=== PATIENT | male | born 1970 | race Caucasian/White ===

== ENCOUNTER 2022-01-25 14:10 | Observation (INO) ==
[2022-01-25 14:50] LABS: Hematocrit (blood only) 30.9 % (40.1-51.0); Hemoglobin 9.9 g/dl (14.0-18.0); Mean Corpuscular Hemoglobin 25.5 pg (25.0-34.0); Mean Corpuscular Volume 79.6 fL (80.0-100.0); Mean Platelet Volume 10.7 fL (9.4-12.4); Platelet Count 214 K/uL (130-400); RDW Coefficient of Variation 13.3 % (11.5-14.5); RDW Standard Deviation 38.7 fL (36.4-46.3); Red Blood Count 3.88 M/uL (4.63-6.08); White Blood Count 8.09 K/ul (4.8-10.8)
[2022-01-25 15:14] LABS: Albumin Globulin Ratio 1.6 (0.9-2); BUN Creatinine Ratio 23.3 (10-20); Bilirubin,Total 0.7 mg/dl (0.2-1.0); Calcium 8.9 mg/dl (8.5-10.1); Creatinine Clr Calc Pharmacy 114.8 ml/min; Est GFR (African American) 112.6 ml/min; Est GFR (Non-African American) 97.2 ml/min; Globulin 2.5 gm/dl (2.5-4.0); Potassium 3.1 mmol/L (3.5-5.1); Total Protein 6.5 gm/dl (6.0-8.3)
[2022-01-25] MEDS ORDERED: POTASSIUM CHLORIDE / WTR 10 MEQ/100 ML PLCT IV ONE (16:17)
[2022-01-25] MEDS ORDERED: SODIUM CHLORIDE 0.9% 1000ML 1,000 ML IV ONE (16:17)
[2022-01-25] MEDS ORDERED: PANTOprazole 40 MG in SYRINGE 0 ML IV ONE (16:17)
[2022-01-25] MEDS ORDERED: ONDANSETRON INJ 2 MG/ML 2 ML VIAL IV STA (16:17)
[2022-01-25] MEDS ORDERED: FAMOTIDINE 20MG IV PUSH 20 MG/5 ML SYR IV STA (16:17)
--- NOTE | 2022-01-25 16:40 | Emergency Department Note ---
Impression & Plan Esophageal mass, Hypokalemia, Vomiting, Acute upper gastrointestinal bleeding, Anemia ED Provider Note NAME: JESSICA NUNEZ AGE: 51 SEX: M : 1970 ARRIVES VIA: Walk-In INFORMANT: Patient, ED PROVIDER(S): Christopher Santacruz DO CHIEF COMPLAINT: Nausea and vomiting HPI: The patient is a 51-year-old male who was recently diagnosed with esophageal mass. He is still awaiting formal work-up and treatment of this mass. He is received no surgery chemotherapy or radiation. He does have a follow-up appointment scheduled with [facility] oncology. He states he has noticed decreased p.o. intake nausea as well as vomiting. He denies having any fever. He denies having any chest pain. He denies having any difficulty breathing. He does note generalized weakness especially with any ambulation. The patient was not seen by his primary care physician today. He came to the emergency department because of ongoing symptoms which have been worsening. The patient has noticed dark stool recently. ROS: See above HPI for pertinent positives & negatives. A total of 10 systems reviewed and were otherwise negative. PAST MEDICAL HISTORY: See Below PAST SURGICAL HISTORY: See Below FAMILY HISTORY: See Below SOCIAL HISTORY: See Below HOME MEDICATIONS: See Below ALLERGIES: See Below VITALS: See Below PHYSICAL EXAMINATION: GENERAL: Patient is awake alert in no acute distress patient is resting comfo rtably and showing no signs of anxiety EYES: The conjunctivae are clear. The pupils are round and reactive. EARS, NOSE, MOUTH AND THROAT: The nose is without any evidence of any deformity. Mucous membranes are dry. NECK: The neck is nontender and supple. RESPIRATORY: Normal respiratory effort is noted there is no evidence of wheezing rhonchi or rales CARDIOVASCULAR: Regular rate and rhythm noted there no murmurs rubs or gallops normal S1 normal S2. GASTROINTESTINAL: The abdomen is soft. Abdomen is nontender. Rectal exam revealed brown stool which was heme positive. PELVIS: The Pelvis is stable. No tenderness to palpation is noted. BACK: No midline tenderness or or step-off noted range of motion in flexion extension as well as rotation no signs of muscle spasm noted MUSCULOSKELETAL/EXTREMITIES: There is no evidence of gross deformity full range of motion is noted in the hips and shoulders. SKIN: There is no obvious evidence of any rash. There are no petechiae, pallor or cyanosis noted. NEUROLOGIC: Patient is awake alert and oriented x3 MEDICAL DECISION MAKING: The patient is a 51-year-old male who presented to the emergency department because of decreased p.o. intake. The patient's had nausea. He has a known esophageal mass. He is trying to finish his work-up as an outpatient for this esophageal mass but he presented to the emergency department tonight because of ongoing symptoms and has not been able to eat. The patient was treated with IV fluids in emergency department. He was reevaluated multiple times. I [facility] the [facility] have agreed to evaluate the patient in the emergency department for further management and disposition. Triage Nursing notes reviewed. Prior medical records reviewed Vital Signs: reviewed and remarkable for no significant abnormalities Differential diagnosis: Infection, dehydration, metabolic abnormality, hypo/hyperglycemia, electrolyte disturbance, anemia, hypoxia, cardiac sources, intracerebral event, toxicologic, neurologic, as well as other pathologies. ER treatment provided: See below Diagnostics interpreted by me: ECG: EKG was obtained in the emergency department. My interpretation is normal sinus rhythm at 72 bpm. There is no ectopy. Nonspecific ST segment depressions were noted throughout. This was compared to a tracing from July 13, 2015. No changes were noted. Cardiac Monitoring: An order was placed for continuous cardiac monitoring. The monitor shows a rate of 63 bpm with sinus rhythm. Laboratory studies: As stated above and show below. Imaging studies: See below Consultation(s): I discussed this case with Lissett who is [facility] They will evaluate the patient in the emergency department. Past Med/Surg History Medical History (Updated 01/25/22 @ 23:28 by Christopher Santacruz DO) Adenocarcinoma Esophageal neoplasm GIB (gastrointestinal bleeding) HTN (hypertension) Hypertension Hypokalemia Social History Smoking Status: Never smoker Second Hand Exposure: No; Do You Dip or Chew Tobacco: No; Hx Alcohol Use: No Hx Substance Use: No Preferred Language: Kinyarwanda Communication Ability: Effective Coding Compliance Auditor Required: No Current Living Situation: Parent Other Information That Helps Us Care for You: No Feels Safe at Home: Yes Safety Concerns: Feels Safe At This Time Assistive Devices: None Allergies Allergies Allergy/AdvReac Type Severity Reaction Status Date / Time No Known Allergies Allergy Unknown Verified 02/05/06 23:06 Results & Data (ED) Vital Signs Vital Signs - 24 hr 01/25/22 14:16 Temperature 36.8 C Temperature Source Temporal Artery Scan Pulse Rate 98 H Respiratory Rate 20 Respiratory Effort / Characteristics Non-Labored Respiratory Depth Normal Blood Pressure 107/71 Blood Pressure Mean 83 Pulse Oximetry 96 Oxygen Delivery Method Room Air Sepsis Recent Fever Within 48 Hours No Sepsis New/Unexplained Change in Mental Status N/A Sepsis Action Taken by Nursing No Action Required Home Medications Current Medication List: was personally reviewed by me Laboratory Data Attestation: I reviewed the patient's lab results. Result diagrams: 01/25/22 21:32 01/25/22 14:39 Lab Results 01/25/22 01/25/22 01/25/22 Range/Units 14:39 14:39 14:39 WBC 8.09 (4.8-10.8) K/ul RBC 3.88 L (4.63-6.08) M/uL Hgb 9.9 L (14.0-18.0) g/dl Hct 30.9 L (40.1-51.0) % MCV 79.6 L (80.0-100.0) fL MCH 25.5 (25.0-34.0) pg MCHC 32.0 (32.0-36.0) g/dL RDW Std Deviation 38.7 (36.4-46.3) fL RDW Coeff of Kong 13.3 (11.5-14.5) % Plt Count 214 (130-400) K/uL MPV 10.7 (9.4-12.4) fL Immature Gran % (Auto) 0.5 % Neut % (Auto) 65.5 % Lymph % (Auto) 23.6 % Liberty % (Auto) 10.1 % Eos % (Auto) 0.1 % Baso % (Auto) 0.2 % Neut # (Auto) 5.29 (1.4-6.5) K/uL Lymph # (Auto) 1.91 (1.2-3.4) K/uL Liberty # (Auto) 0.82 (0.24-0.82) K/uL Eos # (Auto) 0.01 (0-0.50) K/uL Baso # (Auto) 0.02 (0-0.2) K/uL Immature Gran # (Auto) 0.04 H (0.00-0.02) K/uL Sodium 138 (136-145) mmol/L Potassium 3.1 L (3.5-5.1) mmol/L Chloride 98 (98-107) mmol/L Carbon Dioxide 30 (21-32) mmol/L Anion Gap 10 (3-11) BUN 21 (6-23) mg/dl Creatinine 0.90 (0.6-1.4) mg/dl Est Cr Clr Drug Dosing 114.8 ml/min Est GFR ( Amer) 112.6 ml/min Est GFR (Non-Af Amer) 97.2 ml/min BUN/Creatinine Ratio 23.3 H (10-20) Glucose 116 H (70-99(Fasting)) mg/dl Calcium 8.9 (8.5-10.1) mg/dl Magnesium 1.9 (1.7-2.4) mg/dl Total Bilirubin 0.7 (0.2-1.0) mg/dl AST 26 (13-39) U/L ALT 38 (7-52) U/L Alkaline Phosphatase 59 (34-104) U/L Troponin I High Sens 7.6 (0-20) pg/ml Total Protein 6.5 (6.0-8.3) gm/dl Albumin 4.0 (3.4-5.0) gm/dl Globulin 2.5 (2.5-4.0) gm/dl Albumin/Globulin Ratio 1.6 (0.9-2) Lipase 36 (11-82) U/L Administered Medications Potassium Chloride (K [place] / Wtr) 10 meq in 100 mls @ 100 mls/hr IV Q1H LONG Stop: 01/26/22 01:18 Last Admin: 01/25/22 21:50 Dose: 100 mls/hr Documented By: RITA Sodium Chloride (Nss 1000ml) 1,000 mls @ 80 mls/hr IV .[id number] LONG Stop: 02/24/22 21:18 Last Admin: 01/25/22 21:38 Dose: 80 mls/hr Documented By: RITA Discontinued Medications Sodium Chloride (Nss 1000ml) 1,000 mls @ 999 mls/hr IV .[id number] ONE Stop: 01/25/22 17:17 Last Infusion: 01/25/22 17:49 Dose: 0 mls/hr Documented By: Admin: 01/25/22 16:42 Dose: 999 mls/hr Documented By: OL Potassium Chloride (K [place] / Wtr) 10 meq in 100 mls @ 100 mls/hr IV ONE ONE; Protocol Stop: 01/25/22 17:16 Last Infusion: 01/25/22 17:48 Dose: 0 mls/hr Documented By: Admin: 01/25/22 16:42 Dose: 100 mls/hr Documented By: OL Pantoprazole Sodium 40 mg/ (Syringe) 10 mls @ 5 mls/min IV NOW ONE Stop: 01/25/22 16:18 Last Admin: 01/25/22 18:05 Dose: 5 mls/min Documented By: TRH Famotidine (Pepcid 20mg Iv Push) 20 mg in 5 mls @ 2.5 mls/min IV NOW STA Stop: 01/25/22 16:18 Last Admin: 01/25/22 16:42 Dose: 2.5 mls/min Documented By: OL Sodium Chloride (Nss 1000ml) 1,000 mls @ 80 mls/hr IV .[id number] LONG Stop: 02/24/22 18:14 Last Infusion: 01/25/22 21:37 Dose: 80 mls/hr Documented By: Admin: 01/25/22 20:21 Dose: 80 mls/hr Documented By: SM Ondansetron HCl (Ondansetron Inj 2 Mg/Ml 2 Ml Vial) 4 mg IV NOW STA Stop: 01/25/22 16:18 Last Admin: 01/25/22 16:42 Dose: 4 mg Documented By: OL Imaging Data Radiologist's Impression: Chest X-Ray 01/25/22 16:20 XR chest 1V portable HISTORY: Vomiting. COMPARISON: Chest 07/13/2015. FINDINGS: The lungs are clear. Cardiac silhouette is normal in size. No pleural effusions. No pneumothorax. Mild elevation of the right hemidiaphragm, unchanged. IMPRESSION: No acute process. ACT 112: Negative or not required by law. Electronically signed by: Toney Rodney M.D. 01/25/2022 5:36 PM KUB X-Ray 01/25/22 16:20 KUB HISTORY: vomiting COMPARISON: KUB 05/29/2007. FINDINGS: There is a relative paucity of small bowel gas. There are no dilated loops of small bowel to suggest an obstruction. No renal calculi. No ureteral calculi. No pneumoperitoneum or pneumatosis. IMPRESSION: No evidence for bowel obstruction. ACT 112: Negative or not required by law. Electronically signed by: Toney Rodney M.D. 01/25/2022 5:37 PM Discharge Plan Visit Data Chief Complaint: Vomiting Stated Complaint: NAUSEA, VOMITTING ED Provider: Christopher Santacruz Discharge Problem: Esophageal mass, Hypokalemia, Vomiting, Acute upper gastrointestinal bleeding, Anemia Patient Disposition: Admitted As Inpatient Discharge Instructions Interventions: ED Discharge Assessment Last Done: 01/25/22 21:19
[2022-01-25 16:56] LABS: Basophils # (auto) 0.02 K/uL (0-0.2); Basophils % (auto) 0.2 %; Eosinophils # (auto) 0.01 K/uL (0-0.50); Eosinophils % (auto) 0.1 %; Immature Granulocytes # (auto) 0.04 K/uL (0.00-0.02); Immature Granulocytes % (auto) 0.5 %; Lymphocytes # (auto) 1.91 K/uL (1.2-3.4); Lymphocytes % (auto) 23.6 %; Monocytes # (auto) 0.82 K/uL (0.24-0.82); Monocytes % (auto) 10.1 %; Neutrophils # (auto) 5.29 K/uL (1.4-6.5); Neutrophils % (auto) 65.5 %
--- NOTE | 2022-01-25 16:57 | History & Physical Report ---
Date of Service January 25, 2022 Assessment & Plan (1) Esophageal mass: (2) Adenocarcinoma: (3) HTN (hypertension): (4) GIB (gastrointestinal bleeding): (5) Hypokalemia: Plan 51 y/o with recent new diagnosis of esophageal CA/poorly differentiated adenocarcinoma diagnosed 01/09/2022; PET scan to be done 02/11 and f/u with Dr. Centeno. Here with N/V and overall weakness/dehydration. Heme + stool. Hematemesis reported. PPI, antiemetics, GI Consult. Pt is T/C with 2 UPRBC on hold. 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 An EGD was performed on 01/09 with results revealing a hypoechoic mass at the GE junction. He continues to be in the process of obtaining additional testing, including a PET scan. He has not started any chemotherapy or radiation treatment. PET scan scheduled: 02/11; follow up thereafter with Dr. Centeno to discuss tx options. Persistent N/V with hematemesis following EGD. Zofran 4 mg IV Q6 PRN; consider scheduling if becomes intractable GIB: EGD was performed on 01/[address] Dobbs with results revealing a hypoechoic mass at the GE junction Hgb 9.9; On 01/22 Hgb 9.7 and on 01/16 10.3. Trend H/H Q6; reeval in AM. Heme + stool today Pt received IV Pepcid; ordered Protonix 40 mg IV BID GI consult placed and discussed over [place] Text with Dr. Ruiz who is covering this weekend. He will see on Sat 01/26 HTN: SBP 100-105 in ED. Continue Coreg and Lisinopril; hold if hypotensive or bleeding continues Hypokalemia: In the setting of dehydration from vomiting K+ 3.1; received one K+ rider in ED. Will order a total of 4 more K+ riders for a total of 50mEq. Will trend K+ level and replete as necessary. Goals of Care; conversation: Patient has stated that he has considered what he would like to do in the event that his treatment options are limited. He appears to have a reasonable approach to his diagnosis; despite it being so new. He stated that his father at the age of 55 with cancer, but was a smoker. Patient has stated that he would like to be a DNR/DNI in the event of cardiac or respiratory arrest. Would suggest palliative medicine formal consultation to follow along with this gentleman. Disposition: PCP: Dr. Abrams Code Status: DNR/DNI VTE Prophylaxis: Plan to [place]. History of Present Illness Chief Complaint: dehydration, nausea and vomiting Primary Care Provider: Brigid Joseph PA-C Mr. Torres is a 51 year old male who presented to the [facility] with symptoms of dehydration and nausea and vomiting that has been occurring over the past three weeks. He says he has not been able to keep any nourishment inside his body since his EGD. 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 An EGD was performed on 01/09 with results revealing a hypoechoic mass at the GE junction. He continues to be in the process of obtaining additional testing, including a PET scan. He has not started any chemotherapy or radiation treatment. Additional PMH includes: HTN. Patient stool is heme +. No u pper GI symptoms, aside from nausea. Pt was given Pepcid and Zofran in the ED. KUB is pending. GI consult placed and message sent to GI. PPi IV BID, antiemetics, and trending labs ordered. Patient denies VALENTINE, dizziness, SOB, CP, palpitations. Patient is lying in his hospital bed with massey appearance, but AAOx3 and was conversant without difficulty. He stated that he was set to have a PET scan on February 11 and then following would have an appointment with oncologist Dr. Peralta in order to discuss treatment options. Patient will be admitted for further evaluation and management. Please see A/P for further details. Allergies Allergy/AdvReac Type Severity Reaction Status Date / Time No Known Allergies Allergy Unknown Verified 02/05/06 23:06 Past Med/Surg History Medical History (Updated 01/25/22 @ 17:17 by GARRETT Garcia) Adenocarcinoma Esophageal neoplasm GIB (gastrointestinal bleeding) HTN (hypertension) Hypertension Hypokalemia Social History Smoking Status: Never smoker Feels Safe at Home: Yes Review of Systems Review of Systems: Neuro: (-) Falls, trauma, slurred speech HEENT: (-) VALENTINE, dizziness, dysphagia, visual or auditory changes CV: (-) CP, palpitations, swelling Resp: (-) SOB GI: (+) appetite changes, (+) N/V/D, bowel changes : (-) urinary changes Skin: (-) rashes Psych: (-) anxiety, depression Physical Exam Physical Exam: Neuro: AAOx4, PERRLA, no aphagia, memory changes, CNII-XII grossly intact HEENT: head normocephalic, moist mucus membranes CV: S1/S2, (-) M/G/R, (-) edema, cap refill < 3 seconds Resp: Lungs CTA in all weaver. On RA GI: Abdomen S/NT/ND, Ax4 bowel sounds, (-) CVA tenderness Musculoskeletal: 5/5 B/L UE strength, 5/5 B/L LE strength. No gait disturbance Skin: dusky massey appearance. (-) rashes , (-) erythema. Psych: flat mood Results & Data Results & Data ([facility]) Vital Signs (Past 12 Hours) Vital Signs Temp Pulse Resp BP Pulse Ox O2 Del Method 01/25/22 14:16 36.8 C 98 H 20 107/71 96 Room Air Laboratory Results Short CBC 01/25/22 Range/Units 14:39 WBC 8.09 (4.8-10.8) K/ul Hgb 9.9 L (14.0-18.0) g/dl Hct 30.9 L (40.1-51.0) % Plt Count 214 (130-400) K/uL BMP 01/25/22 14:39 Sodium 138 Potassium 3.1 L Chloride 98 Carbon Dioxide 30 BUN 21 Creatinine 0.90 Glucose 116 H Calcium 8.9 Liver Function 01/25/22 Range/Units 14:39 Total Bilirubin 0.7 (0.2-1.0) mg/dl AST 26 (13-39) U/L ALT 38 (7-52) U/L Alkaline Phosphatase 59 (34-104) U/L Albumin 4.0 (3.4-5.0) gm/dl Diagnostic Findings Chest X-Ray 01/25/22 16:20 XR chest 1V portable HISTORY: Vomiting. COMPARISON: Chest 07/13/2015. FINDINGS: The lungs are clear. Cardiac silhouette is normal in size. No pleural effusions. No pneumothorax. Mild elevation of the right hemidiaphragm, unchanged. IMPRESSION: No acute process. ACT 112: Negative or not required by law. Electronically signed by: Toney Rodney M.D. 01/25/2022 5:36 PM KUB X-Ray 01/25/22 16:20 KUB HISTORY: vomiting COMPARISON: KUB 05/29/2007. FINDINGS: There is a relative paucity of small bowel gas. There are no dilated loops of small bowel to suggest an obstruction. No renal calculi. No ureteral calculi. No pneumoperitoneum or pneumatosis. IMPRESSION: No evidence for bowel obstruction. ACT 112: Negative or not required by law. Electronically signed by: Toney Rodney M.D. 01/25/2022 5:37 PM Code Status & VTE Plan Code Status DNR/DNI in the event of cardiac and respiratory arrest VTE Prophylaxis Plan VTE Prophylaxis will be ordered: Yes Supervising Physician Co-Signing Physician Notes 51-year-old gentleman with recent new diagnosis of esophageal cancer [poorly differentiated adenocarcinoma diagnosed 01/09/2022] presented to our ED 01/25 with complaint of nausea/vomiting/weakness/dehydration/inability to put down any food since last few weeks. Patient was found to have Hemoccult positive stool at ED. Hemoglobin around 9.9 at presentation, outpatient hemoglobin around 10.3. Admitting imagings reviewed. Admitting labs reviewed, replete potassium. Renal function appears normal. Admitting troponin WNL, EKG with NSR. GI consult, n.p.o., PPI IV, Zofran, monitor and replete electrolytes. IV fluids. Upon examination: GENERAL: Alert and oriented x3. NAD, on RA. HEENT: No pallor, no icterus. Pupils equal, round and reactive to light. Oral mucosa dry. NECK: No JVD, no neck masses. HEART: S1 and S2 heard. Regular rate and rhythm. No murmur, no gallop. RESPIRATORY SYSTEM: Normal AP diameter. No accessory muscle use. No wheezing, no crackles. ABDOMEN: Soft, bowel sounds present, nontender, no distention. CENTRAL NERVOUS SYSTEM: No facial droop. Speech is clear. Obeys simple commands. Moves extremities. EXTREMITIES: No edema, no erythema seen. I have seen and examined the patient and have discussed the case with the provider above. I agree with the assessment and plan as stated. This is
[2022-01-25] MEDS ORDERED: SODIUM CHLORIDE 0.9% 250 ML IV PRN (17:09)
--- NOTE | 2022-01-25 17:37 | XRay Report ---
XR chest 1V portable HISTORY: Vomiting. COMPARISON: Chest 07/13/2015. FINDINGS: The lungs are clear. Cardiac silhouette is normal in size. No pleural effusions. No pneumot horax. Mild elevation of the right hemidiaphragm, unchanged. IMPRESSION: No acute process. ACT 112: Negative or not required by law. Electronically signed by: Toney Rodney M.D. 01/25/2022 5:36 PM
--- NOTE | 2022-01-25 17:39 | XRay Report ---
KUB HISTORY: vomiting COMPARISON: KUB 05/29/2007. FINDINGS: There is a relative paucity of small bowel gas. There are no dilated loops of small bowel t o suggest an obstruction. No renal calculi. No ureteral calculi. No pneumoperitoneum or pneumatosis. IMPRESSION: No evidence for bowel obstruction. ACT 112: Negative or not required by law. Electronically signed by: Toney Rodney M.D. 01/25/2022 5:37 PM
[2022-01-25 17:43] LABS: Magnesium 1.9 mg/dl (1.7-2.4)
[2022-01-25 17:45] LABS: Troponin I High Sensitivity 7.6 pg/ml (0-20)
[2022-01-25] MEDS ORDERED: SODIUM CHLORIDE 0.9% 1000ML 1,000 ML IV SCH (18:15)
[2022-01-25] MEDS ORDERED: ONDANSETRON INJ 2 MG/ML 2 ML VIAL IV PRN (21:19)
[2022-01-25] MEDS: SODIUM CHLORIDE 0.9% 1000ML 1,000 ML IV SCH (21:38)
[2022-01-25 21:42] LABS: Hematocrit (blood only) 28.3 % (40.1-51.0); Hemoglobin 8.8 g/dl (14.0-18.0)
[2022-01-25] MEDS: POTASSIUM CHLORIDE / WTR 10 MEQ/100 ML PLCT IV SCH (21:50)
[2022-01-26] MEDS: POTASSIUM CHLORIDE / WTR 10 MEQ/100 ML PLCT IV SCH ×5 (00:25→10:08)
[2022-01-26 03:39] LABS: Hematocrit (blood only) 27.6 % (40.1-51.0); Hemoglobin 8.6 g/dl (14.0-18.0); Mean Corpuscular Hgb Conc 31.2 g/dL (32.0-36.0); Mean Corpuscular Volume 80.2 fL (80.0-100.0); Mean Platelet Volume 10.5 fL (9.4-12.4); Platelet Count 194 K/uL (130-400); RDW Coefficient of Variation 13.2 % (11.5-14.5); RDW Standard Deviation 38.5 fL (36.4-46.3); Red Blood Count 3.44 M/uL (4.63-6.08); White Blood Count 7.33 K/ul (4.8-10.8)
[2022-01-26 03:57] LABS: BUN Creatinine Ratio 23.4 (10-20); Calcium 8.1 mg/dl (8.5-10.1); Creatinine Clr Calc Pharmacy 134.8 ml/min; Est GFR (African American) 120.1 ml/min; Est GFR (Non-African American) 103.6 ml/min; Potassium 3.4 mmol/L (3.5-5.1)
--- NOTE | 2022-01-26 07:20 | Electrocardiogram Report ---
Test Reason : Blood Pressure : / mmHG Vent. Rate : 072 BPM Atrial Rate : 072 BPM P-R Int : 146 ms QRS Dur : 100 ms QT Int : 416 ms P-R-T Axes : 055 -16 037 degrees QTc Int : 455 ms Normal sinus rhythm Incomplete right bundle branch block Abnormal ECG When compared with ECG of 13-JUL-2015 19:38, No significant change was found Confirmed by Enrico Deutsch ([id number]) on 01/26/2022 7:20:23 AM Referred By: REFERRED SELF Confirmed By:Armando Deutsch
--- NOTE | 2022-01-26 08:16 | XRay Report ---
XR chest 1V portable HISTORY: post-operative coughing and wheezing COMPARISON: Chest 01/25/2022. FINDINGS: The lungs are clear. Cardiac silhouette is normal in size. No pleural effusions. No pneumot horax. IMPRESSION: No acute process. ACT 112: Negative or not required by law. Electronically signed by: Toney Rodney M.D. 01/26/2022 8:14 AM
--- NOTE | 2022-01-26 08:24 | Hospitalist Progress Note ---
Date of Service January 26, 2022 Assessment & Plan (1) Esophageal mass: (2) Adenocarcinoma: (3) HTN (hypertension): (4) GIB (gastrointestinal bleeding): (5) Hypokalemia: Plan 51 y/o with recent new diagnosis of esophageal CA/poorly differentiated adenocarcinoma diagnosed 01/09/2022; PET scan to be done 02/11 and f/u with Dr. Centeno. Here with N/V and overall weakness/dehydration. Heme + stool. Hematemesis reported. PPI, antiemetics, GI Consult. Pt is T/C with 2 UPRBC on hold. 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 An EGD was performed on 01/09 with results revealing a hypoechoic mass at the GE junction. He continues to be in the process of obtaining additional testing, including a PET scan. He has not started any chemotherapy or radiation treatment. PET scan scheduled: 02/11; follow up thereafter with Dr. Centeno to discuss tx options. Persistent N/V with hematemesis following EGD. Zofran 4 mg IV Q6 PRN; consider scheduling if becomes intractable 01/26 -clinically much improved, no more nausea vomiting. No abdominal pain. GIB: EGD was performed on 01/[address] Dobbs with results revealing a hypoechoic m ass at the GE junction Hgb 9.9; On 01/22 Hgb 9.7 and on 01/16 10.3. Trend H/H Q6; reeval in AM. Heme + stool today Pt received IV Pepcid; ordered Protonix 40 mg IV BID GI consult placed and discussed w/Dr. Ruiz 01/26 -patient seen by GI, no need for EGD at this time. Hemoglobin stable. Patient did not require any blood transfusion. Per GI, okay to start liquid diet, and follow-up with oncology. HTN: SBP 100-105 in ED. Current BP 123/74 at home on? Coreg and Lisinopril- hold for low BP Hypokalemia: In the setting of dehydration from vomiting K+ 3.1 on admission, improved to 3.4 today cont. w/ IV supplement. Will start liquid diet Goals of Care; conversation: Patient has stated that he has considered what he would like to do in the event that his treatment options are limited. He appears to have a reasonable approach to his diagnosis; despite it being so new. He stated that his father at the age of 55 with cancer, but was a smoker. Patient has stated that he would like to be a DNR/DNI in the event of cardiac or respiratory arrest. Would suggest palliative medicine formal consultation to follow along with this gentleman. Disposition: PCP: Dr. Abrams Code Status: DNR/DNI VTE Prophylaxis: Plan to return home at [place]. Admission and Anticipated Discharge Date Admission Date: January 25, 2022 Subjective Pt seen in follow up n/v, new myraoph. ca GI consulted Currently patient lying in bed, in no acute distress No more nausea or vomiting, also denies any abdominal pain Hgb stable, pt did not require any blood transfusion Seen by GI, no EGD recommended at this time, will start liquid diet Will try to see if dietitian is available this weekend Patient otherwise denies any fevers, chills, chest pain, shortness of breath. He has follow-ups with oncology scheduled. Review of Systems Review of Systems: All systems reviewed & are unremarkable except as noted in Subjective Physical Exam Physical Exam: GENERAL: Alert and oriented x3. NAD, on RA. HEENT: NC/AT, No pallor, no icterus.EOMI. Pupils equal, round and reactive to light. Oral mucosa dry. NECK: No JVD, no neck masses. HEART: S1 and S2 heard. Regular rate and rhythm. No murmur, no gallop. RESPIRATORY: Normal AP diameter. No accessory muscle use. No wheezing, no crackles. ABDOMEN: Soft, bowel sounds present, nontender, no distention. NEURO: alert, oriented x3, no facial droop. Speech is clear. Obeys simple commands. Moves extremities. EXTREMITIES: No edema, no erythema seen. Results & Data Results & Data ([facility]) Vital Signs (Past 12 Hours) Vital Signs Temp Pulse Pulse Pulse Resp BP BP 01/26/22 08:14 37.4 C 76 18 123/74 01/26/22 07:18 65 01/26/22 03:38 37.0 C 71 18 122/72 01/26/22 00:08 68 01/26/22 00:06 37.0 C 64 12 129/75 01/25/22 23:30 66 17 136/84 01/25/22 23:08 67 20 146/84 H 01/25/22 23:00 68 17 120/80 01/25/22 21:40 63 18 123/75 01/25/22 21:39 69 18 123/75 Pulse Ox O2 Del Method 01/26/22 08:14 94 Room Air 01/26/22 07:18 01/26/22 03:38 94 Room Air 01/26/22 00:08 01/26/22 00:06 96 Room Air 01/25/22 23:30 96 Room Air 01/25/22 23:08 97 Room Air 01/25/22 23:00 97 Room Air 01/25/22 21:40 97 Room Air 01/25/22 21:39 97 Room Air Laboratory Results 01/26/22 01/26/22 01/25/22 Range/Units 03:28 03:28 21:32 WBC 7.33 (4.8-10.8) K/ul RBC 3.44 L (4.63-6.08) M/uL Hgb 8.6 L 8.8 L (14.0-18.0) g/dl Hct 27.6 L 28.3 L (40.1-51.0) % MCV 80.2 (80.0-100.0) fL MCH 25.0 (25.0-34.0) pg MCHC 31.2 L (32.0-36.0) g/dL RDW Std Deviation 38.5 (36.4-46.3) fL RDW Coeff of [place] 13.2 (11.5-14.5) % Plt Count 194 (130-400) K/uL MPV 10.5 (9.4-12.4) fL Immature Gran % (Auto) % Neut % (Auto) % Lymph % (Auto) % [place] % (Auto) % Eos % (Auto) % Baso % (Auto) % Neut # (Auto) (1.4-6.5) K/uL Lymph # (Auto) (1.2-3.4) K/uL [place] # (Auto) (0.24-0.82) K/uL Eos # (Auto) (0-0.50) K/uL Baso # (Auto) (0-0.2) K/uL Immature Gran # (Auto) (0.00-0.02) K/uL Sodium 137 (136-145) mmol/L Potassium 3.4 L (3.5-5.1) mmol/L Chloride 102 (98-107) mmol/L Carbon Dioxide 26 (21-32) mmol/L Anion Gap 9 (3-11) BUN 18 (6-23) mg/dl Creatinine 0.77 (0.6-1.4) mg/dl Est Cr Clr Drug Dosing 134.8 ml/min Est GFR ( Amer) 120.1 ml/min Est GFR (Non-Af Amer) 103.6 ml/min BUN/Creatinine Ratio 23.4 H (10-20) Glucose 84 (70-99(Fasting)) mg/dl Calcium 8.1 L (8.5-10.1) mg/dl Magnesium (1.7-2.4) mg/dl Total Bilirubin (0.2-1.0) mg/dl AST (13-39) U/L ALT (7-52) U/L Alkaline Phosphatase (34-104) U/L Troponin I High Sens (0-20) pg/ml Total Protein (6.0-8.3) gm/dl Albumin (3.4-5.0) gm/dl Globulin (2.5-4.0) gm/dl Albumin/Globulin Ratio (0.9-2) Lipase (11-82) U/L SARS-CoV-2, RNA, NAAT (NEGATIVE) Blood Type Blood Type Recheck Antibody Screen Crossmatch 01/25/22 01/25/22 01/25/22 Range/Units 18:08 17:50 17:21 WBC (4.8-10.8) K/ul RBC (4.63-6.08) M/uL Hgb (14.0-18.0) g/dl Hct (40.1-51.0) % MCV (80.0-100.0) fL MCH (25.0-34.0) pg MCHC (32.0-36.0) g/dL RDW Std Deviation (36.4-46.3) fL RDW Coeff of [place] (11.5-14.5) % Plt Count (130-400) K/uL MPV (9.4-12.4) fL Immature Gran % (Auto) % Neut % (Auto) % Lymph % (Auto) % [place] % (Auto) % Eos % (Auto) % Baso % (Auto) % Neut # (Auto) (1.4-6.5) K/uL Lymph # (Auto) (1.2-3.4) K/uL [place] # (Auto) (0.24-0.82) K/uL Eos # (Auto) (0-0.50) K/uL Baso # (Auto) (0-0.2) K/uL Immature Gran # (Auto) (0.00-0.02) K/uL Sodium (136-145) mmol/L Potassium (3.5-5.1) mmol/L Chloride (98-107) mmol/L Carbon Dioxide (21-32) mmol/L Anion Gap (3-11) BUN (6-23) mg/dl Creatinine (0.6-1.4) mg/dl Est Cr Clr Drug Dosing ml/min Est GFR ( Amer) ml/min Est GFR (Non-Af Amer) ml/min BUN/Creatinine Ratio (10-20) Glucose (70-99(Fasting)) mg/dl Calcium (8.5-10.1) mg/dl Magnesium (1.7-2.4) mg/dl Total Bilirubin (0.2-1.0) mg/dl AST (13-39) U/L ALT (7-52) U/L Alkaline Phosphatase (34-104) U/L Troponin I High Sens (0-20) pg/ml Total Protein (6.0-8.3) gm/dl Albumin (3.4-5.0) gm/dl Globulin (2.5-4.0) gm/dl Albumin/Globulin Ratio (0.9-2) Lipase (11-82) U/L SARS-CoV-2, RNA, NAAT NEGATIVE (NEGATIVE) Blood Type O Positive Blood Type Recheck O Positive Antibody Screen NEGATIVE Crossmatch See Detail 01/25/22 01/25/22 01/25/22 Range/Units 14:39 14:39 14:39 WBC 8.09 (4.8-10.8) K/ul RBC 3.88 L (4.63-6.08) M/uL Hgb 9.9 L (14.0-18.0) g/dl Hct 30.9 L (40.1-51.0) % MCV 79.6 L (80.0-100.0) fL MCH 25.5 (25.0-34.0) pg MCHC 32.0 (32.0-36.0) g/dL RDW Std Deviation 38.7 (36.4-46.3) fL RDW Coeff of [place] 13.3 (11.5-14.5) % Plt Count 214 (130-400) K/uL MPV 10.7 (9.4-12.4) fL Immature Gran % (Auto) 0.5 % Neut % (Auto) 65.5 % Lymph % (Auto) 23.6 % [place] % (Auto) 10.1 % Eos % (Auto) 0.1 % Baso % (Auto) 0.2 % Neut # (Auto) 5.29 (1.4-6.5) K/uL Lymph # (Auto) 1.91 (1.2-3.4) K/uL [place] # (Auto) 0.82 (0.24-0.82) K/uL Eos # (Auto) 0.01 (0-0.50) K/uL Baso # (Auto) 0.02 (0-0.2) K/uL Immature Gran # (Auto) 0.04 H (0.00-0.02) K/uL Sodium 138 (136-145) mmol/L Potassium 3.1 L (3.5-5.1) mmol/L Chloride 98 (98-107) mmol/L Carbon Dioxide 30 (21-32) mmol/L Anion Gap 10 (3-11) BUN 21 (6-23) mg/dl Creatinine 0.90 (0.6-1.4) mg/dl Est Cr Clr Drug Dosing 114.8 ml/min Est GFR ( Amer) 112.6 ml/min Est GFR (Non-Af Amer) 97.2 ml/min BUN/Creatinine Ratio 23.3 H (10-20) Glucose 116 H (70-99(Fasting)) mg/dl Calcium 8.9 (8.5-10.1) mg/dl Magnesium 1.9 (1.7-2.4) mg/dl Total Bilirubin 0.7 (0.2-1.0) mg/dl AST 26 (13-39) U/L ALT 38 (7-52) U/L Alkaline Phosphatase 59 (34-104) U/L Troponin I High Sens 7.6 (0-20) pg/ml Total Protein 6.5 (6.0-8.3) gm/dl Albumin 4.0 (3.4-5.0) gm/dl Globulin 2.5 (2.5-4.0) gm/dl Albumin/Globulin Ratio 1.6 (0.9-2) Lipase 36 (11-82) U/L SARS-CoV-2, RNA, NAAT (NEGATIVE) Blood Type Blood Type Recheck Antibody Screen Crossmatch Medications Administered Current Inpatient Medications Pantoprazole Sodium 40 mg/ (Syringe) 10 mls @ 5 mls/min IV BID LONG Stop: 02/25/22 08:59 Sodium Chloride (Nss 1000ml) 1,000 mls @ 80 mls/hr IV .[id number] LONG Stop: 02/24/22 21:18 Last Infusion: 01/26/22 01:29 Dose: 80 mls/hr Potassium Chloride (K [place] / Wtr) 10 meq in 100 mls @ 100 mls/hr IV Q1H LONG Stop: 01/26/22 10:29 Ondansetron HCl (Ondansetron Inj 2 Mg/Ml 2 Ml Vial) 4 mg IV Q6H PRN PRN Reason: Nausea And Vomiting Stop: 02/24/22 21:18
[2022-01-26] MEDS ORDERED: PANTOprazole 40 MG in SYRINGE 0 ML IV SCH (09:00)
[2022-01-26 09:35] LABS: Hematocrit (blood only) 27.6 % (40.1-51.0); Hemoglobin 8.7 g/dl (14.0-18.0)
[2022-01-26] MEDS: SODIUM CHLORIDE 0.9% 1000ML 1,000 ML IV SCH (10:09)
--- NOTE | 2022-01-26 10:18 | Gastrointestinal Consultation ---
Date of Consultation January 26, 2022 Assessment & Plan (1) GIB (gastrointestinal bleeding): Pleasant man unfortunately recently diagnosed with esophageal cancer. While he is bringing up blood this is most likely due to the friable nature of his malignancy and there isn't much that we can or need to do for this. His symptoms that he is having are the same symptoms he had prior to diagnosis. The only viable treatment is to start undergoing treatment directed at his malignancy. Endoscopically the only thing that can be done for him is esophageal stent which would only be a last resort. He can actually go home when he feels up to it. He will need to subsist on thin liquids with supplements until tr eatment underway Present on Admission?: Yes (2) Esophageal mass: As above. The only thing to offer him is treatment directed at his malignancy Present on Admission?: Yes History of Present Illness Reason for Consultation: hematemesis Requesting Physician: Carina Reid MD Attending Physician: Shaquille Quesada MD History of Present Illness 51 year old man diagnosed with esophageal cancer on EGD earlier in December. He went to the doctor because he couldn't keep anything down. He was told he had a cancer with possibly a few lymph nodes. He has met with an oncologist and treatment will be decided on meeting after PET scan is done on 02/11. Since the EGD he has continued with his same symptoms. He says that stuff just comes back up on him. On occasion there can be some blood with it. He has trouble with water as well although some stuff stays down. He has no pain and he says he isn't really vomiting. He wasn't battling much with heartburn but did have an EGD 15 years ago that "showed inflammation Allergies Allergy/AdvReac Type Severity Reaction Status Date / Time No Known Allergies Allergy Unknown Verified 02/05/06 23:06 Patient History Medical History (Updated 01/26/22 @ 10:14 by Thomas Ruiz Jr, MD) Adenocarcinoma Esophageal mass Esophageal neoplasm GIB (gastrointestinal bleeding) HTN (hypertension) Hypertension Hypokalemia Social History Smoking Status: Never smoker Second Hand Exposure: No; Do You Dip or Chew Tobacco: No; Hx Alcohol Use: No Hx Substance Use: No Preferred Language: Kuwaiti Communication Ability: Effective Cat Scan Tech Required: No Current Living Situation: Parent Other Information That Helps Us Care for You: No Feels Safe at Home: Yes Safety Concerns: Feels Safe At This Time Assistive Devices: None Review of Systems Review of Systems: All systems reviewed & are unremarkable except as noted in HPI & below Physical Exam Constitutional: WD/WN, vitals as above Eyes: PERRL, conjunctivae normal, anicteric sclerae ENMT: external ear and nose normal, oropharynx normal Neck: trachea midline, no thyromegaly Respiratory: normal respiratory effort, lungs clear to auscultation Cardiovascular: RRR, no murmur, no edema Gastrointestinal (Abdomen): normal bowel sounds, soft, nontender, no hepatosplenomegaly Musculoskeletal: no cyanosis or clubbing, extremities motor strength 5/5 Skin: no rashes, warm and dry Psychiatric: Orientation: alert and oriented x 3 Results & Data ([facility]) Vital Signs (Past 12 Hours) Vital Signs Temp Pulse Pulse Resp BP BP Pulse Ox 01/26/22 09:00 01/26/22 08:14 37.4 C 76 18 123/74 94 01/26/22 07:18 65 01/26/22 03:38 37.0 C 71 18 122/72 94 01/26/22 00:08 68 01/26/22 00:06 37.0 C 64 12 129/75 96 01/25/22 23:30 66 17 136/84 96 01/25/22 23:08 67 20 146/84 H 97 01/25/22 23:00 68 17 120/80 97 O2 Del Method 01/26/22 09:00 Room Air 01/26/22 08:14 Room Air 01/26/22 07:18 01/26/22 03:38 Room Air 01/26/22 00:08 01/26/22 00:06 Room Air 01/25/22 23:30 Room Air 01/25/22 23:08 Room Air 01/25/22 23:00 Room Air Laboratory Results 01/26/22 01/26/22 01/26/22 Range/Units 09:15 03:28 03:28 WBC 7.33 (4.8-10.8) K/ul RBC 3.44 L (4.63-6.08) M/uL Hgb 8.7 L 8.6 L (14.0-18.0) g/dl Hct 27.6 L 27.6 L (40.1-51.0) % MCV 80.2 (80.0-100.0) fL MCH 25.0 (25.0-34.0) pg MCHC 31.2 L (32.0-36.0) g/dL RDW Std Deviation 38.5 (36.4-46.3) fL RDW Coeff of [place] 13.2 (11.5-14.5) % Plt Count 194 (130-400) K/uL MPV 10.5 (9.4-12.4) fL Immature Gran % (Auto) % Neut % (Auto) % Lymph % (Auto) % [place] % (Auto) % Eos % (Auto) % Baso % (Auto) % Neut # (Auto) (1.4-6.5) K/uL Lymph # (Auto) (1.2-3.4) K/uL [place] # (Auto) (0.24-0.82) K/uL Eos # (Auto) (0-0.50) K/uL Baso # (Auto) (0-0.2) K/uL Immature Gran # (Auto) (0.00-0.02) K/uL Sodium 137 (136-145) mmol/L Potassium 3.4 L (3.5-5.1) mmol/L Chloride 102 (98-107) mmol/L Carbon Dioxide 26 (21-32) mmol/L Anion Gap 9 (3-11) BUN 18 (6-23) mg/dl Creatinine 0.77 (0.6-1.4) mg/dl Est Cr Clr Drug Dosing 134.8 ml/min Est GFR ( Amer) 120.1 ml/min Est GFR (Non-Af Amer) 103.6 ml/min BUN/Creatinine Ratio 23.4 H (10-20) Glucose 84 (70-99(Fasting)) mg/dl Calcium 8.1 L (8.5-10.1) mg/dl Magnesium (1.7-2.4) mg/dl Total Bilirubin (0.2-1.0) mg/dl AST (13-39) U/L ALT (7-52) U/L Alkaline Phosphatase (34-104) U/L Troponin I High Sens (0-20) pg/ml Total Protein (6.0-8.3) gm/dl Albumin (3.4-5.0) gm/dl Globulin (2.5-4.0) gm/dl Albumin/Globulin Ratio (0.9-2) Lipase (11-82) U/L SARS-CoV-2, RNA, NAAT (NEGATIVE) Blood Type Blood Type Recheck Antibody Screen Crossmatch 01/25/22 01/25/22 01/25/22 Range/Units 21:32 18:08 17:50 WBC (4.8-10.8) K/ul RBC (4.63-6.08) M/uL Hgb 8.8 L (14.0-18.0) g/dl Hct 28.3 L (40.1-51.0) % MCV (80.0-100.0) fL MCH (25.0-34.0) pg MCHC (32.0-36.0) g/dL RDW Std Deviation (36.4-46.3) fL RDW Coeff of [place] (11.5-14.5) % Plt Count (130-400) K/uL MPV (9.4-12.4) fL Immature Gran % (Auto) % Neut % (Auto) % Lymph % (Auto) % [place] % (Auto) % Eos % (Auto) % Baso % (Auto) % Neut # (Auto) (1.4-6.5) K/uL Lymph # (Auto) (1.2-3.4) K/uL [place] # (Auto) (0.24-0.82) K/uL Eos # (Auto) (0-0.50) K/uL Baso # (Auto) (0-0.2) K/uL Immature Gran # (Auto) (0.00-0.02) K/uL Sodium (136-145) mmol/L Potassium (3.5-5.1) mmol/L Chloride (98-107) mmol/L Carbon Dioxide (21-32) mmol/L Anion Gap (3-11) BUN (6-23) mg/dl Creatinine (0.6-1.4) mg/dl Est Cr Clr Drug Dosing ml/min Est GFR ( Amer) ml/min Est GFR (Non-Af Amer) ml/min BUN/Creatinine Ratio (10-20) Glucose (70-99(Fasting)) mg/dl Calcium (8.5-10.1) mg/dl Magnesium (1.7-2.4) mg/dl Total Bilirubin (0.2-1.0) mg/dl AST (13-39) U/L ALT (7-52) U/L Alkaline Phosphatase (34-104) U/L Troponin I High Sens (0-20) pg/ml Total Protein (6.0-8.3) gm/dl Albumin (3.4-5.0) gm/dl Globulin (2.5-4.0) gm/dl Albumin/Globulin Ratio (0.9-2) Lipase (11-82) U/L SARS-CoV-2, RNA, NAAT NEGATIVE (NEGATIVE) Blood Type Blood Type Recheck O Positive Antibody Screen Crossmatch 01/25/22 01/25/22 01/25/22 Range/Units 17:21 14:39 14:39 WBC (4.8-10.8) K/ul RBC (4.63-6.08) M/uL Hgb (14.0-18.0) g/dl Hct (40.1-51.0) % MCV (80.0-100.0) fL MCH (25.0-34.0) pg MCHC (32.0-36.0) g/dL RDW Std Deviation (36.4-46.3) fL RDW Coeff of [place] (11.5-14.5) % Plt Count (130-400) K/uL MPV (9.4-12.4) fL Immature Gran % (Auto) % Neut % (Auto) % Lymph % (Auto) % [place] % (Auto) % Eos % (Auto) % Baso % (Auto) % Neut # (Auto) (1.4-6.5) K/uL Lymph # (Auto) (1.2-3.4) K/uL [place] # (Auto) (0.24-0.82) K/uL Eos # (Auto) (0-0.50) K/uL Baso # (Auto) (0-0.2) K/uL Immature Gran # (Auto) (0.00-0.02) K/uL Sodium 138 (136-145) mmol/L Potassium 3.1 L (3.5-5.1) mmol/L Chloride 98 (98-107) mmol/L Carbon Dioxide 30 (21-32) mmol/L Anion Gap 10 (3-11) BUN 21 (6-23) mg/dl Creatinine 0.90 (0.6-1.4) mg/dl Est Cr Clr Drug Dosing 114.8 ml/min Est GFR ( Amer) 112.6 ml/min Est GFR (Non-Af Amer) 97.2 ml/min BUN/Creatinine Ratio 23.3 H (10-20) Glucose 116 H (70-99(Fasting)) mg/dl Calcium 8.9 (8.5-10.1) mg/dl Magnesium 1.9 (1.7-2.4) mg/dl Total Bilirubin 0.7 (0.2-1.0) mg/dl AST 26 (13-39) U/L ALT 38 (7-52) U/L Alkaline Phosphatase 59 (34-104) U/L Troponin I High Sens 7.6 (0-20) pg/ml Total Protein 6.5 (6.0-8.3) gm/dl Albumin 4.0 (3.4-5.0) gm/dl Globulin 2.5 (2.5-4.0) gm/dl Albumin/Globulin Ratio 1.6 (0.9-2) Lipase 36 (11-82) U/L SARS-CoV-2, RNA, NAAT (NEGATIVE) Blood Type O Positive Blood Type Recheck Antibody Screen NEGATIVE Crossmatch See Detail 01/25/22 Range/Units 14:39 WBC 8.09 (4.8-10.8) K/ul RBC 3.88 L (4.63-6.08) M/uL Hgb 9.9 L (14.0-18.0) g/dl Hct 30.9 L (40.1-51.0) % MCV 79.6 L (80.0-100.0) fL MCH 25.5 (25.0-34.0) pg MCHC 32.0 (32.0-36.0) g/dL RDW Std Deviation 38.7 (36.4-46.3) fL RDW Coeff of [place] 13.3 (11.5-14.5) % Plt Count 214 (130-400) K/uL MPV 10.7 (9.4-12.4) fL Immature Gran % (Auto) 0.5 % Neut % (Auto) 65.5 % Lymph % (Auto) 23.6 % [place] % (Auto) 10.1 % Eos % (Auto) 0.1 % Baso % (Auto) 0.2 % Neut # (Auto) 5.29 (1.4-6.5) K/uL Lymph # (Auto) 1.91 (1.2-3.4) K/uL [place] # (Auto) 0.82 (0.24-0.82) K/uL Eos # (Auto) 0.01 (0-0.50) K/uL Baso # (Auto) 0.02 (0-0.2) K/uL Immature Gran # (Auto) 0.04 H (0.00-0.02) K/uL Sodium (136-145) mmol/L Potassium (3.5-5.1) mmol/L Chloride (98-107) mmol/L Carbon Dioxide (21-32) mmol/L Anion Gap (3-11) BUN (6-23) mg/dl Creatinine (0.6-1.4) mg/dl Est Cr Clr Drug Dosing ml/min Est GFR ( Amer) ml/min Est GFR (Non-Af Amer) ml/min BUN/Creatinine Ratio (10-20) Glucose (70-99(Fasting)) mg/dl Calcium (8.5-10.1) mg/dl Magnesium (1.7-2.4) mg/dl Total Bilirubin (0.2-1.0) mg/dl AST (13-39) U/L ALT (7-52) U/L Alkaline Phosphatase (34-104) U/L Troponin I High Sens (0-20) pg/ml Total Protein (6.0-8.3) gm/dl Albumin (3.4-5.0) gm/dl Globulin (2.5-4.0) gm/dl Albumin/Globulin Ratio (0.9-2) Lipase (11-82) U/L SARS-CoV-2, RNA, NAAT (NEGATIVE) Blood Type Blood Type Recheck Antibody Screen Crossmatch
--- NOTE | 2022-01-26 14:45 | Discharge Summary ---
Date of Service January 26, 2022 Admission HPI Per Admitting Provider Mr. Torres is a 51 year old male who presented to the [facility] with symptoms of dehydration and nausea and vomiting that has been occurring over the past three weeks. He says he has not been able to keep any nourishment inside his body since his EGD. 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 An EGD was performed on 01/09 with results revealing a hypoechoic mass at the GE junction. He continues to be in the process of obtaining additional testing, including a PET scan. He has not started any chemotherapy or radiation treatment. Additional PMH includes: HTN. Patient stool is heme +. No upper GI symptoms, aside from nausea. Pt was given Pepcid and Zofran in the ED. KUB is pending. GI consult placed and message sent to GI. PPi IV BID, antiemetics, and trending labs ordered. Patient denies VALENTINE, dizziness, SOB, CP, palpitations. Patient is lying in his hospital bed with massey appearance, but AAOx3 and was conversant without difficulty. He stated that he was set to have a PET scan on February 11 and then following would have an appointment with oncologist Dr. Peralta in order to discuss treatment options. Patient will be admitted for further evaluation and management. Please see A/P for further details. Admission Exam Per Admitting Provider GENERAL: Alert and oriented x3. NAD, on RA. HEENT: No pallor, no icterus. Pupils equal, round and reactive to light. Oral mucosa dry. NECK: No JVD, no neck masses. HEART: S1 and S2 heard. Regular rate and rhythm. No murmur, no gallop. RESPIRATORY SYSTEM: Normal AP diameter. No accessory muscle use. No wheezing, no crackles. ABDOMEN: Soft, bowel sounds present, nontender, no distention. CENTRAL NERVOUS SYSTEM: No facial droop. Speech is clear. Obeys simple commands. Moves extremities. EXTREMITIES: No edema, no erythema seen. Principal Diagnosis Nausea vomiting, hypokalemia, anemia, known esophageal cancer Discharge Exam GENERAL: Alert and oriented x3. NAD, on RA. HEENT: NC/AT, No pallor, no icterus.EOMI. Pupils equal, round and reactive to light. Oral mucosa dry. NECK: No JVD, no neck masses. HEART: S1 and S2 heard. Regular rate and rhythm. No murmur, no gallop. RESPIRATORY: Normal AP diameter. No accessory muscle use. No wheezing, no crackles. ABDOMEN: Soft, bowel sounds present, nontender, no distention. NEURO: alert, oriented x3, no facial droop. Speech is clear. Obeys simple commands. Moves extremities. EXTREMITIES: No edema, no erythema seen. Discharge Data Allergies Allergy/AdvReac Type Severity Reaction Status Date / Time No Known Allergies Allergy Unknown Verified 02/05/06 23:06 Consultations 01/25/22 17:01 ED Decision to Admit Stat 01/25/22 17:53 Consult Gastroenterology Routine Hospital Course (1) Esophageal mass: (2) Adenocarcinoma: (3) HTN (hypertension): (4) GIB (gastrointestinal bleeding): (5) Hypokalemia: Plan 51 y/o with recent new diagnosis of esophageal CA/poorly differentiated adenocarcinoma diagnosed 01/09/2022; PET scan to be done 02/11 and f/u with Dr. Centeno. Here with N/V and overall weakness/dehydration. Heme + stool. Hematemesis reported. PPI, antiemetics, GI Consult. Pt is T/C with 2 UPRBC on hold. 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 An EGD was performed on 01/09 with results revealing a hypoechoic mass at the GE junction. He continues to be in the process of obtaining additional testing, including a PET scan. He has not started any chemotherapy or radiation treatment. PET scan scheduled: 02/11; follow up thereafter with Dr. Centeno to discuss tx options. Persistent N/V with hematemesis following EGD. Zofran 4 mg IV Q6 PRN; consider scheduling if becomes intractable 01/26 -clinically much improved, no more nausea vomiting. No abdominal pain. GIB: EGD was performed on 01/[address] Dobbs with results revealing a hypoechoic mass at the GE junction Hgb 9.9; On 01/22 Hgb 9.7 and on 01/16 10.3. Trend H/H Q6; reeval in AM. Heme + stool today Pt received IV Pepcid; ordered Protonix 40 mg IV BID GI consult placed and discussed w/Dr. Ruiz 9/3 -patient seen by GI, no need for EGD at this time. Hemoglobin stable. Patient did not require any blood transfusion. Per GI, okay to start liquid diet, and follow-up with oncology. Financial Counselor was consulted, and provided information for the patient, how to sustain caloric intake with liquid diet. HTN: SBP 100-105 in ED. Current BP 123/74 at home on? Coreg and Lisinopril- hold for low BP Hypokalemia: In the setting of dehydration from vomiting K+ 3.1 on admission, improved to 3.4 today cont. w/ IV supplement. Started liquid diet, tolerating so far. No n/v Goals of Care; conversation: Patient has stated that he has considered what he would like to do in the event that his treatment options are limited. He appears to have a reasonable approach to his diagnosis; despite it being so new. He stated that his father at the age of 55 with cancer, but was a smoker. Patient has stated that he would like to be a DNR/DNI in the event of cardiac or respiratory arrest. Would suggest palliative medicine formal consultation to follow along with this gentleman. Total Time Total Time Spent Total Time Spent (In Minutes): 40 Discharge Plan Discharge Items Patient Disposition: Home - Self-Care Reason For Visit: NAUSEA, VOMITTING Discharge Diagnosis: Nausea vomiting, hypokalemia, anemia, known esophageal cancer Activity: Per Instructions section Non-emergency contact: Primary Care Provider and Oncologist Call non-emergency contact if: you have any medication questions and your symptoms worsen Follow-up/Referrals: Brigid Joseph PA-C [Primary Care Provider] - Diet: Other - See Diet Comment Diet Comment: Liquid diet, per thermostat mechanic recommendations Addtl Attending Provider Instructions: Follow-up with your primary care physician within 1 week. Follow-up with your oncologist and route sales associate, as previously scheduled. Follow recommendations from the thermostat mechanic to ensure enough caloric intake with liquid diet. Pending Studies at Discharge: No Stand-Alone Forms: My [facility] [employer], Smoking Cessation Medications and DC Order Discharge Orders: Discharge Order (Routine); Ordered 01/26/22 Ordered By: Shaquille Green/Other Patient Handouts: Cancer Tx Control Nausea Vomiting, Vomiting Diarrhea Diet Adult Admission Data Admit Date/Time: 01/25/22 17:12 Attending Provider: Shaquille Quesada Admit Provider: Brittny Sadler Primary Care Provider: Brigid Joseph Other Providers: Thomas Ruiz Jr ; Brittny Sadler Other Interventions: Discharge Summary Assessment (RN) Last Done: 01/26/22 13:47
== END 2022-01-26 16:35 | disposition home or self-care (01) | DRG 375 ==
LOC: ED 14:10 → SUATTDRO 17:12 → INTOOBSV 17:12 → EDINP 17:12 → 2W 21:19

== ENCOUNTER 2022-02-07 14:30 | Inpatient (IN) ==
[2022-02-07] MEDS ORDERED: ONDANSETRON INJ 2 MG/ML 2 ML VIAL IV STA ×2 (14:44→15:18)
[2022-02-07] MEDS ORDERED: SODIUM CHLORIDE 0.9% 1000ML 1,000 ML IV ONE (14:44)
--- NOTE | 2022-02-07 14:47 | ED Triage Note ---
Date of Service February 07, 2022 History of Present Illness This patient was briefly evaluated while in triage. An abbreviated physical exam was performed. This patient is a 51-year-old Male with past medical history of esophageal cancer who presents to the ED for evaluation of vomiting and inability to keep anything down. Patient has not yet started chemotherapy. He had an esophageal stent placed yesterday and has been unable to keep anything down since. Physical Exam VITALS: Vitals are noted on the nurse's note and reviewed by myself. Vital signs stable. GENERAL: This is a 51-year-old male, chronically ill-appearing. EYES: Pupils equal round and reactive to light and accommodation. HEART: Regular rate and rhythm without murmurs gallops or rubs. LUNGS: Clear to auscultation bilaterally without wheezes, rales or rhonchi. NEURO: Patient was alert and oriented to person place and time. Initial orders for labs and / or imaging were placed and patient was placed in the waiting area until a bed is available. Please see further documentation for the full ED course.
[2022-02-07 15:03] LABS: Basophils # (auto) 0.03 K/uL (0-0.2); Basophils % (auto) 0.2 %; Hematocrit (blood only) 30.7 % (40.1-51.0); Hemoglobin 9.7 g/dl (14.0-18.0); Immature Granulocytes # (auto) 0.19 K/uL (0.00-0.02); Immature Granulocytes % (auto) 1.1 %; Lymphocytes # (auto) 4.07 K/uL (1.2-3.4); Lymphocytes % (auto) 23.4 %; Mean Corpuscular Hemoglobin 24.3 pg (25.0-34.0); Mean Corpuscular Hgb Conc 31.6 g/dL (32.0-36.0); Mean Corpuscular Volume 76.8 fL (80.0-100.0); Mean Platelet Volume 10.4 fL (9.4-12.4); Monocytes # (auto) 0.83 K/uL (0.24-0.82); Monocytes % (auto) 4.8 %; Neutrophils % (auto) 70.5 %; Nucleated RBC # (auto) 0.02 K/uL (0-0); Nucleated RBC % (auto) 0.1 %; Platelet Count 341 K/uL (130-400); RDW Coefficient of Variation 14.7 % (11.5-14.5); RDW Standard Deviation 39.7 fL (36.4-46.3); White Blood Count 17.42 K/ul (4.8-10.8)
[2022-02-07] MEDS ORDERED: LACTATED RINGER'S 1,000 ML IV STA (15:14)
[2022-02-07] MEDS ORDERED: PROMETHAZINE 6.25 MG/50.25 ML BAG IV STA (15:14)
--- NOTE | 2022-02-07 15:18 | Emergency Department Note ---
Impression & Plan Vomiting, Anemia, Esophageal cancer, Leukocytosis, Elevated liver enzymes ED Provider Note NAME: JESSICA NUNEZ AGE: 51 SEX: M : 1970 ARRIVES VIA: Walk-In INFORMANT: [Patient] ED PROVIDER(S): [Elmer Castaneda MD] CHIEF COMPLAINT: Vomiting HISTORY OF PRESENT ILLNESS: The patient is a 51-year-old male with a recently diagnosed esophageal cancer. He had a procedure yesterday in [place] where an esophageal stent was placed. He states that last night and today, he has been vomiting. He cannot keep anything down. There has been some brown discoloration at times to the vomit. No diarrhea. He is not short of breath, there is no chest pain. He has not had fever. He states he does not really have any pain. He has sublingual Zofran to use at home for nausea but it is not helping. REVIEW OF SYSTEMS: See HPI for pertinent positives and negatives. A total of ten systems were reviewed and were otherwise negative. PMHx/PSHx: See Below SOCIAL HISTORY: See Below. PHYSICAL EXAM: GENERAL: Patient is in no acute distress. HEENT: No acute trauma, normocephalic atraumatic, mucous membranes moist, no nasal congestion, no scleral icterus. NECK: No stridor, no adenopathy, no meningismus, trachea is midline. LUNGS: Clear to auscultation bilaterally, no wheeze, no rhonchi, breath sounds equal. HEART: Without murmurs gallops or rubs, regular rate and rhythm. ABDOMEN: Soft, nontender, bowel sounds positive, no peritonitis. EXTREMITIES: No cyanosis or edema, full range of motion of all the joints without pain or difficulty, no signs for acute trauma. NEUROLOGIC: Oriented x 3, no acute motor or sensory deficits, no focal weakness. SKIN: No rash, no jaundice, no diaphoresis. Pale. DIFFERENTIAL DIAGNOSIS: Infection, dehydration, metabolic abnormality, hypo/hyperglycemia, electrolyte disturbance, anemia, hypoxia, cardiac sources, intracerebral event, bowel obstruction, esophageal obstruction, stent collapse, as well as other pathologies. EMERGENCY DEPARTMENT COURSE/PROCEDURES: ECG: Indication was vomiting. The ECG shows a normal sinus rhythm with a rate of 82. There is no ST elevation, no PVCs. There is some diffuse nonspecific ST change. The QTc is 472. Continuous Cardiac Monitoring: An order was placed for continuous cardiac monitoring. The monitor shows a rate of 102 with sinus tachycardia. MEDICAL DECISION MAKING: There is a moderate leukocytosis, this is consistent with infection. The patient is anemic but this appears to be baseline as of late. There is a normal platelet count. Potassium and sodium are both slightly low. No renal failure. Lactic acid level was not elevated making sepsis less likely. There was diffuse liver enzyme elevation, this was new. ECG showed a normal sinus rhythm, no is chemia. Cardiac enzyme testing x1 is not consistent with acute cardiac injury. Lipase was normal. COVID test was negative. Chest film did not show pneumonia or CHF. No concerning mediastinal widening. Chest CT showed his esophageal stent to be open. Abdominal and pelvis CT suggested a potential acute cholecystitis. Gallbladder ultrasound showed liver lesions consistent with metastasis, the gallbladder appeared unremarkable. On exam, the patient appeared pale, he did not have significant abdominal discomfort. He was not febrile. Patient received IV saline, 1 L. He received 1 L of lactated Ringer's. He received IV Zofran for nausea, a second dose of IV Zofran was given. He receiv ed IV potassium and IV Phenergan. He received IV Zosyn as antibiotic coverage. I did speak with GI, no emergent GI intervention required this evening. Hospitalization was suggested. Patient is aware of his findings, understands the reason for admission. At this point, the cause for the liver enzyme elevation is not completely clear. Acute cholecystitis was a concern and suggested by CT imaging however, the gallbladder was unremarkable by ultrasound. Liver lesions, likely metastatic lesions were noted on the US. The liver enzyme elevations certainly could be from the metastatic lesions themselves. Patient presents with vomiting, he will require a hospital stay, hydration, symptom control and further work-up. I did speak with case management, I spoke briefly with the on-call surgeon, the on-call hospitalist was consulted. 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 Beliefs That Will Affect Care: None marital status: Single Current Living Situation: Parent current occupational status: unemployed 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 Feels Safe at Home: Yes Diet Comment: Liquid diet during the past year weight has: decreased > 10 lbs Dental Care, Regularly: Yes Assistive Devices: Contacts and Glasses Allergies Allergies Allergy/AdvReac Type Severity Reaction Status Date / Time No Known Allergies Allergy Unknown Verified 02/07/22 17:42 Home Meds Home Medications Medication Instructions Recorded Confirmed carvedilol 12.5 mg tablet 12.5 mg PO QAM 02/01/22 02/07/22 ondansetron HCl 4 mg tablet 4 mg PO Q8H PRN Nausea 02/07/22 02/07/22 Results & Data (ED) Vital Signs Vital Signs - 24 hr 02/07/22 14:30 02/07/22 16:00 Temperature 36.1 C L Temperature Source Temporal Artery Scan Pulse Rate 102 H Pulse Rate [Left] 78 Respiratory Rate 20 20 Respiratory Effort / Characteristics Spontaneous Respiratory Depth Normal Blood Pressure 94/64 L Blood Pressure [Left Arm] 138/88 Blood Pressure Mean 74 Blood Pressure Mean [Left Arm] 104 Blood Pressure Position Sitting Blood Pressure Position [Left Arm] Lying Pulse Oximetry 96 97 Oxygen Delivery Method Room Air Room Air Sepsis Recent Fever Within 48 Hours No Sepsis New/Unexplained Change in Mental Status No Sepsis Action Taken by Nursing Physician Notified Home Medications Current Medication List: was personally reviewed by me Laboratory Data Attestation: I reviewed the patient's lab results. Result diagrams: 02/07/22 14:52 02/07/22 14:52 Lab Results 02/07/22 02/07/22 02/07/22 Range/Units 14:52 14:52 14:52 WBC 17.42 H (4.8-10.8) K/ul RBC 4.00 L (4.63-6.08) M/uL Hgb 9.7 L (14.0-18.0) g/dl Hct 30.7 L (40.1-51.0) % MCV 76.8 L (80.0-100.0) fL MCH 24.3 L (25.0-34.0) pg MCHC 31.6 L (32.0-36.0) g/dL RDW Std Deviation 39.7 (36.4-46.3) fL RDW Coeff of Kong 14.7 H (11.5-14.5) % Plt Count 341 (130-400) K/uL MPV 10.4 (9.4-12.4) fL Immature Gran % (Auto) 1.1 % Neut % (Auto) 70.5 % Lymph % (Auto) 23.4 % [place] % (Auto) 4.8 % Eos % (Auto) 0.0 % Baso % (Auto) 0.2 % Neut # (Auto) 12.30 H (1.4-6.5) K/uL Lymph # (Auto) 4.07 H (1.2-3.4) K/uL [place] # (Auto) 0.83 H (0.24-0.82) K/uL Eos # (Auto) 0.00 (0-0.50) K/uL Baso # (Auto) 0.03 (0-0.2) K/uL Immature Gran # (Auto) 0.19 H (0.00-0.02) K/uL Absolute Nucleated RBC 0.02 H (0-0) K/uL Nucleated RBC % (auto) 0.1 % Sodium 134 L (136-145) mmol/L Potassium 3.1 L (3.5-5.1) mmol/L Chloride 90 L (98-107) mmol/L Carbon Dioxide 32 (21-32) mmol/L Anion Gap 12 H (3-11) BUN 16 (6-23) mg/dl Creatinine 0.63 (0.6-1.4) mg/dl Est Cr Clr Drug Dosing 148.8 ml/min Est GFR ( Amer) 130.4 ml/min Est GFR (Non-Af Amer) 112.5 ml/min BUN/Creatinine Ratio 25.4 H (10-20) Glucose 152 H (70-99(Fasting)) mg/dl Calcium 8.9 (8.5-10.1) mg/dl Magnesium 1.8 (1.7-2.4) mg/dl Total Bilirubin 4.3 H (0.2-1.0) mg/dl AST 322 H (13-39) U/L ALT 755 H (7-52) U/L Alkaline Phosphatase 324 H (34-104) U/L Troponin I High Sens 10.3 (0-20) pg/ml Total Protein 6.0 (6.0-8.3) gm/dl Albumin 3.6 (3.4-5.0) gm/dl Globulin 2.4 L (2.5-4.0) gm/dl Albumin/Globulin Ratio 1.5 (0.9-2) Lipase 44 (11-82) U/L SARS-CoV-2, RNA, NAAT (NEGATIVE) 02/07/22 Range/Units 15:30 WBC (4.8-10.8) K/ul RBC (4.63-6.08) M/uL Hgb (14.0-18.0) g/dl Hct (40.1-51.0) % MCV (80.0-100.0) fL MCH (25.0-34.0) pg MCHC (32.0-36.0) g/dL RDW Std Deviation (36.4-46.3) fL RDW Coeff of Kong (11.5-14.5) % Plt Count (130-400) K/uL MPV (9.4-12.4) fL Immature Gran % (Auto) % Neut % (Auto) % Lymph % (Auto) % [place] % (Auto) % Eos % (Auto) % Baso % (Auto) % Neut # (Auto) (1.4-6.5) K/uL Lymph # (Auto) (1.2-3.4) K/uL [place] # (Auto) (0.24-0.82) K/uL Eos # (Auto) (0-0.50) K/uL Baso # (Auto) (0-0.2) K/uL Immature Gran # (Auto) (0.00-0.02) K/uL Absolute Nucleated RBC (0-0) K/uL Nucleated RBC % (auto) % Sodium (136-145) mmol/L Potassium (3.5-5.1) mmol/L Chloride (98-107) mmol/L Carbon Dioxide (21-32) mmol/L Anion Gap (3-11) BUN (6-23) mg/dl Creatinine (0.6-1.4) mg/dl Est Cr Clr Drug Dosing ml/min Est GFR ( Amer) ml/min Est GFR (Non-Af Amer) ml/min BUN/Creatinine Ratio (10-20) Glucose (70-99(Fasting)) mg/dl Calcium (8.5-10.1) mg/dl Magnesium (1.7-2.4) mg/dl Total Bilirubin (0.2-1.0) mg/dl AST (13-39) U/L ALT (7-52) U/L Alkaline Phosphatase (34-104) U/L Troponin I High Sens (0-20) pg/ml Total Protein (6.0-8.3) gm/dl Albumin (3.4-5.0) gm/dl Globulin (2.5-4.0) gm/dl Albumin/Globulin Ratio (0.9-2) Lipase (11-82) U/L SARS-CoV-2, RNA, NAAT NEGATIVE (NEGATIVE) Administered Medications Potassium Chloride/Sodium Chloride (Normal Saline W/20 Meq Kcl) 20 meq in 1,000 mls @ 80 mls/hr IV .[id number] [facility]; Protocol Stop: 02/08/22 08:44 Last Admin: 02/07/22 21:35 Dose: 80 mls/hr Documented By: BENTON Discontinued Medications Heparin Sodium (Porcine) (Heparin Sod 5,000 Unit/0.5 Ml Vial) 5,000 units SQ ONE ONE Stop: 02/07/22 22:01 Last Admin: 02/07/22 21:36 Dose: 5,000 units Documented By: BENTON Sodium Chloride (Nss 1000ml) 1,000 mls @ 999 mls/hr IV .Q1H1M ONE Stop: 02/07/22 15:44 Last Infusion: 02/07/22 16:26 Dose: 0 mls/hr Documented By: Admin: 02/07/22 15:08 Dose: 999 mls/hr Documented By: RACHEL Promethazine HCl (Phenergan) 6.25 mg in 50.25 mls @ 201 mls/hr IV NOW STA Stop: 02/07/22 15:28 Last Infusion: 02/07/22 16:48 Dose: 0 mls/hr Documented By: Admin: 02/07/22 16:25 Dose: 201 mls/hr Documented By: RACHEL Lactated Ringer's (Lr) 1,000 mls @ 999 mls/hr IV .Q1H1M STA Stop: 02/07/22 16:14 Last Infusion: 02/07/22 17:28 Dose: 0 mls/hr Documented By: Admin: 02/07/22 16:25 Dose: 999 mls/hr Documented By: RACHEL Potassium Chloride (K [place] / Wtr) 10 meq in 100 mls @ 100 mls/hr IV ONE ONE; Protocol Stop: 02/07/22 16:37 Last Infusion: 02/07/22 17:28 Dose: 0 mls/hr Documented By: Admin: 02/07/22 16:26 Dose: 100 mls/hr Documented By: RACHEL Piperacillin Sod/Tazobactam Sod (Zosyn) 4.5 gm in 120 mls @ 240 mls/hr IV NOW ONE Stop: 02/07/22 17:14 Last Infusion: 02/07/22 19:04 Dose: 0 mls/hr Documented By: Admin: 02/07/22 17:53 Dose: 240 mls/hr Documented By: RACHEL Potassium Chloride (K [place] / Wtr) 10 meq in 100 mls @ 100 mls/hr IV Q1H LONG; Protocol Stop: 02/07/22 21:29 Last Admin: 02/07/22 22:43 Dose: 100 mls/hr Documented By: Infusion: 02/07/22 22:35 Dose: 100 mls/hr Documented By: Admin: 02/07/22 21:35 Dose: 100 mls/hr Documented By: BENTON Ondansetron HCl (Ondansetron Inj 2 Mg/Ml 2 Ml Vial) 4 mg IV NOW STA Stop: 02/07/22 14:45 Last Admin: 02/07/22 15:08 Dose: 4 mg Documented By: RACHEL Ondansetron HCl (Ondansetron Inj 2 Mg/Ml 2 Ml Vial) 4 mg IV NOW STA Stop: 02/07/22 15:19 Last Admin: 02/07/22 15:36 Dose: Not Given Documented By: RD Imaging Data Radiologist's Impression: Chest X-Ray 02/07/22 14:43 XR chest 1V portable CLINICAL HISTORY: Vomiting, weakness TECHNIQUE: Single frontal radiograph of the chest was obtained. Comparison: Comparison is made to chest radiograph 01/26/2022 FINDINGS: No lines and tubes are seen. The cardiomediastinal silhouette is normal. Linear densities seen in the right lower lung. No evidence of pleural effusion or pneumothorax. No pneumoperitoneum is seen. IMPRESSION: No acute chest disease. ACT 112: Negative or not required by law. Electronically signed by: Ernesto Smith M.D. 02/07/2022 3:[address] 02/07/22 15:18 CT chest diagnostic wo con CLINICAL HISTORY: esoph stent placed TECHNIQUE: Multidetector row helical CT of the chest was performed. Coronal and sagittal reformations were obtained. Automated dose lowering techniques and/or adjustment according to patient size were utilized for this exam. Comparison: Comparison is made to chest radiograph 02/07/2022 FINDINGS: Lungs and pleura: Atelectasis versus scarring is seen in the dependent portions of the lungs. Heart and pericardium: Heart size is normal. No pericardial effusion. Vessels: Unremarkable. Mediastinum and chi: The esophagus is distended with enteric contrast. An esophageal stent is seen with passage of oral contrast into the stomach. Chest wall and lower neck: Unremarkable. Abdomen: For findings below the diaphragm, please refer to CT of the abdomen dated the same. Contrast is seen to pass normally into the stomach. Thickening of the distal esophagus and gastric wall is again seen. Bones: Unremarkable. IMPRESSION: No evidence of metastatic disease above the thorax. There is satisfactory passage of contrast through a esophageal stent. ACT 112: Negative or not required by law. Electronically signed by: Ernesto Smith M.D. 02/07/2022 4:48 PM Abdomen/Pelvis CT 02/07/22 15:37 CT abd pelvis wo con CLINICAL HISTORY: poss obstruction TECHNIQUE: Helical axial images of the abdomen and pelvis were obtained. Automated dose lowering techniques and/or adjustment according to patient size were utilized for this exam. This exam was performed without intravenous contrast. CT DOSE: 1041.88 mGy.cm COMPARISON: Comparison is made to CT abdomen pelvis 01/02/2022 FINDINGS: Lower chest: No acute abnormality Liver: Unremarkable. No focal lesions are seen. Gallbladder and biliary tree: The gallbladder contents are hyperdense which may represent vicarious excretion of contrast. There is prominence of the gallbladder wall measuring approximately 3.5 mm. No intra- or extrahepatic biliary ductal dilation. Pancreas: Unremarkable, no focal lesions. Spleen: Unremarkable. Adrenals: Unremarkable. Kidneys and ureters: Perinephric stranding is noted bilaterally. Bladder: Unremarkable. Reproductive organs: Prostatic calcifications are seen which may represent prior hemorrhage or granulomatous disease. Bowel: Diverticulosis is seen without evidence of diverticulitis. The appendix is normal. Contrast material is noted to pass freely through an esophageal stent. The gastric wall is thickened. Lymph nodes Retroperitoneal: Numerous enlarged lymph nodes are seen measuring up to 17 mm in short axis. Jolene hepatis nodes are also seen measuring up to 11 mm. There is a retroperitoneal node measuring 31 x 37 mm, stable to minimally enlarged from prior exam, which may also represent an enlarged retroperitoneal node. Pelvic: Unremarkable. Mesenteric: Subcentimeter lymph nodes are noted. Peritoneum: Fat stranding is seen in the upper abdomen particularly around the stomach. Vessels: Unremarkable. Abdominal wall: Unremarkable. Bones: Unremarkable. IMPRESSION: 1. Prominence of the gallbladder wall which is partially visualized with intraluminal vicarious contrast. Clinical correlation for acute cholecystitis is recommended. 2. Interval placement of esophageal stent with satisfactory passage of contrast into the stomach. Thickening of the wall of the esophagus and proximal stomach is again seen. Numerous retroperitoneal lymph nodes are seen, enlarged from prior exam, concerning for metastatic disease. Subcentimeter mesenteric nodes are also seen. ACT 112: Negative or not required by law. Electronically signed by: Ernesto Smith M.D. 02/07/2022 4:41 PM Gallbladder Ultrasound 02/07/22 16:46 ABDOMINAL ULTRASOUND, RIGHT UPPER QUADRANT HISTORY: Elevated LFTs.. COMPARISON: Abdomen and pelvis CT 02/07/2022. FINDINGS: Pancreas: The pancreatic head and tail are obscured by overlying bowel gas. The remaining portions of the pancreas are within normal limits. Liver: There are scattered hypoechoic lesions seen within the liver with the 2 largest within the right hepatic lobe measuring 4.5 and 2.7 cm. The main portal vein is patent and demonstrate normal direction of flow. There is mild periportal edema again noted. There is mild intrahepatic bile duct dilatation. Gallbladder: No gallbladder wall thickening. No gallstones. CBD: 5 mm. Right kidney: No hydronephrosis. IMPRESSION: 1. Multiple scattered hypoechoic lesions within the liver consistent with metastatic disease. Dominant lesion measures 4.5 cm. 2. Normal gallbladder. No gallstones. ACT 112: Negative or not required by law. Electronically signed by: Toney Rodney M.D. 02/07/2022 7:12 PM Discharge Plan Visit Data Chief Complaint: Vomiting Stated Complaint: VOMITING,DEHYDRATION ED Provider: Elmer Castaneda Discharge Problem: Vomiting, Anemia, Esophageal cancer, Leukocytosis, Elevated liver enzymes Patient Disposition: Admitted As Inpatient Condition: Fair Discharge Instructions Interventions: ED Discharge Assessment Last Done: 02/07/22 19:28
--- NOTE | 2022-02-07 15:32 | XRay Report ---
XR chest 1V portable CLINICAL HISTORY: Vomiting, weakness TECHNIQUE: Single frontal radiograph of the chest was obtained. Comparison: Comparison is made to chest radiograph 01/26/2022 FINDINGS: No lines and tubes are seen. The cardiomediastinal silhouette is normal. Linear densities seen in the right lower lung. No evidence of pleural effusion or pneumothorax. No pneumoperitoneum is seen. IMPRESSION: No acute chest disease. ACT 112: Negative or not required by law. Electronically signed by: Ernesto Smith M.D. 02/07/2022 3:31 PM
[2022-02-07 15:34] LABS: BUN Creatinine Ratio 25.4 (10-20); Calcium 8.9 mg/dl (8.5-10.1); Creatinine Clr Calc Pharmacy 148.8 ml/min; Est GFR (African American) 130.4 ml/min; Est GFR (Non-African American) 112.5 ml/min; Potassium 3.1 mmol/L (3.5-5.1)
[2022-02-07 15:36] LABS: Albumin Level 3.6 gm/dl (3.4-5.0); Bilirubin,Total 4.3 mg/dl (0.2-1.0); Magnesium 1.8 mg/dl (1.7-2.4)
[2022-02-07] MEDS ORDERED: POTASSIUM CHLORIDE / WTR 10 MEQ/100 ML PLCT IV ONE (15:38)
[2022-02-07 15:49] LABS: Albumin Globulin Ratio 1.5 (0.9-2); Globulin 2.4 gm/dl (2.5-4.0)
--- NOTE | 2022-02-07 16:43 | CT Scan Report ---
CT abd pelvis wo con CLINICAL HISTORY: poss obstruction TECHNIQUE: Helical axial images of the abdomen and pelvis were obtained. Automated dose lowering tech niques and/or adjustment according to patient size were utilized for this exam. This exam was perfor med without intravenous contrast. CT DOSE: 1041.88 mGy.cm COMPARISON: Comparison is made to CT abdomen pelvis 01/02/2022 FINDINGS: Lower chest: No acute abnormality Liver: Unremarkable. No focal lesions are seen. Gallbladder and biliary tree: The gallbladder contents are hyperdense which may represent vicarious e xcretion of contrast. There is prominence of the gallbladder wall measuring approximately 3.5 mm. No intra- or extrahepatic biliary ductal dilation. Pancreas: Unremarkable, no focal lesions. Spleen: Unremarkable. Adrenals: Unremarkable. Kidneys and ureters: Perinephric stranding is noted bilaterally. Bladder: Unremarkable. Reproductive organs: Prostatic calcifications are seen which may represent prior hemorrhage or granul omatous disease. Bowel: Diverticulosis is seen without evidence of diverticulitis. The appendix is normal. Contrast ma terial is noted to pass freely through an esophageal stent. The gastric wall is thickened. Lymph nodes Retroperitoneal: Numerous enlarged lymph nodes are seen measuring up to 17 mm in short axis. Jolene he patis nodes are also seen measuring up to 11 mm. There is a retroperitoneal node measuring 31 x 37 mm , stable to minimally enlarged from prior exam, which may also represent an enlarged retroperitoneal node. Pelvic: Unremarkable. Mesenteric: Subcentimeter lymph nodes are noted. Peritoneum: Fat stranding is seen in the upper abdomen particularly around the stomach. Vessels: Unremarkable. Abdominal wall: Unremarkable. Bones: Unremarkable. IMPRESSION: 1. Prominence of the gallbladder wall which is partially visualized with intraluminal vicarious cont rast. Clinical correlation for acute cholecystitis is recommended. 2. Interval placement of esophageal stent with satisfactory passage of contrast into the stomach. Th ickening of the wall of the esophagus and proximal stomach is again seen. Numerous retroperitoneal ly mph nodes are seen, enlarged from prior exam, concerning for metastatic disease. Subcentimeter mesent la nodes are also seen. ACT 112: Negative or not required by law. Electronically signed by: Ernesto Smith M.D. 02/07/2022 4:41 PM
[2022-02-07] MEDS ORDERED: PIPERACILLIN/TAZOBACTAM 4.5 GM/120 ML BAG IV ONE (16:45)
--- NOTE | 2022-02-07 16:50 | CT Scan Report ---
CT chest diagnostic wo con CLINICAL HISTORY: esoph stent placed TECHNIQUE: Multidetector row helical CT of the chest was performed. Coronal and sagittal reformations were obtained. Automated dose lowering techniques and/or adjustment according to patient size were u tilized for this exam. Comparison: Comparison is made to chest radiograph 02/07/2022 FINDINGS: Lungs and pleura: Atelectasis versus scarring is seen in the dependent portions of the lungs. Heart and pericardium: Heart size is normal. No pericardial effusion. Vessels: Unremarkable. Mediastinum and chi: The esophagus is distended with enteric contrast. An esophageal stent is seen w ith passage of oral contrast into the stomach. Chest wall and lower neck: Unremarkable. Abdomen: For findings below the diaphragm, please refer to CT of the abdomen dated the same. Contrast is seen to pass normally into the stomach. Thickening of the distal esophagus and gastric wall is ag ain seen. Bones: Unremarkable. IMPRESSION: No evidence of metastatic disease above the thorax. There is satisfactory passage of contrast through a esophageal stent. ACT 112: Negative or not required by law. Electronically signed by: Ernesto Smith M.D. 02/07/2022 4:48 PM
--- NOTE | 2022-02-07 17:55 | History & Physical Report ---
Date of Service February 07, 2022 Assessment & Plan (1) Nausea & vomiting: (2) Esophageal cancer: (3) Hypokalemia: (4) Transaminitis: (5) Leukocytosis: (6) HTN (hypertension): (7) T2DM (type 2 diabetes mellitus): Plan This is a 51-year-old male who has significant past medical history of HTN, T2DM, incomplete right bundle branch block, GERD, history of postop streptococcal glomerulonephritis, newly diagnosed esophageal adenocarcinoma who presents to ED after undergoing EGD and stent placement of stenotic esophagus secondary to mass on 02/06/2022 due to persistent nausea and vomiting. Nausea and vomiting Esophageal adenocarcinoma status post stent placement via EGD on 02/06/2022, currently undergoing staging with METS to lymph nodes and now liver Transaminitis Leukocytosis Patient underwent EGD with stent placement yesterday. Since procedure has been unable to tolerate anything orally. Has new onset transaminitis with hyperbilirubinemia of 4.3, AST 322, ALT 75 and alk phos 324 Also has elevated WBC at 17.42k CT abdomen pelvis concerning for possible acute cholecystitis GB US: Multiple scattered hypoechoic lesions within the liver consistent with metastatic disease. Dominant lesion measures 4.5 cm. Consult general surgery and gastroenterology Patient with minimal abdominal tenderness, +jaundice Continue IV Zosyn empirically Follow LFTs Will Obtain MRCP NPO after midnight gentle IVF with KCL pt to be on omeprazole 40 QD, but didn't start yet Hypokalemia Due to vomiting, poor intake Replace Microcytic anemia Likely in setting of cancer, hemoglobin 9.7 and 30.7 Obtain anemia panel in a.m. EKG change lateral depressions, trop negative, denies chest pain will repeat ekg in a.m. obtain echo repeat trop x1 HTN bp stable continue coreg T2DM A1c 7.1 on 09/2021 Monitor blood sugars, given poor intake will not place on coverage A1c in a.m. DVT ppx: SCDS/TEDS, will give heparin SQ x 1 dose tonight, re eval in a.m. to determine if procedure needed, if not re start chemical prophylaxis DNR/DNI Dispo: med/surg PCP: Brigid Hu Pt was seen and examined in collaboration with Dr. Solares, please see addendum History of Present Illness Chief Complaint: N/V s/p EGD with stent placement on 02/06. Primary Care Provider: Brigid Joseph PA-C This is a 51-year-old male who has significant past medical history of HTN, T2DM, incomplete right bundle branch block, GERD, history of postop streptococcal glomerulonephritis, newly diagnosed esophageal adenocarcinoma who presents to ED after undergoing EGD and stent placement of stenotic esophagus secondary to mass on 02/06/2022 due to persistent nausea and vomiting. Of significance patient was recently hospitalized on 01/25-01/26 due to inability to tolerate oral intake as well as heme positive stool.He was seen and evaluated by GI and felt that EGD not warranted at the time. Hemoglobin remained stable and he was treated with IV PPI and Pepcid. He was discharged home with gastroenterology follow-up as well as a PET scan scheduled for 02/11 for further staging of cancer. Yesterday he underwent EGD by Dr. Dobbs and found a malignant appearing esophageal stenosis with stent placed. He was discharged to home with a liquid diet for 2 days and omeprazole 40 mg once daily. WHen he went home he continued to have nausea and vomiting; Therefore, he presented to ED. HE generally feels weak. HE is not sure if he had any blood in vomit. HE denies any f/c/s, dizziness, lightheaded, chest pain, sob, cough, uri sx, abd pain, diarrhea, increased urg/freq with urination, melena, hematochezia. In ED patient remained hemodynamically stable. He was found to have elevated bili 4.3, ast 322, alt 755 and alp phose 324. He also was found to have Hypokalemia 3.1, sodium 134, glucose 152, WC 17.42k, H&H 9.7 and 30.7, platelet 341. CT abdomen pelvis revealed prominence of gallbladder wall which was partially visualized. Clinical correlation for acute cholecystitis is recommended. Interval placement of esophageal stent with satisfactory passage of contrast in the stomach. Thickening of the wall the esophagus and proximal stomach is again seen with numerous retroperitoneal lymph nodes enlarged from prior exam concerning for metastatic disease. In ED he received IV antiemetics, IV fluid, IV Zosyn and IV potassium. He denies any smoking, tobacco use, APAP use. +FH of Ca, great grandfather stomach ca, great grandmother had breast cancer. Allergies Allergy/AdvReac Type Severity Reaction Status Date / Time No Known Allergies Allergy Unknown Verified 02/07/22 17:42 Home Medications Medication Instructions Recorded Confirmed Type carvedilol 12.5 mg tablet 12.5 mg PO QAM 02/01/22 02/07/22 History ondansetron HCl 4 mg tablet 4 mg PO Q8H PRN Nausea 02/07/22 02/07/22 History Past Med/Surg History Medical History (Updated 02/07/22 @ 18:00 by Berkley Lopez PA-C) Adenocarcinoma Esophageal mass Esophageal neoplasm GIB (gastrointestinal bleeding) HTN (hypertension) Hypertension Hypokalemia T2DM (type 2 diabetes mellitus) Surgical History Hx of esophagogastroduodenoscopy Family History Father Cancer Lung Grandmother (Paternal) Cancer Breast Grandfather (Paternal) Cancer Stomach Social History Smoking Status: Never smoker Second Hand Exposure: No; Hx Alcohol Use: No Hx Substance Use: No Preferred Language: Irish Communication Ability: Effective Director Of Collections And Archives Required: No Beliefs That Will Affect Care: None marital status: Single Current Living Situation: Parent current occupational status: unemployed 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 Solares addendum for physical exam findings. Results & Data Results & Data ([facility]) Vital Signs (Past 12 Hours) Vital Signs Temp Pulse Pulse Resp BP BP Pulse Ox 02/07/22 16:00 78 20 138/88 97 02/07/22 14:30 36.1 C L 102 H 20 94/64 L 96 O2 Del Method 02/07/22 16:00 Room Air 02/07/22 14:30 Room Air Diagnostic Findings Chest X-Ray 02/07/22 14:43 XR chest 1V portable CLINICAL HISTORY: Vomiting, weakness TECHNIQUE: Single frontal radiograph of the chest was obtained. Comparison: Comparison is made to chest radiograph 01/26/2022 FINDINGS: No lines and tubes are seen. The cardiomediastinal silhouette is normal. Linear densities seen in the right lower lung. No evidence of pleural effusion or pneumothorax. No pneumoperitoneum is seen. IMPRESSION: No acute chest disease. ACT 112: Negative or not required by law. Electronically signed by: Ernesto Smith M.D. 02/07/2022 3:[address] 02/07/22 15:18 CT chest diagnostic wo con CLINICAL HISTORY: esoph stent placed TECHNIQUE: Multidetector row helical CT of the chest was performed. Coronal and sagittal reformations were obtained. Automated dose lowering techniques and/or adjustment according to patient size were utilized for this exam. Comparison: Comparison is made to chest radiograph 02/07/2022 FINDINGS: Lungs and pleura: Atelectasis versus scarring is seen in the dependent portions of the lungs. Heart and pericardium: Heart size is normal. No pericardial effusion. Vessels: Unremarkable. Mediastinum and chi: The esophagus is distended with enteric contrast. An esophageal stent is seen with passage of oral contrast into the stomach. Chest wall and lower neck: Unremarkable. Abdomen: For findings below the diaphragm, please refer to CT of the abdomen dated the same. Contrast is seen to pass normally into the stomach. Thickening of the distal esophagus and gastric wall is again seen. Bones: Unremarkable. IMPRESSION: No evidence of metastatic disease above the thorax. There is satisfactory passage of contrast through a esophageal stent. ACT 112: Negative or not required by law. Electronically signed by: Ernesto Smith M.D. 02/07/2022 4:48 PM Abdomen/Pelvis CT 02/07/22 15:37 CT abd pelvis wo con CLINICAL HISTORY: poss obstruction TECHNIQUE: Helical axial images of the abdomen and pelvis were obtained. Automated dose lowering techniques and/or adjustment according to patient size were utilized for this exam. This exam was performed without intravenous contrast. CT DOSE: 1041.88 mGy.cm COMPARISON: Comparison is made to CT abdomen pelvis 01/02/2022 FINDINGS: Lower chest: No acute abnormality Liver: Unremarkable. No focal lesions are seen. Gallbladder and biliary tree: The gallbladder contents are hyperdense which may represent vicarious excretion of contrast. There is prominence of the gallbladder wall measuring approximately 3.5 mm. No intra- or extrahepatic biliary ductal dilation. Pancreas: Unremarkable, no focal lesions. Spleen: Unremarkable. Adrenals: Unremarkable. Kidneys and ureters: Perinephric stranding is noted bilaterally. Bladder: Unremarkable. Reproductive organs: Prostatic calcifications are seen which may represent prior hemorrhage or granulomatous disease. Bowel: Diverticulosis is seen without evidence of diverticulitis. The appendix is normal. Contrast material is noted to pass freely through an esophageal stent. The gastric wall is thickened. Lymph nodes Retroperitoneal: Numerous enlarged lymph nodes are seen measuring up to 17 mm in short axis. Jolene hepatis nodes are also seen measuring up to 11 mm. There is a retroperitoneal node measuring 31 x 37 mm, stable to minimally enlarged from prior exam, which may also represent an enlarged retroperitoneal node. Pelvic: Unremarkable. Mesenteric: Subcentimeter lymph nodes are noted. Peritoneum: Fat stranding is seen in the upper abdomen particularly around the stomach. Vessels: Unremarkable. Abdominal wall: Unremarkable. Bones: Unremarkable. IMPRESSION: 1. Prominence of the gallbladder wall which is partially visualized with intraluminal vicarious contrast. Clinical correlation for acute cholecystitis is recommended. 2. Interval placement of esophageal stent with satisfactory passage of contrast into the stomach. Thickening of the wall of the esophagus and proximal stomach is again seen. Numerous retroperitoneal lymph nodes are seen, enlarged from prior exam, concerning for metastatic disease. Subcentimeter mesenteric nodes are also seen. ACT 112: Negative or not required by law. Electronically signed by: Ernesto Smiht M.D. 02/07/2022 4:41 PM Medications Administered Medication List Discontinued Medications Sodium Chloride (Nss 1000ml) 1,000 mls @ 999 mls/hr IV .Q1H1M ONE Stop: 02/07/22 15:44 Last Infusion: 02/07/22 16:26 Dose: 0 mls/hr Documented By: Admin: 02/07/22 15:08 Dose: 999 mls/hr Documented By: RACHEL Promethazine HCl (Phenergan) 6.25 mg in 50.25 mls @ 201 mls/hr IV NOW STA Stop: 02/07/22 15:28 Last Infusion: 02/07/22 16:48 Dose: 0 mls/hr Documented By: Admin: 02/07/22 16:25 Dose: 201 mls/hr Documented By: RACHEL Lactated Ringer's (Lr) 1,000 mls @ 999 mls/hr IV .Q1H1M STA Stop: 02/07/22 16:14 Last Infusion: 02/07/22 17:28 Dose: 0 mls/hr Documented By: Admin: 02/07/22 16:25 Dose: 999 mls/hr Documented By: RACHEL Potassium Chloride (K [place] / Wtr) 10 meq in 100 mls @ 100 mls/hr IV ONE ONE; Protocol Stop: 02/07/22 16:37 Last Infusion: 02/07/22 17:28 Dose: 0 mls/hr Documented By: Admin: 02/07/22 16:26 Dose: 100 mls/hr Documented By: RACHEL Ondansetron HCl (Ondansetron Inj 2 Mg/Ml 2 Ml Vial) 4 mg IV NOW STA Stop: 02/07/22 14:45 Last Admin: 02/07/22 15:08 Dose: 4 mg Documented By: RACHEL Ondansetron HCl (Ondansetron Inj 2 Mg/Ml 2 Ml Vial) 4 mg IV NOW STA Stop: 02/07/22 15:19 Last Admin: 02/07/22 15:36 Dose: Not Given Documented By: RACHEL ECG Rate (beats per minute): 82 Rhythm: normal sinus Additional Comments: ST segment depressed laterally qtc 472ms COVID-19 Results Results COVID-19 Adm Lab Results: RBC 4.00 M/uL (4.63-6.08) L 02/07/22 WBC 17.42 K/ul (4.8-10.8) H 02/07/22 Hgb 9.7 g/dl (14.0-18.0) L 02/07/22 Hct 30.7 % (40.1-51.0) L 02/07/22 Plt Count 341 K/uL (130-400) 02/07/22 Neutrophils (%) (Auto) 70.5 % 02/07/22 Lymphocytes (%) (Auto) 23.4 % 02/07/22 Monocytes # (Auto) 0.83 K/uL (0.24-0.82) H 02/07/22 Eosinophils # (Auto) 0.00 K/uL (0-0.50) 02/07/22 Immature Granulocyte % (Auto) 1.1 % 02/07/22 Neutrophils # (Auto) 12.30 K/uL (1.4-6.5) H 02/07/22 Lymphocytes # (Auto) 4.07 K/uL (1.2-3.4) H 02/07/22 Monocytes # (Auto) 0.83 K/uL (0.24-0.82) H 02/07/22 Eosinophils # (Auto) 0.00 K/uL (0-0.50) 02/07/22 Basophils # (Auto) 0.03 K/uL (0-0.2) 02/07/22 Immature Granulocyte # (Auto) 0.19 K/uL (0.00-0.02) H 02/07 Na 134 mmol/L (136-145) L 02/07/22 K 3.1 mmol/L (3.5-5.1) L 02/07/22 Cl 90 mmol/L (98-107) L 02/07/22 CO2 32 mmol/L (21-32) 02/07/22 Anion Gap 12 (3-11) H 02/07/22 BUN 16 mg/dl (6-23) 02/07/22 Creatinine 0.63 mg/dl (0.6-1.4) 02/07/22 BUN/Creatinine Ratio 25.4 (10-20) H 02/07/22 Glucose Level 152 mg/dl (70-99(Fasting)) H 02/07/22 Ca 8.9 mg/dl (8.5-10.1) 02/07/22 Total Bilirubin 4.3 mg/dl (0.2-1.0) H 02/07/22 AST/SGOT 322 U/L (13-39) H 02/07/22 ALT/SGPT 755 U/L (7-52) H 02/07/22 Alkaline Phosphatase 324 U/L (34-104) H 02/07/22 Total Protein 6.0 gm/dl (6.0-8.3) 02/07/22 Albumin 3.6 gm/dl (3.4-5.0) 02/07/22 Globulin 2.4 gm/dl (2.5-4.0) L 02/07/22 Albumin/Globulin Ratio 1.5 (0.9-2) 02/07/22 SARS-CoV-2, RNA, NAAT NEGATIVE (NEGATIVE) 02/07/[address] 02/07/22 Chest X-Ray 02/07/22 Code Status & VTE Plan Code Status DNR/DNI VTE Prophylaxis Plan VTE Prophylaxis will be ordered: Yes Supervising Physician Co-Signing Physician Notes Patient is a 51-year-old male with history of hypertension, diabetes mellitus, recently diagnosed metastatic esophageal adenocarcinoma and other medical problems who recently underwent EGD and stent placement for stenotic esophagus due to mass presents with history of persistent nausea, vomiting and inability to tolerate oral fluid intake. He was scheduled to have a PET scan and follow- up with oncology for further management. Patient denies any chest pain, shortness of breath, fever, chills, abdominal pain, odynophagia. Please review HPI for complete details of presentation. Blood work showed WBC 17.4, hemoglobin 9.7, hematocrit 30.7, platelet count 341, sodium 134, potassium 3.1, chloride 90, bicarbonate 32, BUN 16, creatinine 0.63, glucose 152, lactate 1.4, total bilirubin 4.3, AST 322, ALT 755, alk phos 324. CT abdomen showed gallbladder wall prominence, cannot rule out acute cholecystitis. Esophageal stent with satisfactory passage of contrast into the stomach. Thickening of the wall of the esophagus and proximal stomach noted. Numerous retroperitoneal lymph nodes were seen and enlarged from prior imaging concerning for metastatic disease. Gallbladder ultrasound showed multiple scattered hypoechoic lesions within the liver consistent with metastatic disease. Normal gallbladder with no gallstones noted. Blood cultures pending. EKG showed normal sinus rhythm, nonspecific ST changes, QTC 472. Physical Exam: Vitals signs as noted above General Appearance:Moderately built and nourished, no apparent distress Head: normocephalic, Atraumatic Eyes: normal inspection, EOMI, +Icteric Neck: supple, Trachea midline Respiratory/Chest: Normal breath sounds, CTA, No accessory muscle use Cardiovascular: S1, S2, No murmur Abdomen/GI:Soft, Non tender, Bowel sounds present, no guarding or rigidity Extremities/Musculoskeletal:normal inspection, no edema Neurologic/Psych:AAOX3, grossly no focal neurological deficits Skin: normal color, warm,+ jaundice Intractable nausea, vomiting Metastatic esophageal adenocarcinoma Transaminitis Hypokalemia Abnormal EKG Will empirically start on IV antibiotics Obtain MRCP Antiemetics Monitor LFTs Avoid hepatotoxic agents GI, surgery consulted Replace electrolytes as needed Work-up to rule out ACS, although less andrea I personally reviewed the record. Patient is interviewed and examined at bedside. Patient's care is coordinated with Berkley Lopez PA-C. Please refer to the documentation above for details of patient's presentation and for discussion of other issues.
--- NOTE | 2022-02-07 19:14 | Ultrasound Report ---
ABDOMINAL ULTRASOUND, RIGHT UPPER QUADRANT HISTORY: Elevated LFTs.. COMPARISON: Abdomen and pelvis CT 02/07/2022. FINDINGS: Pancreas: The pancreatic head and tail are obscured by overlying bowel gas. The remaining portions of the pancreas are within normal limits. Liver: There are scattered hypoechoic lesions seen within the liver with the 2 largest within the rig ht hepatic lobe measuring 4.5 and 2.7 cm. The main portal vein is patent and demonstrate normal direc tion of flow. There is mild periportal edema again noted. There is mild intrahepatic bile duct dilata tion. Gallbladder: No gallbladder wall thickening. No gallstones. CBD: 5 mm. Right kidney: No hydronephrosis. IMPRESSION: 1. Multiple scattered hypoechoic lesions within the liver consistent with metastatic disease. Dominan t lesion measures 4.5 cm. 2. Normal gallbladder. No gallstones. ACT 112: Negative or not required by law. Electronically signed by: Toney Rodney M.D. 02/07/2022 7:12 PM
[2022-02-07] MEDS ORDERED: ALUMINUM/MAGNESIUM SUSP 30 ML UDC PO PRN (20:04)
[2022-02-07] MEDS ORDERED: CARBOHYDRATES FOR HYPOGLYCEMIA PO PRN (20:04)
[2022-02-07] MEDS ORDERED: PROMETHAZINE HCL 12.5 MG in SODIUM CHLORIDE 0.9% 50 ML IV PRN (20:04)
[2022-02-07] MEDS ORDERED: ACETAMINOPHEN 325 MG TAB PO PRN (20:04)
[2022-02-07] MEDS ORDERED: GLUCAGON FOR INJ 1 MG VIAL SQ PRN (20:04)
[2022-02-07] MEDS ORDERED: DEXTROSE 50% 50 ML SYRINGE IV PRN (20:04)
[2022-02-07] MEDS ORDERED: POLYETHYLENE (MIRALAX) 17 GM PACK PO PRN (20:04)
[2022-02-07] MEDS ORDERED: GLUCOSE 40% GEL 15 GM TUBE PO PRN (20:04)
[2022-02-07] MEDS ORDERED: GLUCOSE 10 TAB/TUBE PO PRN (20:04)
[2022-02-07] MEDS ORDERED: NSS + 20MEQ KCL 20 MEQ/1,000 ML BAG IV SCH (20:15)
[2022-02-07] MEDS: POTASSIUM CHLORIDE / WTR 10 MEQ/100 ML PLCT IV SCH ×2 (21:35→22:43)
--- NOTE | 2022-02-07 21:40 | Surgery Consultation ---
Date of Consultation February 07, 2022 Assessment & Plan (1) Nausea & vomiting: pt is a 51 year-old male who was admitted to hospital for nausea and vomiting after esophageal stent placed for esophageal cancer with metastatic disease. IMP: nausea and vomiting, Plan, base on U/s study- no gallstone, no gallbladder wall thickening, no abdominal pain, no surgery indication for cholecystectomy, consult GI and oncologist for further treatment, pt agrees with the plan, I answered all questions, sign off today, please call with questions, thanks, Supervising Physician Co-Signing Physician Notes Patient is a 51-year-old male with history of hypertension, diabetes mellitus, recently diagnosed metastatic esophageal adenocarcinoma and other medical problems who recently underwent EGD and stent placement for stenotic esophagus due to mass presents with history of persistent nausea, vomiting and inability to tolerate oral fluid intake. He was scheduled to have a PET scan and follow- up with oncology for further management. Patient denies any chest pain, shortness of breath, fever, chills, abdominal pain, odynophagia. Please review HPI for complete details of presentation. Blood work showed WBC 17.4, hemoglobin 9.7, hematocrit 30.7, platelet count 341, sodium 134, potassium 3.1, chloride 90, bicarbonate 32, BUN 16, creatinine 0.63, glucose 152, lactate 1.4, total bilirubin 4.3, AST 322, ALT 755, alk phos 324. CT abdomen showed gallbladder wall prominence, cannot rule out acute cholecystitis. Esophageal stent with satisfactory passage of contrast into the stomach. Thickening of the wall of the esophagus and proximal stomach noted. Numerous retroperitoneal lymph nodes were seen and enlarged from prior imaging concerning for metastatic disease. Gallbladder ultrasound showed multiple scattered hypoechoic lesions within the liver consistent with metastatic disease. Normal gallbladder with no gallstones noted. Blood cultures pending. EKG showed normal sinus rhythm, nonspecific ST changes, QTC 472. Physical Exam: Vitals signs as noted above General Appearance:Moderately built and nourished, no apparent distress Head: normocephalic, Atraumatic Eyes: normal inspection, EOMI, +Icteric Neck: supple, Trachea midline Respiratory/Chest: Normal breath sounds, CTA, No accessory muscle use Cardiovascular: S1, S2, No murmur Abdomen/GI:Soft, Non tender, Bowel sounds present, no guarding or rigidity Extremities/Musculoskeletal:normal inspection, no edema Neurologic/Psych:AAOX3, grossly no focal neurological deficits Skin: normal color, warm,+ jaundice Intractable nausea, vomiting Metastatic esophageal adenocarcinoma Transaminitis Hypokalemia Abnormal EKG Will empirically start on IV antibiotics Obtain MRCP Antiemetics Monitor LFTs Avoid hepatotoxic agents GI, surgery consulted Replace electrolytes as needed Work-up to rule out ACS, although less andrea Garcia personally reviewed the record. Patient is interviewed and examined at bedside. Patient's care is coordinated with Berkley Lopez PA-C. Please refer to the documentation above for details of patient's presentation and for discussion of other issues. History of Present Illness Reason for Consultation: acute cholecystitis Requesting Physician: Alonzo Solares MD Attending Physician: Alonzo Solares MD History of Present Illness History of Present Illness Chief Complaint: N/V s/p EGD with stent placement on 02/06. Primary Care Provider: Brigid Joseph PA-C This is a 51-year-old male who has significant past medical history of HTN, T2DM, incomplete right bundle branch block, GERD, history of postop streptococcal glomerulonephritis, newly diagnosed esophageal adenocarcinoma who presents to ED after undergoing EGD and stent placement of stenotic esophagus secondary to mass on 02/06/2022 due to persistent nausea and vomiting. Of significance patient was recently hospitalized on 01/25-01/26 due to inability to tolerate oral intake as well as heme positive stool.He was seen and evaluated by GI and felt that EGD not warranted at the time. Hemoglobin remained stable and he was treated with IV PPI and Pepcid. He was discharged home with gastroenterology follow-up as well as a PET scan scheduled for 02/11 for further staging of cancer. Yesterday he underwent EGD by Dr. Dobbs and found a malignant appearing esophageal stenosis with stent placed. He was discharged to home with a liquid diet for 2 days and omeprazole 40 mg once daily. WHen he went home he continued to have nausea and vomiting; Therefore, he presented to ED. HE generally feels weak. HE is not sure if he had any blood in vomit. HE denies any f/c/s, dizziness, lightheaded, chest pain, sob, cough, uri sx, abd pain, diarrhea, increased urg/freq with urination, melena, hematochezia. In ED patient remained hemodynamically stable. He was found to have elevated bili 4.3, ast 322, alt 755 and alp phose 324. He also was found to have Hypokalemia 3.1, sodium 134, glucose 152, WC 17.42k, H&H 9.7 and 30.7, platelet 341. CT abdomen pelvis revealed prominence of gallbladder wall which was partially visualized. Clinical correlation for acute cholecystitis is recommended. Interval placement of esophageal stent with satisfactory passage of contrast in the stomach. Thickening of the wall the esophagus and proximal stomach is again seen with numerous retroperitoneal lymph nodes enlarged from prior exam concerning for metastatic disease. In ED he received IV antiemetics, IV fluid, IV Zosyn and IV potassium. He denies any smoking, tobacco use, APAP use. +FH of Ca, great grandfather stomach ca, great grandmother had breast cancer. I ( Sandy Ward MD ) got a call for consult acute cholecystitis, I reviewed pt's H/P, labs, CT scan and U/S study with pt, pt denies abdominal pain now, with nausea, no vomiting, Allergies Allergy/AdvReac Type Severity Reaction Status Date / Time No Known Allergies Allergy Unknown Verified 02/07/22 17:42 Home Medications Medication Instructions Recorded Confirmed Type carvedilol 12.5 mg tablet 12.5 mg PO QAM 02/01/22 02/07/22 Histo ry ondansetron HCl 4 mg tablet 4 mg PO Q8H PRN Nausea 02/07/22 02/07/22 History Past Med/Surg History Medical History(Updated 02/07/22 @ 18:00 by Berkley Lopez PA-C) Adenocarcinoma Esophageal mass Esophageal neoplasm GIB (gastrointestinal bleeding) HTN (hypertension) Hypertension Hypokalemia T2DM (type 2 diabetes mellitus) Surgical History Hx of esophagogastroduodenoscopy Family History Father Cancer LungGrandmother (Paternal) Cancer BreastGrandfather (Paternal) Cancer Stomach Social History Smoking Status: Never smoker Second Hand Exposure: No; Hx Alcohol Use: No Hx Substance Use: No Preferred Language: Mongolian Communication Ability: Effective Eating Disorder Specialist Required: No Beliefs That Will Affect Care: None marital status: Single Current Living Situation: Parent current occupational status: unemployed 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 Feels Safe at Home: Yes Diet Comment: Liquid diet during the past year weight has: decreased > 10 lbs Dental Care, Regularly: Yes Assistive Devices: Contacts and Glasses Review of Systems Review of Systems: All systems reviewed & are unremarkable except as noted in HPI & below Allergies Allergy/AdvReac Type Severity Reaction Status Date / Time No Known Allergies Allergy Unknown Verified 02/07/22 17:42 Home Medications Medication Instructions Recorded Confirmed Type carvedilol 12.5 mg tablet 12.5 mg PO QAM 02/01/22 02/07/22 History ondansetron HCl 4 mg tablet 4 mg PO Q8H PRN Nausea 02/07/22 02/07/22 History Patient History Medical History (Updated 02/07/22 @ 18:00 by Berkley Lopez PA-C) Adenocarcinoma Esophageal mass Esophageal neoplasm GIB (gastrointestinal bleeding) HTN (hypertension) Hypertension Hypokalemia T2DM (type 2 diabetes mellitus) Surgical History Hx of esophagogastroduodenoscopy Family History Father Cancer Lung Grandmother (Paternal) Cancer Breast Grandfather (Paternal) Cancer Stomach Social History Smoking Status: Never smoker Second Hand Exposure: No; Hx Alcohol Use: No Hx Substance Use: No Preferred Language: Mongolian Communication Ability: Effective Eating Disorder Specialist Required: No Beliefs That Will Affect Care: None marital status: Single Current Living Situation: Parent current occupational status: unemployed 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 Feels Safe at Home: Yes Diet Comment: Liquid diet during the past year weight has: decreased > 10 lbs Dental Care, Regularly: Yes Assistive Devices: Contacts and Glasses Physical Exam Constitutional: WD/WN, vitals as above no distress Eyes: Jaundice Neck: trachea midline, no thyromegaly Respiratory: normal respiratory effort, lungs clear to auscultation Cardiovascular: RRR, no murmur, no edema Gastrointestinal (Abdomen): soft, NT, Nd BS + Musculoskeletal: no cyanosis or clubbing, extremities motor strength 5/5 Neurologic: patellar DTR's 2+ bilat, sensation intact Psychiatric: A+Ox3, euthymic affect Results & Data ([facility]) Vital Signs (Past 12 Hours) Vital Signs Temp Pulse Pulse Resp BP BP Pulse Ox 02/07/22 19:28 63 14 134/85 97 02/07/22 18:00 63 20 133/88 95 02/07/22 16:00 78 20 138/88 97 02/07/22 14:30 36.1 C L 102 H 20 94/64 L 96 O2 Del Method 02/07/22 19:28 Room Air 02/07/22 18:00 Room Air 02/07/22 16:00 Room Air 02/07/22 14:30 Room Air Laboratory Results Abnormal lab results 02/07/22 02/07/22 Range/Units 14:52 14:52 WBC 17.42 H (4.8-10.8) K/ul RBC 4.00 L (4.63-6.08) M/uL Hgb 9.7 L (14.0-18.0) g/dl Hct 30.7 L (40.1-51.0) % MCV 76.8 L (80.0-100.0) fL MCH 24.3 L (25.0-34.0) pg MCHC 31.6 L (32.0-36.0) g/dL RDW Coeff of [place] 14.7 H (11.5-14.5) % Neut # (Auto) 12.30 H (1.4-6.5) K/uL Lymph # (Auto) 4.07 H (1.2-3.4) K/uL [place] # (Auto) 0.83 H (0.24-0.82) K/uL Immature Gran # (Auto) 0.19 H (0.00-0.02) K/uL Absolute Nucleated RBC 0.02 H (0-0) K/uL Sodium 134 L (136-145) mmol/L Potassium 3.1 L (3.5-5.1) mmol/L Chloride 90 L (98-107) mmol/L Anion Gap 12 H (3-11) BUN/Creatinine Ratio 25.4 H (10-20) Glucose 152 H (70-99(Fasting)) mg/dl Total Bilirubin 4.3 H (0.2-1.0) mg/dl AST 322 H (13-39) U/L ALT 755 H (7-52) U/L Alkaline Phosphatase 324 H (34-104) U/L Globulin 2.4 L (2.5-4.0) gm/dl Diagnostic Findings ABDOMINAL ULTRASOUND, RIGHT UPPER QUADRANT HISTORY: Elevated LFTs.. COMPARISON: Abdomen and pelvis CT 02/07/2022. FINDINGS: Pancreas: The pancreatic head and tail are obscured by overlying bowel gas. The remaining portions of the pancreas are within normal limits. Liver: There are scattered hypoechoic lesions seen within the liver with the 2 largest within the right hepatic lobe measuring 4.5 and 2.7 cm. The main portal vein is patent and demonstrate normal direction of flow. There is mild periport al edema again noted. There is mild intrahepatic bile duct dilatation. Gallbladder: No gallbladder wall thickening. No gallstones. CBD: 5 mm. Right kidney: No hydronephrosis. IMPRESSION: 1. Multiple scattered hypoechoic lesions within the liver consistent with metastatic disease. Dominant lesion measures 4.5 cm. 2. Normal gallbladder. No gallstones. ACT 112: Negative or not required by law. CT abd pelvis wo con CLINICAL HISTORY: poss obstruction TECHNIQUE: Helical axial images of the abdomen and pelvis were obtained. Automated dose lowering techniques and/or adjustment according to patient size were utilized for this exam. This exam was performed without intravenous contrast. CT DOSE: 1041.88 mGy.cm COMPARISON: Comparison is made to CT abdomen pelvis 01/02/2022 FINDINGS: Lower chest: No acute abnormality Liver: Unremarkable. No focal lesions are seen. Gallbladder and biliary tree: The gallbladder contents are hyperdense which may represent vicarious excretion of contrast. There is prominence of the gallbladder wall measuring approximately 3.5 mm. No intra- or extrahepatic biliary ductal dilation. Pancreas: Unremarkable, no focal lesions. Spleen: Unremarkable. Adrenals: Unremarkable. Kidneys and ureters: Perinephric stranding is noted bilaterally. Bladder: Unremarkable. Reproductive organs: Prostatic calcifications are seen which may represent prior hemorrhage or granulomatous disease. Bowel: Diverticulosis is seen without evidence of diverticulitis. The appendix is normal. Contrast material is noted to pass freely through an esophageal stent. The gastric wall is thickened. Lymph nodes Retroperitoneal: Numerous enlarged lymph nodes are seen measuring up to 17 mm in short axis. Jolene hepatis nodes are also seen measuring up to 11 mm. There is a retroperitoneal node measuring 31 x 37 mm, stable to minimally enlarged from prior exam, which may also represent an enlarged retroperitoneal node. Pelvic: Unremarkable. Mesenteric: Subcentimeter lymph nodes are noted. Peritoneum: Fat stranding is seen in the upper abdomen particularly around the stomach. Vessels: Unremarkable. Abdominal wall: Unremarkable. Bones: Unremarkable. IMPRESSION: 1. Prominence of the gallbladder wall which is partially visualized with intraluminal vicarious contrast. Clinical correlation for acute cholecystitis is recommended. 2. Interval placement of esophageal stent with satisfactory passage of contrast into the stomach. Thickening of the wall of the esophagus and proximal stomach is again seen. Numerous retroperitoneal lymph nodes are seen, enlarged from prior exam, concerning for metastatic disease. Subcentimeter mesenteric nodes are also seen. ACT 112: Negative or not required by law.
[2022-02-07] MEDS ORDERED: HEPARIN SOD 5,000 UNIT/0.5 ML VIAL SQ ONE (22:00)
[2022-02-08] MEDS: PIPERACILLIN/TAZOBACTAM 3.375 GM in DEXTROSE 5% 100 ML IV SCH ×4 (00:03→23:37)
--- NOTE | 2022-02-08 06:07 | Electrocardiogram Report ---
Test Reason : Blood Pressure : / mmHG Vent. Rate : 082 BPM Atrial Rate : 082 BPM P-R Int : 132 ms QRS Dur : 092 ms QT Int : 404 ms P-R-T Axes : 046 -07 091 degrees QTc Int : 472 ms Normal sinus rhythm Nonspecific ST abnormality Abnormal ECG When compared with ECG of 01-FEB-2022 17:49, ST now depressed in Inferior leads Non-specific change in ST segment in Lateral leads Confirmed by Yonny Castle ([id number]) on 02/08/2022 6:07:40 AM Referred By: REFERRED SELF Confirmed By:Yonny Castle
[2022-02-08 06:23] LABS: Appearance Urine Clear (Clear); Bacteria Urine Automated Negative (Negative); Blood Urine Negative (Negative); Color Urine Dark Yellow; Epithelial Cell Urine Auto 0-5 /lpf (0-5); Glucose Urine UA Negative (Negative); Ketones Urine 3+ (Negative); Leukocyte Esterase Urine Negative (Negative); Nitrite Urine Negative (Negative); Protein Urine Trace (Negative); RBC Urine Automated 0-4 /hpf (0-4); Specific Gravity Urine 1.018 (1.000-1.030); Urobilinogen Urine Negative (Negative)
[2022-02-08 06:52] LABS: Bilirubin Urine 1+ (Negative)
--- NOTE | 2022-02-08 07:32 | Hospitalist Progress Note ---
Date of Service February 08, 2022 Assessment & Plan (1) Nausea & vomiting: (2) Esophageal cancer: (3) Hypokalemia: (4) Transaminitis: (5) Leukocytosis: (6) HTN (hypertension): (7) T2DM (type 2 diabetes mellitus): Plan This is a 51-year-old male who has significant past medical history of HTN, T2DM, incomplete right bundle branch block, GERD, history of postop streptococcal glomerulonephritis, newly diagnosed esophageal adenocarcinoma who presents to ED after undergoing EGD and stent placement of stenotic esophagus secondary to mass on 02/06/2022 due to persistent nausea and vomiting. Nausea and vomiting Esophageal adenocarcinoma status post stent placement via EGD on 02/06/2022, currently undergoing staging with METS to lymph nodes and now liver Transaminitis Leukocytosis Patient underwent EGD with stent placement yesterday. Since procedure has been unable to tolerate anything orally. Has new onset transaminitis with hyperbilirubinemia of 4.3, AST 322, ALT 75 and alk phos 324 Also has elevated WBC at 17.42k CT abdomen pelvis concerning for possible acute cholecystitis GB US: Multiple scattered hypoechoic lesions within the liver consistent with metastatic disease. Dominant lesion measures 4.5 cm. Consult general surgery and gastroenterology Patient with minimal abdominal tenderness, +jaundice Continue IV Zosyn empirically Follow LFTs Will Obtain MRCP NPO after midnight gentle IVF with KCL pt to be on omeprazole 40 QD, but didn't start yet Hypokalemia Due to vomiting, poor intake Replace Microcytic anemia Likely in setting of cancer, hemoglobin 9.7 and 30.7 Obtain anemia panel in a.m. EKG change lateral depressions, trop negative, denies chest pain will repeat ekg in a.m. obtain echo repeat trop x1 HTN bp stable continue coreg T2DM A1c 7.1 on 09/2021 Monitor blood sugars, given poor intake will not place on coverage A1c in a.m. DVT ppx: SCDS/TEDS, will give heparin SQ x 1 dose tonight, re eval in a.m. to determine if procedure needed, if not re start chemical prophylaxis DNR/DNI Dispo: med/surg PCP: Brigid Hu Admission and Anticipated Discharge Date Admission Date: February 07, 2022 Subjective Pt seen in follow up Nausea and vomiting, Esophageal adenocarcinoma s/p stent placement via EGD on 02/06/2022 Results & Data Results & Data ([facility] [place]) Vital Signs (Past 12 Hours) Vital Signs Temp Pulse Resp BP BP Pulse Ox O2 Del Method 02/08/22 07:10 36.8 C 71 18 119/73 93 Room Air 02/08/22 02:16 36.9 C 99 H 18 128/79 95 Room Air 02/07/22 23:55 36.9 C 77 18 132/79 95 Room Air Laboratory Results 02/08/22 02/08/22 02/07/22 Range/Units Unknown 00:25 22:40 WBC (4.8-10.8) K/ul RBC (4.63-6.08) M/uL Hgb (14.0-18.0) g/dl Hct (40.1-51.0) % MCV (80.0-100.0) fL MCH (25.0-34.0) pg MCHC (32.0-36.0) g/dL RDW Std Deviation (36.4-46.3) fL RDW Coeff of [place] (11.5-14.5) % Plt Count (130-400) K/uL MPV (9.4-12.4) fL Immature Gran % (Auto) % Neut % (Auto) % Lymph % (Auto) % [place] % (Auto) % Eos % (Auto) % Baso % (Auto) % Neut # (Auto) (1.4-6.5) K/uL Lymph # (Auto) (1.2-3.4) K/uL [place] # (Auto) (0.24-0.82) K/uL Eos # (Auto) (0-0.50) K/uL Baso # (Auto) (0-0.2) K/uL Immature Gran # (Auto) (0.00-0.02) K/uL Absolute Nucleated RBC (0-0) K/uL Nucleated RBC % (auto) % Sodium (136-145) mmol/L Potassium (3.5-5.1) mmol/L Chloride (98-107) mmol/L Carbon Dioxide (21-32) mmol/L Anion Gap (3-11) BUN (6-23) mg/dl Creatinine (0.6-1.4) mg/dl Est Cr Clr Drug Dosing ml/min Est GFR ( Amer) ml/min Est GFR (Non-Af Amer) ml/min BUN/Creatinine Ratio (10-20) Glucose (70-99(Fasting)) mg/dl POC Glucose 136 H (70-99) mg/dl Lactate (0.4-2.0) mmol/L Calcium (8.5-10.1) mg/dl Magnesium (1.7-2.4) mg/dl Total Bilirubin (0.2-1.0) mg/dl AST (13-39) U/L ALT (7-52) U/L Alkaline Phosphatase (34-104) U/L Troponin I High Sens 13.3 (0-20) pg/ml Total Protein (6.0-8.3) gm/dl Albumin (3.4-5.0) gm/dl Globulin (2.5-4.0) gm/dl Albumin/Globulin Ratio (0.9-2) Lipase (11-82) U/L Urine Color Dark Yellow Urine Appearance Clear (Clear) Urine pH 7.0 (4.5-7.5) Ur Specific [place] 1.018 (1.000-1.030) Urine Protein Trace H (Negative) Urine Glucose (UA) Negative (Negative) Urine Ketones 3+ H (Negative) Urine Blood Negative (Negative) Urine Nitrite Negative (Negative) Urine Bilirubin 1+ H (Negative) Urine Urobilinogen Negative (Negative) Ur Leukocyte Esterase Negative (Negative) Urine WBC (Auto) 1-5 (0-5) /hpf Urine RBC (Auto) 0-4 (0-4) /hpf U Hyaline Cast (Auto) 1-5 (0-5) /lpf U Epithel Cells (Auto) 0-5 (0-5) /lpf Urine Bacteria (Auto) Negative (Negative) SARS-CoV-2, RNA, NAAT (NEGATIVE) 02/07/22 02/07/22 02/07/22 Range/Units 17:48 15:30 14:52 WBC (4.8-10.8) K/ul RBC (4.63-6.08) M/uL Hgb (14.0-18.0) g/dl Hct (40.1-51.0) % MCV (80.0-100.0) fL MCH (25.0-34.0) pg MCHC (32.0-36.0) g/dL RDW Std Deviation (36.4-46.3) fL RDW Coeff of [place] (11.5-14.5) % Plt Count (130-400) K/uL MPV (9.4-12.4) fL Immature Gran % (Auto) % Neut % (Auto) % Lymph % (Auto) % [place] % (Auto) % Eos % (Auto) % Baso % (Auto) % Neut # (Auto) (1.4-6.5) K/uL Lymph # (Auto) (1.2-3.4) K/uL [place] # (Auto) (0.24-0.82) K/uL Eos # (Auto) (0-0.50) K/uL Baso # (Auto) (0-0.2) K/uL Immature Gran # (Auto) (0.00-0.02) K/uL Absolute Nucleated RBC (0-0) K/uL Nucleated RBC % (auto) % Sodium (136-145) mmol/L Potassium (3.5-5.1) mmol/L Chloride (98-107) mmol/L Carbon Dioxide (21-32) mmol/L Anion Gap (3-11) BUN (6-23) mg/dl Creatinine (0.6-1.4) mg/dl Est Cr Clr Drug Dosing ml/min Est GFR ( Amer) ml/min Est GFR (Non-Af Amer) ml/min BUN/Creatinine Ratio (10-20) Glucose (70-99(Fasting)) mg/dl POC Glucose (70-99) mg/dl Lactate 1.4 (0.4-2.0) mmol/L Calcium (8.5-10.1) mg/dl Magnesium (1.7-2.4) mg/dl Total Bilirubin (0.2-1.0) mg/dl AST (13-39) U/L ALT (7-52) U/L Alkaline Phosphatase (34-104) U/L Troponin I High Sens 10.3 (0-20) pg/ml Total Protein (6.0-8.3) gm/dl Albumin (3.4-5.0) gm/dl Globulin (2.5-4.0) gm/dl Albumin/Globulin Ratio (0.9-2) Lipase (11-82) U/L Urine Color Urine Appearance (Clear) Urine pH (4.5-7.5) Ur Specific [place] (1.000-1.030) Urine Protein (Negative) Urine Glucose (UA) (Negative) Urine Ketones (Negative) Urine Blood (Negative) Urine Nitrite (Negative) Urine Bilirubin (Negative) Urine Urobilinogen (Negative) Ur Leukocyte Esterase (Negative) Urine WBC (Auto) (0-5) /hpf Urine RBC (Auto) (0-4) /hpf U Hyaline Cast (Auto) (0-5) /lpf U Epithel Cells (Auto) (0-5) /lpf Urine Bacteria (Auto) (Negative) SARS-CoV-2, RNA, NAAT NEGATIVE (NEGATIVE) 02/07/22 02/07/22 Range/Units 14:52 14:52 WBC 17.42 H (4.8-10.8) K/ul RBC 4.00 L (4.63-6.08) M/uL Hgb 9.7 L (14.0-18.0) g/dl Hct 30.7 L (40.1-51.0) % MCV 76.8 L (80.0-100.0) fL MCH 24.3 L (25.0-34.0) pg MCHC 31.6 L (32.0-36.0) g/dL RDW Std Deviation 39.7 (36.4-46.3) fL RDW Coeff of [place] 14.7 H (11.5-14.5) % Plt Count 341 (130-400) K/uL MPV 10.4 (9.4-12.4) fL Immature Gran % (Auto) 1.1 % Neut % (Auto) 70.5 % Lymph % (Auto) 23.4 % [place] % (Auto) 4.8 % Eos % (Auto) 0.0 % Baso % (Auto) 0.2 % Neut # (Auto) 12.30 H (1.4-6.5) K/uL Lymph # (Auto) 4.07 H (1.2-3.4) K/uL [place] # (Auto) 0.83 H (0.24-0.82) K/uL Eos # (Auto) 0.00 (0-0.50) K/uL Baso # (Auto) 0.03 (0-0.2) K/uL Immature Gran # (Auto) 0.19 H (0.00-0.02) K/uL Absolute Nucleated RBC 0.02 H (0-0) K/uL Nucleated RBC % (auto) 0.1 % Sodium 134 L (136-145) mmol/L Potassium 3.1 L (3.5-5.1) mmol/L Chloride 90 L (98-107) mmol/L Carbon Dioxide 32 (21-32) mmol/L Anion Gap 12 H (3-11) BUN 16 (6-23) mg/dl Creatinine 0.63 (0.6-1.4) mg/dl Est Cr Clr Drug Dosing 148.8 ml/min Est GFR ( Amer) 130.4 ml/min Est GFR (Non-Af Amer) 112.5 ml/min BUN/Creatinine Ratio 25.4 H (10-20) Glucose 152 H (70-99(Fasting)) mg/dl POC Glucose (70-99) mg/dl Lactate (0.4-2.0) mmol/L Calcium 8.9 (8.5-10.1) mg/dl Magnesium 1.8 (1.7-2.4) mg/dl Total Bilirubin 4.3 H (0.2-1.0) mg/dl AST 322 H (13-39) U/L ALT 755 H (7-52) U/L Alkaline Phosphatase 324 H (34-104) U/L Troponin I High Sens (0-20) pg/ml Total Protein 6.0 (6.0-8.3) gm/dl Albumin 3.6 (3.4-5.0) gm/dl Globulin 2.4 L (2.5-4.0) gm/dl Albumin/Globulin Ratio 1.5 (0.9-2) Lipase 44 (11-82) U/L Urine Color Urine Appearance (Clear) Urine pH (4.5-7.5) Ur Specific [place] (1.000-1.030) Urine Protein (Negative) Urine Glucose (UA) (Negative) Urine Ketones (Negative) Urine Blood (Negative) Urine Nitrite (Negative) Urine Bilirubin (Negative) Urine Urobilinogen (Negative) Ur Leukocyte Esterase (Negative) Urine WBC (Auto) (0-5) /hpf Urine RBC (Auto) (0-4) /hpf U Hyaline Cast (Auto) (0-5) /lpf U Epithel Cells (Auto) (0-5) /lpf Urine Bacteria (Auto) (Negative) SARS-CoV-2, RNA, NAAT (NEGATIVE) Medications Administered Current Inpatient Medications Acetaminophen (Acetaminophen 325 Mg Tab) 650 mg PO Q4H PRN PRN Reason: pain/fever Stop: 03/09/22 20:03 Al Hydrox/Mg Hydrox/Simethicone (Aluminum/Magnesium Susp 30 Ml Udc) 30 ml PO Q6H PRN PRN Reason: Dyspepsia Stop: 03/09/22 20:03 Carvedilol (Carvedilol 12.5 Mg Tab) 12.5 mg PO QAM LONG Stop: 03/10/22 08:59 Dextrose (Dextrose 50% 50 Ml Syringe) 25 - 50 ml IV UD PRN; Protocol PRN Reason: Hypoglycemia Protocol Stop: 03/09/22 20:03 Glucagon (Glucagon For Inj 1 Mg Vial) 1 mg SQ UD PRN; Protocol PRN Reason: Hypoglycemia Protocol Stop: 03/09/22 20:03 Glucose (Glucose 40% Gel 15 Gm Tube) 15 - 30 gm PO UD PRN; Protocol PRN Reason: Hypoglycemia Protocol Stop: 03/09/22 20:03 Glucose (Glucose 10 Tab/Tube) 4 - 8 tab PO UD PRN; Protocol PRN Reason: Hypoglycemia Treatment Stop: 03/09/22 20:03 Piperacillin Sod/Tazobactam (Sod 3.375 gm/ Dextrose) 115 mls @ 28.75 mls/hr IV Q8H LONG; Protocol Stop: 02/18/22 00:00 Last Infusion: 02/08/22 04:14 Dose: Infused Promethazine HCl 12.5 mg/ (Sodium Chloride) 50.5 mls @ 202 mls/hr IV Q6H PRN PRN Reason: Nausea And Vomiting Stop: 03/09/22 20:03 Potassium Chloride/Sodium Chloride (Normal Saline W/20 Meq Kcl) 20 meq in 1,000 mls @ 80 mls/hr IV .[id number] LONG; Protocol Stop: 02/08/22 08:44 Last Admin: 02/07/22 21:35 Dose: 80 mls/hr Miscellaneous (Carbohydrates For Hypoglycemia ) 15 - 30 gm PO UD PRN PRN Reason: Hypoglycemia Protocol Stop: 03/09/22 20:03 Pantoprazole Sodium (Pantoprazole 40 Mg Tab) 40 mg PO DAILY LONG Stop: 03/10/22 08:59 Polyethylene Glycol (Polyethylene (Miralax) 17 Gm Pack) 17 gm PO DAILY PRN PRN Reason: Constipation Stop: 03/09/22 20:03
[2022-02-08 07:43] LABS: Basophils # (auto) 0.01 K/uL (0-0.2); Basophils % (auto) 0.1 %; Hematocrit (blood only) 23.6 % (40.1-51.0); Hemoglobin 7.6 g/dl (14.0-18.0); Immature Granulocytes # (auto) 0.14 K/uL (0.00-0.02); Immature Granulocytes % (auto) 1.2 %; Lymphocytes # (auto) 2.55 K/uL (1.2-3.4); Lymphocytes % (auto) 21.6 %; Mean Corpuscular Hemoglobin 24.7 pg (25.0-34.0); Mean Corpuscular Hgb Conc 32.2 g/dL (32.0-36.0); Mean Corpuscular Volume 76.6 fL (80.0-100.0); Mean Platelet Volume 10.7 fL (9.4-12.4); Monocytes % (auto) 5.9 %; Neutrophils # (auto) 8.43 K/uL (1.4-6.5); Neutrophils % (auto) 71.2 %; Platelet Count 228 K/uL (130-400); RDW Standard Deviation 40.8 fL (36.4-46.3); Red Blood Count 3.08 M/uL (4.63-6.08); White Blood Count 11.83 K/ul (4.8-10.8)
[2022-02-08 08:00] LABS: Estimated Average Glucose 131 mg/dl; Hemoglobin A1C 6.2 % (4.5-5.6)
[2022-02-08 08:10] LABS: Polychromasia 1+
[2022-02-08 08:12] LABS: Thyroid Stimulating Hormone 0.209 uIu/ml (0.300-4.500)
[2022-02-08 08:26] LABS: Albumin Globulin Ratio 1.6 (0.9-2); Albumin Level 2.9 gm/dl (3.4-5.0); BUN Creatinine Ratio 22.2 (10-20); Bilirubin,Total 4.6 mg/dl (0.2-1.0); Calcium 7.9 mg/dl (8.5-10.1); Creatinine Clr Calc Pharmacy 187.9 ml/min; Est GFR (African American) 138.9 ml/min; Est GFR (Non-African American) 119.9 ml/min; Ferritin 33.1 ng/ml (8-388); Globulin 1.8 gm/dl (2.5-4.0); Magnesium 1.6 mg/dl (1.7-2.4); Potassium 2.9 mmol/L (3.5-5.1); Total Protein 4.7 gm/dl (6.0-8.3)
[2022-02-08 08:43] LABS: Folate (Folic Acid) 6.11 ng/ml (>5.38)
[2022-02-08 08:44] LABS: T4 Free Thyroxine 1.21 ng/dl (0.61-1.60)
--- NOTE | 2022-02-08 08:51 | Magnetic Resonance Report ---
MRCP CLINICAL HISTORY: Elevated bilirubin, metastatic disease. Evaluate for obstruction. TECHNIQUE: Utilizing a 1.5 Yojana magnet and dedicated coil, multiplanar, multiecho imaging of the [facility] er abdomen was performed utilizing heavily T2 weighted pulsing sequences without IV contrast. COMPARISON STUDY: CT of the abdomen and pelvis January 02, 2022 and February 07, 2022 at 4:09 PM. [facility] upper quadrant ultrasound February 07, 2022. FINDINGS: Exam is mildly compromised by motion artifact. Liver morphology is normal. There are innume rable T2 hyperintense hepatic lesions which measure up to approximately 2 cm. There is no significant intra or extrahepatic biliary ductal dilatation. No common bile duct calculi are identified. Note is made of apparent extrinsic compression upon the main portal vein shown on axial image 13 of 30. Ther e may be associated extrinsic compression upon the common hepatic duct. This could be due to lymphade nopathy. In addition, there is possible extrinsic compression upon the mid and distal common bile maritza t. There is no pancreatic ductal dilatation. Susceptibility artifact from the esophageal stent is not ed. This appears well-positioned. Distal esophageal and proximal gastric wall thickening represents t he known malignancy. There is extensive abdominal lymphadenopathy. A periceliac node measures 2.4 x 2 .8 cm. There is no hydronephrosis. IMPRESSION: 1. No significant biliary ductal dilatation. However, apparent extrinsic compression upon the common hepatic and common bile ducts, as described above. This could be due to adjacent lymphadenopathy. ERC P might be considered. 2. Innumerable hepatic lesions measuring up to 2 cm. These are consistent with metastases. 3. Distal esophageal and proximal gastric mass consistent with known primary with pathologic lymphade nopathy. Distal esophageal stent in place. ACT 112: Negative or not required by law. Electronically signed by: Benjamin Blancas M.D. 02/08/2022 8:49 AM
[2022-02-08] MEDS: PANTOprazole 40 MG TAB PO SCH (09:15)
[2022-02-08] MEDS: carvediloL 12.5 MG TAB PO SCH (09:15)
--- NOTE | 2022-02-08 09:23 | Gastrointestinal Consultation ---
Date of Consultation February 08, 2022 Assessment & Plan (1) Vomitin51 year old male with esophageal CA s/p esophageal stenting yesterday presenting with abd pain, nausea, vomiting (now resolved) who was noted to have elevated LFTs, imaging w/ extrinsic compression upon the common hepatic and common bile ducts possible secondary to lymphadenopathy vs hepatic lesion It was recommend he remain NPO for ERCP today. He is hesitant to undergo this procedure, but was agreeable to remaining NPO until he decided. After discussing with the primary service advanced providers, pt is considering going home with comfort measures only. Thank you for allowing us to participate in the care of this patient. Please call with any acute changes, questions or concerns. Please see addendum below with additional recommendation from my supervising physician. Supervising Physician Co-Signing Physician Notes I performed a history and physical examination of the patient today, including specifically on physical exam - soft abdomen. I have discussed the patient's management with the advanced practitioner. Please refer to the nurse practitioner's note for the documented findings and plan of care. ERCP for hilar stricture Patient was explained in detail regarding risks, benefits, limitations and alternatives of the above endoscopic procedure. Risks of intravenous sedation used for procedure were also explained. Risks include, but not limited to perforation, bleeding, infection, respiratory distress, cardiac arrest and . Patient is also aware about the possibility of missed lesion. Patient's questions were answered. The patient verbalized understanding the information and agreed to undergo the procedure. History of Present Illness Reason for Consultation: nausea, vomiting, elevated LFTs Requesting Physician: Dipak Attending Physician: Shaquille Quesada MD History of Present Illness 51 year old male w/ history of HTN, T2DM, incomplete right bundle branch block, GERD, history of postop streptococcal glomerulonephritis, newly diagnosed esophageal adenocarcinoma admitted w/ persistent nausea and vomiting s/p EGD w/ esophageal stent. GI asked to evaluate for nausea, vomiting, elevated LFTs. Pt notes that he is starting to feel better. Less pain. No vomiting this AM but still some nausea. Has had GERD, burping since the procedure yesterday. Denies black or bloody emesis. No black or bloody stools. MRCP 2021: No significant biliary ductal dilatation. However, apparent extrinsic compression upon the common hepatic and common bile ducts, as described above. This could be due to adjacent lymphadenopathy. ERCP might be considered. innumerable hepatic lesions measuring up to 2 cm. These are consistent with metastases. Distal esophageal and proximal gastric mass consistent with known primary with pathologic lymphadenopathy. Distal esophageal stent in place. ABD US 2021: Multiple scattered hypoechoic lesions within the liver consistent with metastatic disease. Dominant lesion measures 4.5 cm. Normal gallbladder. No gallstones. CTAP 2021: Prominence of the gallbladder wall which is partially visualized with intraluminal vicarious contrast. Clinical correlation for acute cholecystitis is recommended. Interval placement of esophageal stent with satisfactory passage of contrast into the stomach. Thickening of the wall of the esophagus and proximal stomach is again seen. Numerous retroperitoneal lymph nodes are seen, enlarged from prior exam, concerning for metastatic disease. Subcentimeter mesenteric nodes are also seen. Allergies Allergy/AdvReac Type Severity Reaction Status Date / Time No Known Allergies Allergy Unknown Verified 02/07/22 17:42 Home Medications Medication Instructions Recorded Confirmed Type carvedilol 12.5 mg tablet 12.5 mg PO QAM 02/01/22 02/07/22 History ondansetron HCl 4 mg tablet 4 mg PO Q8H PRN Nausea 02/07/22 02/07/22 History Patient History Medical History Adenocarcinoma Esophageal mass Esophageal neoplasm GIB (gastrointestinal bleeding) HTN (hypertension) Hypertension Hypokalemia T2DM (type 2 diabetes mellitus) Surgical History Hx of esophagogastroduodenoscopy Family History Father Cancer Lung Grandmother (Paternal) Cancer Breast Grandfather (Paternal) Cancer Stomach Social History Smoking Status: Never smoker Second Hand Exposure: No; Hx Alcohol Use: No Hx Substance Use: No Preferred Language: Guyanese Communication Ability: Effective Edge Stainer Machine Required: No Beliefs That Will Affect Care: None marital status: Single Current Living Situation: Parent Current Living Situation Comment: 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 current occupational status: unemployed 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 Other Information That Helps Us Care for You: No Feels Safe at Home: Yes Safety Concerns: Feels Safe At This Time Diet Comment: Liquid diet during the past year weight has: decreased > 10 lbs Dental Care, Regularly: Yes Assistive Devices: None Review of Systems Review of Systems: All systems reviewed & are unremarkable except as noted in HPI & below Physical Exam Constitutional: WD/WN, vitals as above Respiratory: normal respiratory effort, lungs clear to auscultation Cardiovascular: Rate/Rhythm: regular rate and regular rhythm Gastrointestinal (Abdomen): normal bowel sounds, soft, nontender, no hepatosplenomegaly Skin: no rashes, warm and dry Results & Data ([facility]) Vital Signs (Past 12 Hours) Vital Signs Temp Pulse Resp BP BP Pulse Ox O2 Del Method 02/08/22 07:10 36.8 C 71 18 119/73 93 Room Air 02/08/22 02:16 36.9 C 99 H 18 128/79 95 Room Air 02/07/22 23:55 36.9 C 77 18 132/79 95 Room Air Laboratory Results 02/08/22 02/08/22 02/08/22 Range/Units Unknown 08:04 07:10 WBC (4.8-10.8) K/ul RBC (4.63-6.08) M/uL Hgb (14.0-18.0) g/dl Hct (40.1-51.0) % MCV (80.0-100.0) fL MCH (25.0-34.0) pg MCHC (32.0-36.0) g/dL RDW Std Deviation (36.4-46.3) fL RDW Coeff of Kong (11.5-14.5) % Plt Count (130-400) K/uL MPV (9.4-12.4) fL Immature Gran % (Auto) % Neut % (Auto) % Lymph % (Auto) % [place] % (Auto) % Eos % (Auto) % Baso % (Auto) % Neut # (Auto) (1.4-6.5) K/uL Lymph # (Auto) (1.2-3.4) K/uL S[place]ent # (Auto) (0.24-0.82) K/uL Eos # (Auto) (0-0.50) K/uL Baso # (Auto) (0-0.2) K/uL Immature Gran # (Auto) (0.00-0.02) K/uL Absolute Nucleated RBC (0-0) K/uL Nucleated RBC % (auto) % Polychromasia Sodium (136-145) mmol/L Potassium (3.5-5.1) mmol/L Chloride (98-107) mmol/L Carbon Dioxide (21-32) mmol/L Anion Gap (3-11) BUN (6-23) mg/dl Creatinine (0.6-1.4) mg/dl Est Cr Clr Drug Dosing ml/min Est GFR ( Amer) ml/min Est GFR (Non-Af Amer) ml/min BUN/Creatinine Ratio (10-20) Glucose (70-99(Fasting)) mg/dl POC Glucose 131 H (70-99) mg/dl Estimat Average Glucose mg/dl Hemoglobin A1c (4.5-5.6) % Lactate (0.4-2.0) mmol/L Calcium (8.5-10.1) mg/dl Magnesium (1.7-2.4) mg/dl Iron (35-175) mcg/dl Transferrin (200-360) mg/dl Ferritin (8-388) ng/ml Total Bilirubin (0.2-1.0) mg/dl AST (13-39) U/L ALT (7-52) U/L Alkaline Phosphatase (34-104) U/L Troponin I High Sens (0-20) pg/ml Total Protein (6.0-8.3) gm/dl Albumin (3.4-5.0) gm/dl Globulin (2.5-4.0) gm/dl Albumin/Globulin Ratio (0.9-2) Lipase (11-82) U/L Vitamin B12 (180-914) pg/ml Folate (>5.38) ng/ml TSH 0.209 L (0.300-4.500) uIu/ml Free T4 1.21 (0.61-1.60) ng/dl Urine Color Dark Yellow Urine Appearance Clear (Clear) Urine pH 7.0 (4.5-7.5) Ur Specific [place] 1.018 (1.000-1.030) Urine Protein Trace H (Negative) Urine Glucose (UA) Negative (Negative) Urine Ketones 3+ H (Negative) Urine Blood Negative (Negative) Urine Nitrite Negative (Negative) Urine Bilirubin 1+ H (Negative) Urine Urobilinogen Negative (Negative) Ur Leukocyte Esterase Negative (Negative) Urine WBC (Auto) 1-5 (0-5) /hpf Urine RBC (Auto) 0-4 (0-4) /hpf U Hyaline Cast (Auto) 1-5 (0-5) /lpf U Epithel Cells (Auto) 0-5 (0-5) /lpf Urine Bacteria (Auto) Negative (Negative) SARS-CoV-2, RNA, NAAT (NEGATIVE) 02/08/22 02/08/22 02/08/22 Range/Units 07:10 07:10 07:10 WBC (4.8-10.8) K/ul RBC (4.63-6.08) M/uL Hgb (14.0-18.0) g/dl Hct (40.1-51.0) % MCV (80.0-100.0) fL MCH (25.0-34.0) pg MCHC (32.0-36.0) g/dL RDW Std Deviation (36.4-46.3) fL RDW Coeff of Kong (11.5-14.5) % Plt Count (130-400) K/uL MPV (9.4-12.4) fL Immature Gran % (Auto) % Neut % (Auto) % Lymph % (Auto) % Sargent % (Auto) % Eos % (Auto) % Baso % (Auto) % Neut # (Auto) (1.4-6.5) K/uL Lymph # (Auto) (1.2-3.4) K/uL [place] # (Auto) (0.24-0.82) K/uL Eos # (Auto) (0-0.50) K/uL Baso # (Auto) (0-0.2) K/uL Immature Gran # (Auto) (0.00-0.02) K/uL Absolute Nucleated RBC (0-0) K/uL Nucleated RBC % (auto) % Polychromasia Sodium 134 L (136-145) mmol/L Potassium 2.9 L (3.5-5.1) mmol/L Chloride 96 L (98-107) mmol/L Carbon Dioxide 32 (21-32) mmol/L Anion Gap 6 (3-11) BUN 12 (6-23) mg/dl Creatinine 0.54 L (0.6-1.4) mg/dl Est Cr Clr Drug Dosing 187.9 ml/min Est GFR ( Amer) 138.9 ml/min Est GFR (Non-Af Amer) 119.9 ml/min BUN/Creatinine Ratio 22.2 H (10-20) Glucose 120 H (70-99(Fasting)) mg/dl POC Glucose (70-99) mg/dl Estimat Average Glucose 131 mg/dl Hemoglobin A1c 6.2 H (4.5-5.6) % Lactate (0.4-2.0) mmol/L Calcium 7.9 L (8.5-10.1) mg/dl Magnesium 1.6 L (1.7-2.4) mg/dl Iron 16 L (35-175) mcg/dl Transferrin 195 L (200-360) mg/dl Ferritin 33.1 (8-388) ng/ml Total Bilirubin 4.6 H (0.2-1.0) mg/dl AST 309 H (13-39) U/L ALT 610 H (7-52) U/L Alkaline Phosphatase 316 H (34-104) U/L Troponin I High Sens (0-20) pg/ml Total Protein 4.7 L D (6.0-8.3) gm/dl Albumin 2.9 L (3.4-5.0) gm/dl Globulin 1.8 L (2.5-4.0) gm/dl Albumin/Globulin Ratio 1.6 (0.9-2) Lipase (11-82) U/L Vitamin B12 837 (180-914) pg/ml Folate 6.11 (>5.38) ng/ml TSH (0.300-4.500) uIu/ml Free T4 (0.61-1.60) ng/dl Urine Color Urine Appearance (Clear) Urine pH (4.5-7.5) Ur Specific [place] (1.000-1.030) Urine Protein (Negative) Urine Glucose (UA) (Negative) Urine Ketones (Negative) Urine Blood (Negative) Urine Nitrite (Negative) Urine Bilirubin (Negative) Urine Urobilinogen (Negative) Ur Leukocyte Esterase (Negative) Urine WBC (Auto) (0-5) /hpf Urine RBC (Auto) (0-4) /hpf U Hyaline Cast (Auto) (0-5) /lpf U Epithel Cells (Auto) (0-5) /lpf Urine Bacteria (Auto) (Negative) SARS-CoV-2, RNA, NAAT (NEGATIVE) 02/08/22 02/08/22 02/07/22 Range/Units 07:10 00:25 22:40 WBC 11.83 H (4.8-10.8) K/ul RBC 3.08 L (4.63-6.08) M/uL Hgb 7.6 L (14.0-18.0) g/dl Hct 23.6 L (40.1-51.0) % MCV 76.6 L (80.0-100.0) fL MCH 24.7 L (25.0-34.0) pg MCHC 32.2 (32.0-36.0) g/dL RDW Std Deviation 40.8 (36.4-46.3) fL RDW Coeff of Kong 15.0 H (11.5-14.5) % Plt Count 228 (130-400) K/uL MPV 10.7 (9.4-12.4) fL Immature Gran % (Auto) 1.2 % Neut % (Auto) 71.2 % Lymph % (Auto) 21.6 % [place] % (Auto) 5.9 % Eos % (Auto) 0.0 % Baso % (Auto) 0.1 % Neut # (Auto) 8.43 H (1.4-6.5) K/uL Lymph # (Auto) 2.55 (1.2-3.4) K/uL [place]ent # (Auto) 0.70 (0.24-0.82) K/uL Eos # (Auto) 0.00 (0-0.50) K/uL Baso # (Auto) 0.01 (0-0.2) K/uL Immature Gran # (Auto) 0.14 H (0.00-0.02) K/uL Absolute Nucleated RBC (0-0) K/uL Nucleated RBC % (auto) % Polychromasia 1+ Sodium (136-145) mmol/L Potassium (3.5-5.1) mmol/L Chloride (98-107) mmol/L Carbon Dioxide (21-32) mmol/L Anion Gap (3-11) BUN (6-23) mg/dl Creatinine (0.6-1.4) mg/dl Est Cr Clr Drug Dosing ml/min Est GFR ( Amer) ml/min Est GFR (Non-Af Amer) ml/min BUN/Creatinine Ratio (10-20) Glucose (70-99(Fasting)) mg/dl POC Glucose 136 H (70-99) mg/dl Estimat Average Glucose mg/dl Hemoglobin A1c (4.5-5.6) % Lactate (0.4-2.0) mmol/L Calcium (8.5-10.1) mg/dl Magnesium (1.7-2.4) mg/dl Iron (35-175) mcg/dl Transferrin (200-360) mg/dl Ferritin (8-388) ng/ml Total Bilirubin (0.2-1.0) mg/dl AST (13-39) U/L ALT (7-52) U/L Alkaline Phosphatase (34-104) U/L Troponin I High Sens 13.3 (0-20) pg/ml Total Protein (6.0-8.3) gm/dl Albumin (3.4-5.0) gm/dl Globulin (2.5-4.0) gm/dl Albumin/Globulin Ratio (0.9-2) Lipase (11-82) U/L Vitamin B12 (180-914) pg/ml Folate (>5.38) ng/ml TSH (0.300-4.500) uIu/ml Free T4 (0.61-1.60) ng/dl Urine Color Urine Appearance (Clear) Urine pH (4.5-7.5) Ur Specific [place] (1.000-1.030) Urine Protein (Negative) Urine Glucose (UA) (Negative) Urine Ketones (Negative) Urine Blood (Negative) Urine Nitrite (Negative) Urine Bilirubin (Negative) Urine Urobilinogen (Negative) Ur Leukocyte Esterase (Negative) Urine WBC (Auto) (0-5) /hpf Urine RBC (Auto) (0-4) /hpf U Hyaline Cast (Auto) (0-5) /lpf U Epithel Cells (Auto) (0-5) /lpf Urine Bacteria (Auto) (Negative) SARS-CoV-2, RNA, NAAT (NEGATIVE) 02/07/22 02/07/22 02/07/22 Range/Units 17:48 15:30 14:52 WBC (4.8-10.8) K/ul RBC (4.63-6.08) M/uL Hgb (14.0-18.0) g/dl Hct (40.1-51.0) % MCV (80.0-100.0) fL MCH (25.0-34.0) pg MCHC (32.0-36.0) g/dL RDW Std Deviation (36.4-46.3) fL RDW Coeff of Kong (11.5-14.5) % Plt Count (130-400) K/uL MPV (9.4-12.4) fL Immature Gran % (Auto) % Neut % (Auto) % Lymph % (Auto) % [place] % (Auto) % Eos % (Auto) % Baso % (Auto) % Neut # (Auto) (1.4-6.5) K/uL Lymph # (Auto) (1.2-3.4) K/uL [place]ent # (Auto) (0.24-0.82) K/uL Eos # (Auto) (0-0.50) K/uL Baso # (Auto) (0-0.2) K/uL Immature Gran # (Auto) (0.00-0.02) K/uL Absolute Nucleated RBC (0-0) K/uL Nucleated RBC % (auto) % Polychromasia Sodium (136-145) mmol/L Potassium (3.5-5.1) mmol/L Chloride (98-107) mmol/L Carbon Dioxide (21-32) mmol/L Anion Gap (3-11) BUN (6-23) mg/dl Creatinine (0.6-1.4) mg/dl Est Cr Clr Drug Dosing ml/min Est GFR ( Amer) ml/min Est GFR (Non-Af Amer) ml/min BUN/Creatinine Ratio (10-20) Glucose (70-99(Fasting)) mg/dl POC Glucose (70-99) mg/dl Estimat Average Glucose mg/dl Hemoglobin A1c (4.5-5.6) % Lactate 1.4 (0.4-2.0) mmol/L Calcium (8.5-10.1) mg/dl Magnesium (1.7-2.4) mg/dl Iron (35-175) mcg/dl Transferrin (200-360) mg/dl Ferritin (8-388) ng/ml Total Bilirubin (0.2-1.0) mg/dl AST (13-39) U/L ALT (7-52) U/L Alkaline Phosphatase (34-104) U/L Troponin I High Sens 10.3 (0-20) pg/ml Total Protein (6.0-8.3) gm/dl Albumin (3.4-5.0) gm/dl Globulin (2.5-4.0) gm/dl Albumin/Globulin Ratio (0.9-2) Lipase (11-82) U/L Vitamin B12 (180-914) pg/ml Folate (>5.38) ng/ml TSH (0.300-4.500) uIu/ml Free T4 (0.61-1.60) ng/dl Urine Color Urine Appearance (Clear) Urine pH (4.5-7.5) Ur Specific [place] (1.000-1.030) Urine Protein (Negative) Urine Glucose (UA) (Negative) Urine Ketones (Negative) Urine Blood (Negative) Urine Nitrite (Negative) Urine Bilirubin (Negative) Urine Urobilinogen (Negative) Ur Leukocyte Esterase (Negative) Urine WBC (Auto) (0-5) /hpf Urine RBC (Auto) (0-4) /hpf U Hyaline Cast (Auto) (0-5) /lpf U Epithel Cells (Auto) (0-5) /lpf Urine Bacteria (Auto) (Negative) SARS-CoV-2, RNA, NAAT NEGATIVE (NEGATIVE) 02/07/22 02/07/22 Range/Units 14:52 14:52 WBC 17.42 H (4.8-10.8) K/ul RBC 4.00 L (4.63-6.08) M/uL Hgb 9.7 L (14.0-18.0) g/dl Hct 30.7 L (40.1-51.0) % MCV 76.8 L (80.0-100.0) fL MCH 24.3 L (25.0-34.0) pg MCHC 31.6 L (32.0-36.0) g/dL RDW Std Deviation 39.7 (36.4-46.3) fL RDW Coeff of Kong 14.7 H (11.5-14.5) % Plt Count 341 (130-400) K/uL MPV 10.4 (9.4-12.4) fL Immature Gran % (Auto) 1.1 % Neut % (Auto) 70.5 % Lymph % (Auto) 23.4 % S[place]ent % (Auto) 4.8 % Eos % (Auto) 0.0 % Baso % (Auto) 0.2 % Neut # (Auto) 12.30 H (1.4-6.5) K/uL Lymph # (Auto) 4.07 H (1.2-3.4) K/uL [place]ent # (Auto) 0.83 H (0.24-0.82) K/uL Eos # (Auto) 0.00 (0-0.50) K/uL Baso # (Auto) 0.03 (0-0.2) K/uL Immature Gran # (Auto) 0.19 H (0.00-0.02) K/uL Absolute Nucleated RBC 0.02 H (0-0) K/uL Nucleated RBC % (auto) 0.1 % Polychromasia Sodium 134 L (136-145) mmol/L Potassium 3.1 L (3.5-5.1) mmol/L Chloride 90 L (98-107) mmol/L Carbon Dioxide 32 (21-32) mmol/L Anion Gap 12 H (3-11) BUN 16 (6-23) mg/dl Creatinine 0.63 (0.6-1.4) mg/dl Est Cr Clr Drug Dosing 148.8 ml/min Est GFR ( Amer) 130.4 ml/min Est GFR (Non-Af Amer) 112.5 ml/min BUN/Creatinine Ratio 25.4 H (10-20) Glucose 152 H (70-99(Fasting)) mg/dl POC Glucose (70-99) mg/dl Estimat Average Glucose mg/dl Hemoglobin A1c (4.5-5.6) % Lactate (0.4-2.0) mmol/L Calcium 8.9 (8.5-10.1) mg/dl Magnesium 1.8 (1.7-2.4) mg/dl Iron (35-175) mcg/dl Transferrin (200-360) mg/dl Ferritin (8-388) ng/ml Total Bilirubin 4.3 H (0.2-1.0) mg/dl AST 322 H (13-39) U/L ALT 755 H (7-52) U/L Alkaline Phosphatase 324 H (34-104) U/L Troponin I High Sens (0-20) pg/ml Total Protein 6.0 (6.0-8.3) gm/dl Albumin 3.6 (3.4-5.0) gm/dl Globulin 2.4 L (2.5-4.0) gm/dl Albumin/Globulin Ratio 1.5 (0.9-2) Lipase 44 (11-82) U/L Vitamin B12 (180-914) pg/ml Folate (>5.38) ng/ml TSH (0.300-4.500) uIu/ml Free T4 (0.61-1.60) ng/dl Urine Color Urine Appearance (Clear) Urine pH (4.5-7.5) Ur Specific [place] (1.000-1.030) Urine Protein (Negative) Urine Glucose (UA) (Negative) Urine Ketones (Negative) Urine Blood (Negative) Urine Nitrite (Negative) Urine Bilirubin (Negative) Urine Urobilinogen (Negative) Ur Leukocyte Esterase (Negative) Urine WBC (Auto) (0-5) /hpf Urine RBC (Auto) (0-4) /hpf U Hyaline Cast (Auto) (0-5) /lpf U Epithel Cells (Auto) (0-5) /lpf Urine Bacteria (Auto) (Negative) SARS-CoV-2, RNA, NAAT (NEGATIVE) (1) Vomiting Nausea presence: with nausea Vomiting type: unspecified Qualified Code(s): R11.2 - Nausea with vomiting, unspecified
--- NOTE | 2022-02-08 11:49 | Anesthesiology Consultation ---
Date of Service February 08, 2022 Assessment & Plan (1) Encounter for pre-operative examination: Chart Review Chart Review: entry specialist initiated History Surgery Operation Date: 02/08/22 08:25 Proposed Procedures p Endoscopic Retrograde Cholangiopancreatogram - Ken Ruiz MD Height/Weight Height: 6 ft Weight: 93.5 kg Allergies Allergy/AdvReac Type Severity Reaction Status Date / Time No Known Allergies Allergy Unknown Verified 02/07/22 17:42 Medications Home Medications Medication Instructions Recorded Confirmed Last Taken carvedilol 12.5 mg tablet 12.5 mg PO QAM 02/01/22 02/07/22 02/01/22 ondansetron HCl 4 mg tablet 4 mg PO Q8H PRN Nausea 02/07/22 02/07/22 Unknown Active Medications Generic Name Dose Route Start Last Admin Trade Name Freq PRN Reason Stop Dose Admin Carvedilol 12.5 mg 02/08/22 09:00 02/08/22 09:15 Carvedilol 12.5 Mg Tab PO 03/10/22 08:59 12.5 mg QAM LONG Administration Piperacillin Sod/Tazobactam 115 mls @ 28.75 mls/hr 02/08/22 00:00 02/08/22 09:14 Sod 3.375 gm/ Dextrose IV 02/18/22 00:00 28.8 mls/hr Q8H LONG Administration Protocol Pantoprazole Sodium 40 mg 02/08/22 09:00 02/08/22 09:15 Pantoprazole 40 Mg Tab PO 03/10/22 08:59 40 mg DAILY LONG Administration Past Medical History Medical History Adenocarcinoma Esophageal mass Esophageal neoplasm GIB (gastrointestinal bleeding) HTN (hypertension) Hypertension Hypokalemia T2DM (type 2 diabetes mellitus) Past Family History Family History Father Cancer Lung Grandmother (Paternal) Cancer Breast Grandfather (Paternal) Cancer Stomach Past Surgical History Surgical History Hx of esophagogastroduodenoscopy Social History Smoking Status: Never smoker Hx Alcohol Use: No Hx Substance Use: No Physical Exam Vital Signs Last Vital Signs Temp 98.2 F 02/08/22 07:10 Pulse 71 02/08/22 07:10 Resp 18 02/08/22 07:10 BP 119/73 02/08/22 07:10 Pulse Ox 93 02/08/22 07:10 O2 Del Method 02/08/22 07:10 Testing Laboratory Results 02/08/22 07:10 02/08/22 07:10 Hemoglobin A1c 6.2 % (4.5-5.6) H 02/08/22 07:10 Urine Color Dark Yellow 02/08/22 Unknown Urine Appearance Clear (Clear) 02/08/22 Unknown Urine pH 7.0 (4.5-7.5) 02/08/22 Unknown Ur Specific [place] 1.018 (1.000-1.030) 02/08/22 Unknown Urine Protein Trace (Negative) H 02/08/22 Unknown Urine Glucose (UA) Negative (Negative) 02/08/22 Unknown Urine Ketones 3+ (Negative) H 02/08/22 Unknown Urine Nitrite Negative (Negative) 02/08/22 Unknown Ur Leukocyte Esterase Negative (Negative) 02/08/22 Unknown Urine WBC (Auto) 1-5 /hpf (0-5) 02/08/22 Unknown Urine RBC (Auto) 0-4 /hpf (0-4) 02/08/22 Unknown U Hyaline Cast (Auto) 1-5 /lpf (0-5) 02/08/22 Unknown U Epithel Cells (Auto) 0-5 /lpf (0-5) 02/08/22 Unknown Urine Bacteria (Auto) Negative (Negative) 02/08/22 Unknown 02/08/22 02/08/22 08:04 00:25 POC Glucose 131 H 136 H Electrocardiogram Date: 02/08/22 Normal sinus rhythm, rate [address] abnormality Abnormal ECG When compared with ECG of 07-FEB-2022 14:57, No significant change was found Chest X-Ray Date: 02/07/22 Findings: + NAD Echocardiogram Date: 02/08/22 There is normal LV wall thickness EF 55-60% Grade 1 diastolic dysfunction There is no significant valvular pathology
[2022-02-08] MEDS: POTASSIUM CHLORIDE / WTR 10 MEQ/100 ML PLCT IV SCH ×7 (12:04→23:34)
[2022-02-08] MEDS ORDERED: ATROPINE SULFATE 0.1 MG/ML 10ML SYR IV PRN (15:04)
[2022-02-08] MEDS ORDERED: fentaNYL citrate 100 MCG/2 ML VIAL IV PRN (15:04)
[2022-02-08] MEDS ORDERED: ePHEDrine sulfate 50 MG/ML AMP IV PRN (15:04)
[2022-02-08] MEDS ORDERED: ONDANSETRON INJ 2 MG/ML 2 ML VIAL IV PRN (15:04)
[2022-02-08] MEDS ORDERED: fentaNYL citrate 100 MCG/2 ML VIAL ONE ×2 (15:30→17:10)
--- NOTE | 2022-02-08 15:36 | Hospitalist Progress Note ---
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 Nausea and vomiting Esophageal adenocarcinoma status post stent placement via EGD on 02/06/2022, currently undergoing staging with METS to lymph nodes and now liver Transaminitis Leukocytosis Patient underwent EGD with stent placement 02/06. Since procedure has been unable to tolerate anything orally. Has new onset transaminitis with hyperbilirubinemia of 4.3, AST 322, ALT 75 and alk phos 324 Also has elevated WBC at 17.42k CT abdomen pelvis concerning for possible acute cholecystitis GB US:Multiple scattered hypoechoic lesions within the liver consistent with metastatic disease. Dominant lesion measures 4.5 cm. MRCP with no significant biliary ductal dilatation. However, apparent extrinsic compression upon the common hepatic and common bile ducts, as described above. This could be due to adjacent lymphadenopathy. ERCP might be considered. I nnumerable hepatic lesions measuring up to 2 cm. These are consistent with metastases. 3. Distal esophageal and proximal gastric mass consistent with known primary with pathologic lymphadenopathy. Distal esophageal stent in place. Gastroenterology - recommends ERCP, which patient looks to be undergoing this afternoon General surgery - recommends oncology and GI for further evaluation Continue IV Zosyn empirically Follow LFTs Goals of care Present for goals of care discussion with Lissett TUCKER due to poorly differentiated metastatic cancer and multiple admissions in the past few weeks Remains DNR/DNI; uncertain about whether or not he wants to pursue aggressive treatment. Wants to meet with oncologist and undergo PET scan next week to discuss prognosis more fully. Most concerned about maintaining a certain level of comfort and quality of life during this time. Outpatient palliative appt via telemedicine made for Friday02/12/22 at 1 pm for further discussion. Please see Lissett's note for further details of discussion. Hypokalemia Due to vomiting, poor intake Replacing Microcytic anemia Likely in setting of cancer, h/o GI bleeding Hgb downtrending to 7.6 likely dilutional effect, bleeding. ERCP this afternoon EKG change lateral depressions, trop negative, denies chest pain will repeat ekg in a.m. repeat trop x1 remained WNL Echo with EF 55%, grade 1 diastolic dysfunction HTN bp stable continue coreg T2DM A1c 7.1 on 09/2021 Monitor blood sugars, given poor intake will not place on coverage A1c in a.m. DVT ppx:SCDS/TEDS today, consider chemical prophylaxis tomorrow given cancer DNR/DNI Dispo: med/surg PCP: Brigid Hu Pt was seen and examined in collaboration with Dr. Quesada, please see addendum Admission and Anticipated Discharge Date Admission Date: February 07, 2022 Supervising Physician Co-Signing Physician Notes Patient seen and examined by me, care coordinated with Nancy Pearson PA-C, please refer to her note above for further detail. I met patient during his last admission here in the hospital. Discussed ERCP p cici, and patient decided to proceed with the procedure. He tells me that he does not have any more nausea however he also did not eat anything since his admission. No fevers chills, chest pain, shortness of breath. He is concerned about staying in the hospital too long, as he needs to get home and help his mother with her care. After ERCP, discussed findings with the GI attending, Dr. Ruiz. - Pre- existing esophageal stent partially migrated to the stomach. This was repositioned again. Stent lumen dilated to 15 mm however still would not accommodate passage of the duodenoscope hence ERCP not performed. Patient okay to start clear liquid diet. Patient is interested in possible hospice/ palliative care, and does not wish for any more intervention. MD Dipak Subjective Patient seen and examined in 356-2. Nausea has improved since last evening. Feels exhausted. Was present during discussion of goals of care with Lissett TUCKER. Patient is scheduled for PET scan and initial visit with Dr. Centeno next week. Does know his cancer has already metastasized and is most interested in remaining comfortable with reducing nausea and pain. Currently comfortable with rest. No fever, chills, headache, CP, SOB, dysuria, diarrhea or constipation. GI offered ERCP and patient is considering. Review of Systems Review of Systems: At least ten systems reviewed and negative except as noted in the HPI. Physical Exam Physical Exam: General Appearance: Moderately built and nourished, no apparent distress, appears ill. + Jaundice Head: normocephalic, Atraumatic Eyes: normal inspection, EOMI, +Icteric Neck: supple, Trachea midline Respiratory/Chest: Normal breath sounds, CTA, No accessory muscle use Cardiovascular: S1, S2, No murmur Abdomen/GI:Soft, Non tender, Bowel sounds present, no guarding or rigidity Extremities/Musculoskeletal:normal inspection, no edema Neurologic/Psych:AAOX3, grossly no focal neurological deficits Skin: normal color, warm,+ jaundice Results & Data Results & Data ([facility]) Vital Signs (Past 12 Hours) Vital Signs Temp Pulse Resp BP Pulse Ox O2 Del Method 02/08/22 14:50 36.8 C 71 18 119/81 95 Room Air 02/08/22 07:10 36.8 C 71 18 119/73 93 Room Air Laboratory Results Short CBC 02/08/22 Range/Units 07:10 WBC 11.83 H (4.8-10.8) K/ul Hgb 7.6 L (14.0-18.0) g/dl Hct 23.6 L (40.1-51.0) % Plt Count 228 (130-400) K/uL BMP 02/08/22 02/08/22 07:10 14:06 Sodium 134 L Potassium 2.9 L 3.3 L Chloride 96 L Carbon Dioxide 32 BUN 12 Creatinine 0.54 L Glucose 120 H Calcium 7.9 L Liver Function 02/08/22 Range/Units 07:10 Total Bilirubin 4.6 H (0.2-1.0) mg/dl AST 309 H (13-39) U/L ALT 610 H (7-52) U/L Alkaline Phosphatase 316 H (34-104) U/L Albumin 2.9 L (3.4-5.0) gm/dl Urine 02/08/22 Range/Units Unknown Urine Color Dark Yellow Urine Appearance Clear (Clear) Urine pH 7.0 (4.5-7.5) Ur Specific [place] 1.018 (1.000-1.030) Urine Protein Trace H (Negative) Urine Glucose (UA) Negative (Negative) Diagnostic Findings Chest X-Ray 02/07/22 14:43 XR chest 1V portable CLINICAL HISTORY: Vomiting, weakness TECHNIQUE: Single frontal radiograph of the chest was obtained. Comparison: Comparison is made to chest radiograph 01/26/2022 FINDINGS: No lines and tubes are seen. The cardiomediastinal silhouette is normal. Linear densities seen in the right lower lung. No evidence of pleural effusion or pneumothorax. No pneumoperitoneum is seen. IMPRESSION: No acute chest disease. ACT 112: Negative or not required by law. Electronically signed by: Ernesto Smith M.D. 02/07/2022 3:[address] 02/07/22 15:18 CT chest diagnostic wo con CLINICAL HISTORY: esoph stent placed TECHNIQUE: Multidetector row helical CT of the chest was performed. Coronal and sagittal reformations were obtained. Automated dose lowering techniques and/or adjustment according to patient size were utilized for this exam. Comparison: Comparison is made to chest radiograph 02/07/2022 FINDINGS: Lungs and pleura: Atelectasis versus scarring is seen in the dependent portions of the lungs. Heart and pericardium: Heart size is normal. No pericardial effusion. Vessels: Unremarkable. Mediastinum and chi: The esophagus is distended with enteric contrast. An esophageal stent is seen with passage of oral contrast into the stomach. Chest wall and lower neck: Unremarkable. Abdomen: For findings below the diaphragm, please refer to CT of the abdomen dated the same. Contrast is seen to pass normally into the stomach. Thickening of the distal esophagus and gastric wall is again seen. Bones: Unremarkable. IMPRESSION: No evidence of metastatic disease above the thorax. There is satisfactory passage of contrast through a esophageal stent. ACT 112: Negative or not required by law. Electronically signed by: Ernesto Smith M.D. 02/07/2022 4:48 PM Abdomen/Pelvis CT 02/07/22 15:37 CT abd pelvis wo con CLINICAL HISTORY: poss obstruction TECHNIQUE: Helical axial images of the abdomen and pelvis were obtained. Automated dose lowering techniques and/or adjustment according to patient size were utilized for this exam. This exam was performed without intravenous contrast. CT DOSE: 1041.88 mGy.cm COMPARISON: Comparison is made to CT abdomen pelvis 01/02/2022 FINDINGS: Lower chest: No acute abnormality Liver: Unremarkable. No focal lesions are seen. Gallbladder and biliary tree: The gallbladder contents are hyperdense which may represent vicarious excretion of contrast. There is prominence of the gallbladder wall measuring approximately 3.5 mm. No intra- or extrahepatic biliary ductal dilation. Pancreas: Unremarkable, no focal lesions. Spleen: Unremarkable. Adrenals: Unremarkable. Kidneys and ureters: Perinephric stranding is noted bilaterally. Bladder: Unremarkable. Reproductive organs: Prostatic calcifications are seen which may represent prior hemorrhage or granulomatous disease. Bowel: Diverticulosis is seen without evidence of diverticulitis. The appendix is normal. Contrast material is noted to pass freely through an esophageal stent. The gastric wall is thickened. Lymph nodes Retroperitoneal: Numerous enlarged lymph nodes are seen measuring up to 17 mm in short axis. Jolene hepatis nodes are also seen measuring up to 11 mm. There is a retroperitoneal node measuring 31 x 37 mm, stable to minimally enlarged from prior exam, which may also represent an enlarged retroperitoneal node. Pelvic: Unremarkable. Mesenteric: Subcentimeter lymph nodes are noted. Peritoneum: Fat stranding is seen in the upper abdomen particularly around the stomach. Vessels: Unremarkable. Abdominal wall: Unremarkable. Bones: Unremarkable. IMPRESSION: 1. Prominence of the gallbladder wall which is partially visualized with intraluminal vicarious contrast. Clinical correlation for acute cholecystitis is recommended. 2. Interval placement of esophageal stent with satisfactory passage of contrast into the stomach. Thickening of the wall of the esophagus and proximal stomach is again seen. Numerous retroperitoneal lymph nodes are seen, enlarged from prior exam, concerning for metastatic disease. Subcentimeter mesenteric nodes are also seen. ACT 112: Negative or not required by law. Electronically signed by: Ernesto Smith M.D. 02/07/2022 4:41 PM Gallbladder Ultrasound 02/07/22 16:46 ABDOMINAL ULTRASOUND, RIGHT UPPER QUADRANT HISTORY: Elevated LFTs.. COMPARISON: Abdomen and pelvis CT 02/07/2022. FINDINGS: Pancreas: The pancreatic head and tail are obscured by overlying bowel gas. The remaining portions of the pancreas are within normal limits. Liver: There are scattered hypoechoic lesions seen within the liver with the 2 largest within the right hepatic lobe measuring 4.5 and 2.7 cm. The main portal vein is patent and demonstrate normal direction of flow. There is mild periportal edema again noted. There is mild intrahepatic bile duct dilatation. Gallbladder: No gallbladder wall thickening. No gallstones. CBD: 5 mm. Right kidney: No hydronephrosis. IMPRESSION: 1. Multiple scattered hypoechoic lesions within the liver consistent with metastatic disease. Dominant lesion measures 4.5 cm. 2. Normal gallbladder. No gallstones. ACT 112: Negative or not required by law. Electronically signed by: Toney Rodney M.D. 02/07/2022 7:12 PM Cholangiopancreatography MRI 02/07/22 19:22 MRCP CLINICAL HISTORY: Elevated bilirubin, metastatic disease. Evaluate for obstruction. TECHNIQUE: Utilizing a 1.5 Yojana magnet and dedicated coil, multiplanar, multiecho imaging of the upper abdomen was performed utilizing heavily T2 weighted pulsing sequences without IV contrast. COMPARISON STUDY: CT of the abdomen and pelvis January 02, 2022 and February 07, 2022 at 4:09 PM. Right upper quadrant ultrasound February 07, 2022. FINDINGS: Exam is mildly compromised by motion artifact. Liver morphology is normal. There are innumerable T2 hyperintense hepatic lesions which measure up to approximately 2 cm. There is no significant intra or extrahepatic biliary ductal dilatation. No common bile duct calculi are identified. Note is made of apparent extrinsic compression upon the main portal vein shown on axial image 13 of 30. There may be associated extrinsic compression upon the common hepatic duct. This could be due to lymphadenopathy. In addition, there is possible extrinsic compression upon the mid and distal common bile duct. There is no pancreatic ductal dilatation. Susceptibility artifact from the esophageal stent is noted. This appears well-positioned. Distal esophageal and proximal gastric wall thickening represents the known malignancy. There is extensive abdominal lymphadenopathy. A periceliac node measures 2.4 x 2.8 cm. There is no hydronephrosis. IMPRESSION: 1. No significant biliary ductal dilatation. However, apparent extrinsic compression upon the common hepatic and common bile ducts, as described above. This could be due to adjacent lymphadenopathy. ERCP might be considered. 2. Innumerable hepatic lesions measuring up to 2 cm. These are consistent with metastases. 3. Distal esophageal and proximal gastric mass consistent with known primary with pathologic lymphadenopathy. Distal esophageal stent in place. ACT 112: Negative or not required by law. Electronically signed by: Benjamin Blancas M.D. 02/08/2022 8:49 AM
--- NOTE | 2022-02-08 15:54 | Communication Note ---
Date of Service: February 08, 2022 I discussed Mr. Torres's medical condition with the [facility] Hospitalist, Nancy Pearson PA-C. I was able to see this patient during one of his last ED admissions and was able to have a palliative discussion with him. Today, I visited with him to have a more palliative focused conversation. In short, this unfortunate individual is a 51 y/o with poorly differentiated esophageal cancer that was diagnosed in December. He just underwent an EGD and stent placement of stenotic esophagus secondary to mass on 02/06/2022 due to intractable N/V. He has been to the ED three times over the past few weeks for the same symptoms - I saw him on 01/25 in the ED. From a goals of care standpoint; last admission, Mr. Torres was clear that he would want to be DNR/DNI. He is uncertain if he would like to pursue aggressive treatment measures at this point, but would like to meet with the oncologist to determine treatment options before making a full decision regarding aggressive vs. conservative measures. The patient is due to have a PET scan on Sunday 02/11; thereafter meeting with Dr. Centeno to discuss his treatment options in depth. His cancer appears to have progressed per review of his imaging with multiple scattered hypoechoic lesions within the liver consistent with metastatic disease which is progressive from two weeks ago. Dominant lesion measures 4.5 cm. GI met with him today to discuss another stent placed s/p MRCP. He is NPO and still deciding if he wants the stent. I asked Mr. Torres if he was fearful of the dying process and he stated that he is not; however, does not want to struggle with symptoms affecting his quality of life. 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 He stated that if his living time was limited; he would want to remain at home surrounded by loved ones rather than returning to the hospital for continued aggressive treatment. We discussed hospice and what it entails. 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 His uncle has offered to care for him towards end of life. I did reach out via [employer] to GARRETT Smiley who is one of the palliative providers at [facility]; she was able to secure an appt for him via telemedicine for a formal palliative medicine consultation on Friday02/12/22 at 1PM. I also reached out to Dr. Centeno via TT to inform him of my previous conversations with the patient. From a symptom management standpoint; the patient feels better than yesterday after rehydration. Would recommend scheduled Zofran ODT at discharge for intractable nausea. Palliative Performance Scale: 50%. All of the above was discussed with Nancy Pearson PA-C. This was not a charged/billable visit.
--- NOTE | 2022-02-08 15:54 | Electrocardiogram Report ---
Test Reason : Blood Pressure : / mmHG Vent. Rate : 070 BPM Atrial Rate : 070 BPM P-R Int : 142 ms QRS Dur : 090 ms QT Int : 442 ms P-R-T Axes : 058 -16 -05 degrees QTc Int : 477 ms Normal sinus rhythm Nonspecific ST abnormality Abnormal ECG When compared with ECG of 07-FEB-2022 14:57, No significant change was found Confirmed by Christopher Snatos ([id number]) on 02/08/2022 3:54:03 PM Referred By: REFERRED SELF Confirmed By:Christopher Santos
[2022-02-08] MEDS ORDERED: INDOMETHACIN 50 MG SUPP PR ONE (16:12)
[2022-02-08] MEDS ORDERED: SUCCINYLCHOLINE CHLORIDE 20 MG/ML 10 ML VIAL IV ONE (16:31)
[2022-02-08] MEDS ORDERED: ROCURONIUM BROMIDE 10 MG/ML 5 ML VIAL IV ONE (16:31)
[2022-02-08] MEDS ORDERED: LIDOCAINE 2% MPF LOCAL 5 ML VIAL INFIL ONE (16:31)
[2022-02-08] MEDS ORDERED: PROPOFOL IV EMULSION 10 MG/ML 20 ML VIAL IV ONE (16:31)
[2022-02-08] MEDS ORDERED: ONDANSETRON INJ 2 MG/ML 2 ML VIAL ONE (16:31)
--- NOTE | 2022-02-08 17:20 | Operative Report ---
Post Operative Report Pre & Post Diagnosis Operation Date: 02/08/22 08:25 Pre-Op Diagnosis: Esophageal cancer status post esophageal stenting. Post-Op Diagnosis: Esophageal cancer status post esophageal stenting. I identified the patient and participated in the time-out.: Yes Procedure Operation Date: 02/08/22 08:25 Actual Procedures p Esophagogastroduodenoscopy, endoscopic retrograde cholangiopancreatography. - Ken Ruiz MD Surgeon Ken Ruiz MD Test Carrier None Estimated Blood Loss 0 Findings See Below (Esophageal stent partially migrated to the stomach, this was pulled back, ERCP could not be perfromed as the scope could not pass through the stent.) Specimens None Description of Procedure EGD I attest to the content of the Intraoperative Record and any orders documented therein. Any exceptions are noted below.
--- NOTE | 2022-02-08 17:23 | Gastroenterology Progress Note ---
Date of Service February 08, 2022 Assessment & Plan Admission and Anticipated Discharge Date Admission Date: February 07, 2022 Subjective I discussed with the patient after the procedure the current situation and the options to help with biliary decompression including [place] [facility] [place] or repeat ERCP with smaller scope however he declined. He is really interested in comfort care and hospice care at this time and does not want any more interventions. Results & Data ([facility]) Vital Signs (Past 12 Hours) Vital Signs Temp Pulse Resp BP Pulse Ox O2 Del Method 02/08/22 14:50 36.8 C 71 18 119/81 95 Room Air 02/08/22 07:10 36.8 C 71 18 119/73 93 Room Air
--- NOTE | 2022-02-08 17:35 | GI REPORT ---
Patient Name: Georges Torres Procedure Date: 02/08/2022 3:59 PM Date of : 1970 Admit Type: Inpatient Age: 51 Gender: Male Attending MD: Ken Ruiz MD Procedure: Upper GI endoscopy Providers: Ken Ruiz MD Referring MD: Shaquille Quesada Md Indications: Nausea with vomiting Medicines: General Anesthesia Complications: No immediate complications. Estimated Blood Loss: Estimated blood loss: none. Procedure: Pre-Anesthesia Assessment: - Prior to the procedure, a History and Physical was performed, and patient medications, allergies and sensitivities were reviewed. The patient's tolerance of previous anesthesia was reviewed. - The risks and benefits of the procedure and the sedation options and risks were discussed with the patient. All questions were answered and informed consent was obtained. - Patient identification and proposed procedure were verified prior to the procedure by the physician and the nurse. The procedure was verified in the procedure room. - Pre-procedure physical examination revealed no contraindications to sedation. After obtaining informed consent, the endoscope was passed under direct vision. Throughout the procedure, the patient's blood pressure, pulse, and oxygen saturations were monitored continuously. The Endoscope was introduced through the mouth, and advanced to the second part of duodenum. The upper GI endoscopy was accomplished without difficulty. The patient tolerated the procedure well. Findings: An esophageal stent was found in the lower third of the esophagus which had migrated down to the stomach. The StentFix clip is not attached to the mucosa. The stent was pulled back to the appropriate position. There was severe resistance to scope passage due to tight tumor. A TTS dilator was passed through the scope. Dilation with a 13.5-14.5-15.5 mm balloon dilator was performed to 15 mm under fluoroscopic guidance. I personally interpreted the fluoroscopy images. Despite this balloon dilation, the duodenoscope could not pass through the stent hence the ERCP procedure could not be performed. The entire examined stomach was normal. The duodenal bulb and second portion of the duodenum were normal. Impression: - Pre-existing esophageal stent partially migrated to the stomach. This was repositioned again. Stent lumen dilated to 15 mm however still would not accommodate passage of the duodenoscope hence ERCP not performed. - Normal stomach. - Normal duodenal bulb and second portion of the duodenum. - No specimens collected. Recommendation: - Return patient to [facility] for [facility] care. - Consider transfer to tertiary care center for IR guided PTC drainage of the biliary tree. COMMENT: I highly suspect the stent would migrate back to the stomach and patient may eventually need a feeding tube placed. Ken Ruiz MD 02/08/2022 5:35:28 PM This report has been signed electronically. Note Initiated On: 02/08/2022 3:59 PM Number of Addenda: 0 I attest to the content of the Intraoperative Record and orders documented therein, exceptions below {[id number]}
--- NOTE | 2022-02-08 18:09 | Anesthesiology Progress Note ---
Date of Service February 08, 2022 Anesthesia Post Procedure Vital Signs Vital Signs: Temp Pulse Pulse Pulse Resp BP BP 02/08/22 17:55 71 17 02/08/22 17:45 69 19 02/08/22 17:35 72 19 02/08/22 17:28 35.9 C L 78 16 02/08/22 14:50 36.8 C 71 18 02/08/22 07:10 36.8 C 71 18 02/08/22 02:16 36.9 C 99 H 18 128/79 02/07/22 23:55 36.9 C 77 18 132/79 02/07/22 19:28 63 14 134/85 BP Pulse Ox O2 Del Method O2 Flow Rate 02/08/22 17:55 126/81 96 Oxymask 5 02/08/22 17:45 127/81 100 Oxymask 5 02/08/22 17:35 133/83 100 Oxymask 5 02/08/22 17:28 130/87 98 Oxymask 5 02/08/22 14:50 119/81 95 Room Air 02/08/22 07:10 119/73 93 Room Air 02/08/22 02:16 95 Room Air 02/07/22 23:55 95 Room Air 02/07/22 19:28 97 Room Air Transfer of Care Handoff Completed per policy Notes Mental Status: alert / awake / arousable Patient Amnestic to Procedure: Yes Nausea / Vomiting: adequately controlled Pain: adequately controlled Airway Patency, RR, SpO2: stable & adequate BP & HR: stable & adequate Hydration State: stable & adequate Anesthetic Complications: no major complications apparent and Pt Satisfied with anesthetic care
--- NOTE | 2022-02-08 18:09 | Fluoroscopy Report ---
[place] ERCP biliary ductal CLINICAL HISTORY: Esophageal stent. Esophageal mass. COMPARISON STUDY: Chest CT 02/07/2022. FLUOROSCOPY TIME: 2 minutes and 48 seconds. FINDINGS: 14 fluoroscopic spot images of the upper abdomen were submitted for review. There is an ind welling distal esophageal/gastric stent. Balloon dilatation was performed. Contrast was injected thro ugh the stent which demonstrates patency. IMPRESSION: Fluoroscopic assistance provided for a balloon dilatation of the indwelling esophageal/ga stric stent. ACT 112: Negative or not required by law. Electronically signed by: Toney Rodney M.D. 02/08/2022 6:07 PM
[2022-02-08 19:36] LABS: Hematocrit (blood only) 25.7 % (40.1-51.0); Hemoglobin 8.2 g/dl (14.0-18.0); Mean Corpuscular Hemoglobin 24.5 pg (25.0-34.0); Mean Corpuscular Hgb Conc 31.9 g/dL (32.0-36.0); Mean Corpuscular Volume 76.7 fL (80.0-100.0); Mean Platelet Volume 10.8 fL (9.4-12.4); Platelet Count 259 K/uL (130-400); RDW Coefficient of Variation 15.6 % (11.5-14.5); RDW Standard Deviation 42.1 fL (36.4-46.3); Red Blood Count 3.35 M/uL (4.63-6.08); White Blood Count 14.02 K/ul (4.8-10.8)
[2022-02-08 19:55] LABS: BUN Creatinine Ratio 22.4 (10-20); Calcium 8.3 mg/dl (8.5-10.1); Creatinine Clr Calc Pharmacy 174.9 ml/min; Est GFR (African American) 134.9 ml/min; Est GFR (Non-African American) 116.4 ml/min; Potassium 3.3 mmol/L (3.5-5.1)
[2022-02-09] MEDS ORDERED: POTASSIUM CHLORIDE CRTAB 20 MEQ TABCR PO STA (02:09)
--- NOTE | 2022-02-09 07:46 | Hospitalist Progress Note ---
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 Nausea and vomiting Esophageal adenocarcinoma status post stent placement via EGD on 02/06/2022, currently undergoing staging with METS to lymph nodes and now liver Transaminitis Leukocytosis Patient underwent EGD with stent placement 02/06. Since procedure has been unable to tolerate anything orally. Has new onset transaminitis with hyperbilirubinemia of 4.3, AST 322, ALT 75 and alk phos 324 Also has elevated WBC at 17.42k CT abdomen pelvis concerning for possible acute cholecystitis GB US:Multiple scattered hypoechoic lesions within the liver consistent with metastatic disease. Dominant lesion measures 4.5 cm. MRCP with no significant biliary ductal dilatation. However, apparent extrinsic compression upon the common hepatic and common bile ducts, as described above. This could be due to adjacent lymphadenopathy. ERCP might be considered. Innumerable hepatic lesions measuring up to 2 cm. These are consistent with metastases. 3. Distal esophageal and proximal gastric mass consistent with known primary with pathologic lymphadenopathy. Distal esophageal stent in place. Gastroenterology - recommended ERCP After ERCP, discussed findings with the GI attending, Dr. Ruiz.- Pre- existing esophageal stent partially migrated to the stomach. This was repositioned again. Stent lumen dilated to 15 mm however still would not accommodate passage of the duodenoscope hence ERCP not performed. Patient okay to start clear liquid diet. Patient is interested in possible hospice/ palliative care, and does not wish for any more intervention. 02/09 - patient feels well, is tolerating p.o. clear liquid diet. Hemoglobin 6.9 discussed possible blood transfusion, patient agreed and 1 unit was transfused. Potassium magnesium also replaced. Patient would like to be discharged home as he is making caregiver for his mom. He has appointment with Dr. Centeno (oncology), and PET scan scheduled for Friday. Goals of care Lissett Jeanette [facility] also met w/ the pt for goals of care discussion due to poorly differentiated metastatic cancer. Remains DNR/DNI; uncertain about whether or not he wants to pursue aggressive treatment. Wants to meet with oncologist and undergo PET scan next week to discuss prognosis more fully. Most concerned about maintaining a certain level of comfort and quality of life during this time. Outpatient palliative appt via telemedicine made for Friday02/12/22 at 1 pm for further discussion. Please see Lissett's note for further details of discussion. Hypokalemia Due to vomiting, poor intake Replacing Microcytic anemia Likely in setting of cancer, h/o GI bleeding Hgb downtrending to 7.6 likely dilutional effect, bleeding. s/p endoscopy 02/09 - Hemoglobin 6.9 discussed possible blood transfusion, patient agreed and 1 unit was transfused. EKG change lateral depressions, trop negative, denies chest pain Echo obtained with EF 55%, grade 1 diastolic dysfunction HTN bp stable continue coreg T2DM A1c 7.1 on 09/2021, current 6.2% Monitor blood sugars, given poor intake will not place on coverage DVT ppx:SCDS DNR/DNI Dispo: Plan to DC home PCP: Brigid Hu Admission and Anticipated Discharge Date Admission Date: February 07, 2022 Subjective Patient seen for follow-up of nausea vomiting, electrolyte abnormalities, in the setting of newly diagnosed esophageal cancer Patient underwent esophageal stent placement, and then another endoscopy yesterday - stent was repositioned He is currently feeling well overall, however Hgb down at 6.9 - discussed blood transfusion, patient then agreed and 1 unit was transfused. In addition potassium and magnesium were replaced. Patient reports tolerating p.o. liquid diet. He would like to be discharged, as he is the main caregiver to his mother. Patient has an appointmentPET scan on Friday, and follow-up appointment scheduled with his oncologist, Dr. Centeno. Denies any fevers, chills, chest pain, shortness of breath, denies abdominal pain nausea or vomiting. Review of Systems Review of Systems: All systems reviewed & are unremarkable except as noted in Subjective Physical Exam Physical Exam: General Appearance:Moderately built and nourished, no apparent distress Head: normocephalic, Atraumatic Eyes: normal inspection, EOMI, +Icteric Neck: supple, Trachea midline Respiratory/Chest: Normal breath sounds, CTA, No accessory muscle use Cardiovascular: S1, S2, No murmur Abdomen/GI:Soft, Non tender, Bowel sounds present, no guarding or rigidity Extremities/Musculoskeletal:normal inspection, no edema Neurologic/Psych:AAOX3, grossly no focal neurological deficits Skin: normal color, warm,+ jaundice Results & Data Results & Data ([facility]) Vital Signs (Past 12 Hours) Vital Signs Temp Pulse Resp BP Pulse Ox O2 Del Method 02/09/22 03:14 37.4 C 74 16 122/75 91 Room Air 02/08/22 22:07 37.6 C H 66 16 126/74 94 02/08/22 20:43 37 C 68 18 123/74 94 Laboratory Results 02/09/22 02/09/22 02/09/22 Range/Units 08:20 08:20 08:17 WBC 10.59 (4.8-10.8) K/ul RBC 2.87 L (4.63-6.08) M/uL Hgb 6.9 L* (14.0-18.0) g/dl Hct 21.6 L (40.1-51.0) % MCV 75.3 L (80.0-100.0) fL MCH 24.0 L (25.0-34.0) pg MCHC 31.9 L (32.0-36.0) g/dL RDW Std Deviation 42.2 (36.4-46.3) fL RDW Coeff of Kong 15.8 H (11.5-14.5) % Plt Count 202 (130-400) K/uL MPV 11.0 (9.4-12.4) fL Sodium 132 L (136-145) mmol/L Potassium 3.0 L (3.5-5.1) mmol/L Chloride 94 L (98-107) mmol/L Carbon Dioxide 30 (21-32) mmol/L Anion Gap 8 (3-11) BUN 13 (6-23) mg/dl Creatinine 0.58 L (0.6-1.4) mg/dl Est Cr Clr Drug Dosing 174.9 ml/min Est GFR ( Amer) 134.9 ml/min Est GFR (Non-Af Amer) 116.4 ml/min BUN/Creatinine Ratio 22.4 H (10-20) Glucose 101 H (70-99(Fasting)) mg/dl POC Glucose 117 H (70-99) mg/dl Calcium 7.9 L (8.5-10.1) mg/dl Phosphorus 2.5 (2.5-4.9) mg/dl Magnesium 1.6 L (1.7-2.4) mg/dl Total Bilirubin 4.8 H (0.2-1.0) mg/dl AST 276 H (13-39) U/L ALT 570 H (7-52) U/L Alkaline Phosphatase 341 H (34-104) U/L Total Protein 4.6 L (6.0-8.3) gm/dl Albumin 2.7 L (3.4-5.0) gm/dl Globulin 1.9 L (2.5-4.0) gm/dl Albumin/Globulin Ratio 1.4 (0.9-2) 02/08/22 02/08/22 02/08/22 Range/Units 20:34 18:49 18:49 WBC 14.02 H (4.8-10.8) K/ul RBC 3.35 L (4.63-6.08) M/uL Hgb 8.2 L (14.0-18.0) g/dl Hct 25.7 L (40.1-51.0) % MCV 76.7 L (80.0-100.0) fL MCH 24.5 L (25.0-34.0) pg MCHC 31.9 L (32.0-36.0) g/dL RDW Std Deviation 42.1 (36.4-46.3) fL RDW Coeff of Kong 15.6 H (11.5-14.5) % Plt Count 259 (130-400) K/uL MPV 10.8 (9.4-12.4) fL Sodium 134 L (136-145) mmol/L Potassium 3.3 L (3.5-5.1) mmol/L Chloride 95 L (98-107) mmol/L Carbon Dioxide 32 (21-32) mmol/L Anion Gap 7 (3-11) BUN 13 (6-23) mg/dl Creatinine 0.58 L (0.6-1.4) mg/dl Est Cr Clr Drug Dosing 174.9 ml/min Est GFR ( Amer) 134.9 ml/min Est GFR (Non-Af Amer) 116.4 ml/min BUN/Creatinine Ratio 22.4 H (10-20) Glucose 106 H (70-99(Fasting)) mg/dl POC Glucose 118 H (70-99) mg/dl Calcium 8.3 L (8.5-10.1) mg/dl Phosphorus (2.5-4.9) mg/dl Magnesium (1.7-2.4) mg/dl Total Bilirubin (0.2-1.0) mg/dl AST (13-39) U/L ALT (7-52) U/L Alkaline Phosphatase (34-104) U/L Total Protein (6.0-8.3) gm/dl Albumin (3.4-5.0) gm/dl Globulin (2.5-4.0) gm/dl Albumin/Globulin Ratio (0.9-2) 02/08/22 02/08/22 02/08/22 Range/Units 18:42 17:36 14:06 WBC (4.8-10.8) K/ul RBC (4.63-6.08) M/uL Hgb (14.0-18.0) g/dl Hct (40.1-51.0) % MCV (80.0-100.0) fL MCH (25.0-34.0) pg MCHC (32.0-36.0) g/dL RDW Std Deviation (36.4-46.3) fL RDW Coeff of Kong (11.5-14.5) % Plt Count (130-400) K/uL MPV (9.4-12.4) fL Sodium (136-145) mmol/L Potassium 3.3 L (3.5-5.1) mmol/L Chloride (98-107) mmol/L Carbon Dioxide (21-32) mmol/L Anion Gap (3-11) BUN (6-23) mg/dl Creatinine (0.6-1.4) mg/dl Est Cr Clr Drug Dosing ml/min Est GFR ( Amer) ml/min Est GFR (Non-Af Amer) ml/min BUN/Creatinine Ratio (10-20) Glucose (70-99(Fasting)) mg/dl POC Glucose 110 H 102 H (70-99) mg/dl Calcium (8.5-10.1) mg/dl Phosphorus (2.5-4.9) mg/dl Magnesium (1.7-2.4) mg/dl Total Bilirubin (0.2-1.0) mg/dl AST (13-39) U/L ALT (7-52) U/L Alkaline Phosphatase (34-104) U/L Total Protein (6.0-8.3) gm/dl Albumin (3.4-5.0) gm/dl Globulin (2.5-4.0) gm/dl Albumin/Globulin Ratio (0.9-2) 02/08/22 Range/Units 12:19 WBC (4.8-10.8) K/ul RBC (4.63-6.08) M/uL Hgb (14.0-18.0) g/dl Hct (40.1-51.0) % MCV (80.0-100.0) fL MCH (25.0-34.0) pg MCHC (32.0-36.0) g/dL RDW Std Deviation (36.4-46.3) fL RDW Coeff of Kong (11.5-14.5) % Plt Count (130-400) K/uL MPV (9.4-12.4) fL Sodium (136-145) mmol/L Potassium (3.5-5.1) mmol/L Chloride (98-107) mmol/L Carbon Dioxide (21-32) mmol/L Anion Gap (3-11) BUN (6-23) mg/dl Creatinine (0.6-1.4) mg/dl Est Cr Clr Drug Dosing ml/min Est GFR ( Amer) ml/min Est GFR (Non-Af Amer) ml/min BUN/Creatinine Ratio (10-20) Glucose (70-99(Fasting)) mg/dl POC Glucose 133 H (70-99) mg/dl Calcium (8.5-10.1) mg/dl Phosphorus (2.5-4.9) mg/dl Magnesium (1.7-2.4) mg/dl Total Bilirubin (0.2-1.0) mg/dl AST (13-39) U/L ALT (7-52) U/L Alkaline Phosphatase (34-104) U/L Total Protein (6.0-8.3) gm/dl Albumin (3.4-5.0) gm/dl Globulin (2.5-4.0) gm/dl Albumin/Globulin Ratio (0.9-2) Medications Administered Current Inpatient Medications Acetaminophen (Acetaminophen 325 Mg Tab) 650 mg PO Q4H PRN PRN Reason: pain/fever Stop: 03/09/22 20:03 Al Hydrox/Mg Hydrox/Simethicone (Aluminum/Magnesium Susp 30 Ml Udc) 30 ml PO Q6H PRN PRN Reason: Dyspepsia Stop: 03/09/22 20:03 Carvedilol (Carvedilol 12.5 Mg Tab) 12.5 mg PO QAM LONG Stop: 03/10/22 08:59 Last Admin: 02/08/22 09:15 Dose: 12.5 mg Dextrose (Dextrose 50% 50 Ml Syringe) 25 - 50 ml IV UD PRN; Protocol PRN Reason: Hypoglycemia Protocol Stop: 03/09/22 20:03 Glucagon (Glucagon For Inj 1 Mg Vial) 1 mg SQ UD PRN; Protocol PRN Reason: Hypoglycemia Protocol Stop: 03/09/22 20:03 Glucose (Glucose 40% Gel 15 Gm Tube) 15 - 30 gm PO UD PRN; Protocol PRN Reason: Hypoglycemia Protocol Stop: 03/09/22 20:03 Glucose (Glucose 10 Tab/Tube) 4 - 8 tab PO UD PRN; Protocol PRN Reason: Hypoglycemia Treatment Stop: 03/09/22 20:03 Piperacillin Sod/Tazobactam (Sod 3.375 gm/ Dextrose) 115 mls @ 28.75 mls/hr IV Q8H LONG; Protocol Stop: 02/18/22 00:00 Last Infusion: 02/09/22 03:38 Dose: Infused Promethazine HCl 12.5 mg/ (Sodium Chloride) 50.5 mls @ 202 mls/hr IV Q6H PRN PRN Reason: Nausea And Vomiting Stop: 03/09/22 20:03 Last Infusion: 02/08/22 20:15 Dose: Infused Miscellaneous (Carbohydrates For Hypoglycemia ) 15 - 30 gm PO UD PRN PRN Reason: Hypoglycemia Protocol Stop: 03/09/22 20:03 Pantoprazole Sodium (Pantoprazole 40 Mg Tab) 40 mg PO DAILY LONG Stop: 03/10/22 08:59 Last Admin: 02/08/22 09:15 Dose: 40 mg Polyethylene Glycol (Polyethylene (Miralax) 17 Gm Pack) 17 gm PO DAILY PRN PRN Reason: Constipation Stop: 03/09/22 20:03
[2022-02-09] MEDS: carvediloL 12.5 MG TAB PO SCH (07:55)
[2022-02-09] MEDS: PANTOprazole 40 MG TAB PO SCH ×2 (07:55→13:51)
[2022-02-09] MEDS: PIPERACILLIN/TAZOBACTAM 3.375 GM in DEXTROSE 5% 100 ML IV SCH ×3 (07:55→23:55)
[2022-02-09 09:23] LABS: BUN Creatinine Ratio 22.4 (10-20); Calcium 7.9 mg/dl (8.5-10.1); Creatinine Clr Calc Pharmacy 174.9 ml/min; Est GFR (African American) 134.9 ml/min; Est GFR (Non-African American) 116.4 ml/min
[2022-02-09 09:24] LABS: Albumin Globulin Ratio 1.4 (0.9-2); Albumin Level 2.7 gm/dl (3.4-5.0); Bilirubin,Total 4.8 mg/dl (0.2-1.0); Globulin 1.9 gm/dl (2.5-4.0); Magnesium 1.6 mg/dl (1.7-2.4); Phosphorus 2.5 mg/dl (2.5-4.9); Total Protein 4.6 gm/dl (6.0-8.3)
[2022-02-09 09:28] LABS: Hematocrit (blood only) 21.6 % (40.1-51.0); Hemoglobin 6.9 g/dl (14.0-18.0); Mean Corpuscular Hgb Conc 31.9 g/dL (32.0-36.0); Mean Corpuscular Volume 75.3 fL (80.0-100.0); Platelet Count 202 K/uL (130-400); RDW Coefficient of Variation 15.8 % (11.5-14.5); RDW Standard Deviation 42.2 fL (36.4-46.3); Red Blood Count 2.87 M/uL (4.63-6.08); White Blood Count 10.59 K/ul (4.8-10.8)
[2022-02-09] MEDS ORDERED: MAGNESIUM SULFATE / D5W 1 GM/100 ML BAG IV ONE (10:00)
[2022-02-09] MEDS ORDERED: SODIUM CHLORIDE 0.9% 250 ML IV PRN (10:21)
[2022-02-09] MEDS ORDERED: POTASSIUM CHLORIDE PWD 20 MEQ PACK PO STA (10:28)
[2022-02-09] MEDS: POTASSIUM CHLORIDE / WTR 10 MEQ/100 ML PLCT IV SCH ×2 (10:45→12:12)
[2022-02-09 23:16] LABS: BUN Creatinine Ratio 18.2 (10-20); Calcium 7.8 mg/dl (8.5-10.1); Creatinine Clr Calc Pharmacy 153.7 ml/min; Est GFR (African American) 127.9 ml/min; Est GFR (Non-African American) 110.4 ml/min; Potassium 3.1 mmol/L (3.5-5.1)
[2022-02-10] MEDS ORDERED: POTASSIUM CHLORIDE CRTAB 20 MEQ TABCR PO STA (01:49)
[2022-02-10] MEDS ORDERED: POTASSIUM CHLORIDE 20 MEQ/15 ML UDC PO STA (02:00)
[2022-02-10 07:03] LABS: Hematocrit (blood only) 25.2 % (40.1-51.0); Hemoglobin 8.3 g/dl (14.0-18.0); Mean Corpuscular Hemoglobin 25.5 pg (25.0-34.0); Mean Corpuscular Hgb Conc 32.9 g/dL (32.0-36.0); Mean Corpuscular Volume 77.5 fL (80.0-100.0); Mean Platelet Volume 10.7 fL (9.4-12.4); Platelet Count 209 K/uL (130-400); RDW Coefficient of Variation 16.1 % (11.5-14.5); RDW Standard Deviation 44.6 fL (36.4-46.3); Red Blood Count 3.25 M/uL (4.63-6.08); White Blood Count 8.64 K/ul (4.8-10.8)
[2022-02-10 07:33] LABS: BUN Creatinine Ratio 18.6 (10-20); Calcium 7.8 mg/dl (8.5-10.1); Est GFR (Non-African American) 115.6 ml/min; Potassium 3.1 mmol/L (3.5-5.1)
[2022-02-10 07:39] LABS: Albumin Globulin Ratio 1.5 (0.9-2); Albumin Level 2.7 gm/dl (3.4-5.0); Bilirubin,Total 5.9 mg/dl (0.2-1.0); Globulin 1.8 gm/dl (2.5-4.0); Magnesium 1.8 mg/dl (1.7-2.4); Phosphorus 2.4 mg/dl (2.5-4.9); Total Protein 4.5 gm/dl (6.0-8.3)
[2022-02-10] MEDS ORDERED: POTASSIUM CHLORIDE PWD 20 MEQ PACK PO ONE (07:58)
[2022-02-10] MEDS ORDERED: SODIUM CHLORIDE 0.9% 1000ML 500 ML IV ONE (07:59)
--- NOTE | 2022-02-10 08:01 | Hospitalist Progress Note ---
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 Nausea and vomiting Esophageal adenocarcinoma status post stent placement via EGD on 02/06/2022, currently undergoing staging with METS to lymph nodes and now liver Transaminitis Leukocytosis Patient underwent EGD with stent placement 02/06. Since procedure has been unable to tolerate anything orally. Has new onset transaminitis with hyperbilirubinemia of 4.3, AST 322, ALT 75 and alk phos 324 Also has elevated WBC at 17.42k CT abdomen pelvis concerning for possible acute cholecystitis GB US:Multiple scattered hypoechoic lesions within the liver consistent with metastatic disease. Dominant lesion measures 4.5 cm. MRCP with no significant biliary ductal dilatation. However, apparent extrinsic compression upon the common hepatic and common bile ducts, as described above. This could be due to adjacent lymphadenopathy. ERCP might be considered. Innumerable hepatic lesions measuring up to 2 cm. These are consistent with metastases. 3. Distal esophageal and proximal gastric mass consistent with known primary with pathologic lymphadenopathy. Distal esophageal stent in place. Gastroenterology - recommended ERCP After ERCP, discussed findings with the GI attending, Dr. Ruiz.- Pre-existing esophageal stent partially migrated to the stomach. This was repositioned again. Stent lumen dilated to 15 mm however still would not accommodate passage of the duodenoscope hence ERCP not performed. Patient okay to start clear liquid diet. Patient is interested in possible hospice/ palliative care, and does not wish for any more intervention. 02/09 - patient feels well, is tolerating p.o. clear liquid diet. Hemoglobin 6.9 discussed possible blood transfusion, patient agreed and 1 unit was transfused. Potassium magnesium also replaced. Patient would like to be discharged home as he is making caregiver for his mom. He has appointment with Dr. Centeno (oncology), and PET scan scheduled for Friday. Goals of care Lissett Jeanette TUCKER also met w/ the pt for goals of care discussion due to poorly differentiated metastatic cancer. Remains DNR/DNI; uncertain about whether or not he wants to pursue aggressive treatment. Wants to meet with oncologist and undergo PET scan next week to discuss prognosis more fully. Most concerned about maintaining a certain level of comfort and quality of life during this time. Outpatient palliative appt via telemedicine made for Friday02/12/22 at 1 pm for further discussion. Please see Lissett's note for further details of discussion. Hypokalemia Due to vomiting, poor intake Replacing Microcytic anemia Likely in setting of cancer, h/o GI bleeding Hgb downtrending to 7.6 likely dilutional effect, bleeding. s/p endoscopy 02/09 - Hemoglobin 6.9 discussed possible blood transfusion, patient agreed and 1 unit was transfused. EKG change lateral depressions, trop negative, denies chest pain Echo obtained with EF 55%, grade 1 diastolic dysfunction HTN bp stable continue coreg T2DM A1c 7.1 on 09/2021, current 6.2% Monitor blood sugars, given poor intake will not place on coverage DVT ppx:SCDS DNR/DNI Dispo: Plan to DC home PCP: Brigid Hu Admission and Anticipated Discharge Date Admission Date: February 07, 2022 Subjective Patient seen for follow-up of nausea vomiting, electrolyte abnormalities, in the setting of newly diagnosed esophageal cancer Patient underwent esophageal stent placement, and then another endoscopy during this admission - stent was repositioned Yesterday Hgb down at 6.9 - received 1 unit pRBC. Electrolytes replaced. Patient reports tolerating p.o. liquid diet. Patient has an appointmentPET scan on Friday ([facility]), and follow-up appointment scheduled with his oncologist, Dr. Centeno. Denies any fevers, chills, chest pain, shortness of breath, denies abdominal pain nausea or vomiting. Review of Systems Review of Systems: All systems reviewed & are unremarkable except as noted in Subjective Physical Exam Physical Exam: General Appearance:Moderately built and nourished, no apparent distress Head: normocephalic, Atraumatic Eyes: normal inspection, EOMI Neck: supple Respiratory/Chest: Normal breath sounds, CTA, No accessory muscle use Cardiovascular: S1, S2, No murmur Abdomen/GI:Soft, Non tender, Bowel sounds present, no guarding or rigidity Extremities/Musculoskeletal:normal inspection, no edema Neurologic/Psych:AAOX3, speech fluent, answering appropriately, moves extremities Skin: normal color, warm,+ jaundice Results & Data Results & Data ([facility]) Vital Signs (Past 12 Hours) Vital Signs Temp Pulse Pulse Resp BP Pulse Ox O2 Del Method 02/10/22 07:40 36.9 C 66 18 118/80 93 Room Air 02/09/22 21:44 37 C 59 L 18 132/77 95 Laboratory Results 02/10/22 02/10/22 02/09/22 Range/Units 06:35 06:35 22:33 WBC 8.64 (4.8-10.8) K/ul RBC 3.25 L (4.63-6.08) M/uL Hgb 8.3 L (14.0-18.0) g/dl Hct 25.2 L (40.1-51.0) % MCV 77.5 L (80.0-100.0) fL MCH 25.5 (25.0-34.0) pg MCHC 32.9 (32.0-36.0) g/dL RDW Std Deviation 44.6 (36.4-46.3) fL RDW Coeff of Kong 16.1 H (11.5-14.5) % Plt Count 209 (130-400) K/uL MPV 10.7 (9.4-12.4) fL Sodium 132 L 131 L (136-145) mmol/L Potassium 3.1 L 3.1 L (3.5-5.1) mmol/L Chloride 94 L 93 L (98-107) mmol/L Carbon Dioxide 32 33 H (21-32) mmol/L Anion Gap 6 5 (3-11) BUN 11 12 (6-23) mg/dl Creatinine 0.59 L 0.66 (0.6-1.4) mg/dl Est Cr Clr Drug Dosing 172.0 153.7 ml/min Est GFR ( Amer) 134.0 127.9 ml/min Est GFR (Non-Af Amer) 115.6 110.4 ml/min BUN/Creatinine Ratio 18.6 18.2 (10-20) Glucose 107 H 116 H (70-99(Fasting)) mg/dl POC Glucose (70-99) mg/dl Calcium 7.8 L 7.8 L (8.5-10.1) mg/dl Phosphorus 2.4 L (2.5-4.9) mg/dl Magnesium 1.8 (1.7-2.4) mg/dl Total Bilirubin 5.9 H (0.2-1.0) mg/dl AST 257 H (13-39) U/L ALT 524 H (7-52) U/L Alkaline Phosphatase 359 H (34-104) U/L Total Protein 4.5 L (6.0-8.3) gm/dl Albumin 2.7 L (3.4-5.0) gm/dl Globulin 1.8 L (2.5-4.0) gm/dl Albumin/Globulin Ratio 1.5 (0.9-2) Blood Type Antibody Screen Crossmatch 02/09/22 02/09/22 02/09/22 Range/Units 20:36 17:16 12:17 WBC (4.8-10.8) K/ul RBC (4.63-6.08) M/uL Hgb (14.0-18.0) g/dl Hct (40.1-51.0) % MCV (80.0-100.0) fL MCH (25.0-34.0) pg MCHC (32.0-36.0) g/dL RDW Std Deviation (36.4-46.3) fL RDW Coeff of Kong (11.5-14.5) % Plt Count (130-400) K/uL MPV (9.4-12.4) fL Sodium (136-145) mmol/L Potassium (3.5-5.1) mmol/L Chloride (98-107) mmol/L Carbon Dioxide (21-32) mmol/L Anion Gap (3-11) BUN (6-23) mg/dl Creatinine (0.6-1.4) mg/dl Est Cr Clr Drug Dosing ml/min Est GFR ( Amer) ml/min Est GFR (Non-Af Amer) ml/min BUN/Creatinine Ratio (10-20) Glucose (70-99(Fasting)) mg/dl POC Glucose 135 H 132 H 152 H (70-99) mg/dl Calcium (8.5-10.1) mg/dl Phosphorus (2.5-4.9) mg/dl Magnesium (1.7-2.4) mg/dl Total Bilirubin (0.2-1.0) mg/dl AST (13-39) U/L ALT (7-52) U/L Alkaline Phosphatase (34-104) U/L Total Protein (6.0-8.3) gm/dl Albumin (3.4-5.0) gm/dl Globulin (2.5-4.0) gm/dl Albumin/Globulin Ratio (0.9-2) Blood Type Antibody Screen Crossmatch 02/09/22 02/09/22 02/09/22 Range/Units 10:45 08:20 08:20 WBC 10.59 (4.8-10.8) K/ul RBC 2.87 L (4.63-6.08) M/uL Hgb 6.9 L* (14.0-18.0) g/dl Hct 21.6 L (40.1-51.0) % MCV 75.3 L (80.0-100.0) fL MCH 24.0 L (25.0-34.0) pg MCHC 31.9 L (32.0-36.0) g/dL RDW Std Deviation 42.2 (36.4-46.3) fL RDW Coeff of Kong 15.8 H (11.5-14.5) % Plt Count 202 (130-400) K/uL MPV 11.0 (9.4-12.4) fL Sodium 132 L (136-145) mmol/L Potassium 3.0 L (3.5-5.1) mmol/L Chloride 94 L (98-107) mmol/L Carbon Dioxide 30 (21-32) mmol/L Anion Gap 8 (3-11) BUN 13 (6-23) mg/dl Creatinine 0.58 L (0.6-1.4) mg/dl Est Cr Clr Drug Dosing 174.9 ml/min Est GFR ( Amer) 134.9 ml/min Est GFR (Non-Af Amer) 116.4 ml/min BUN/Creatinine Ratio 22.4 H (10-20) Glucose 101 H (70-99(Fasting)) mg/dl POC Glucose (70-99) mg/dl Calcium 7.9 L (8.5-10.1) mg/dl Phosphorus 2.5 (2.5-4.9) mg/dl Magnesium 1.6 L (1.7-2.4) mg/dl Total Bilirubin 4.8 H (0.2-1.0) mg/dl AST 276 H (13-39) U/L ALT 570 H (7-52) U/L Alkaline Phosphatase 341 H (34-104) U/L Total Protein 4.6 L (6.0-8.3) gm/dl Albumin 2.7 L (3.4-5.0) gm/dl Globulin 1.9 L (2.5-4.0) gm/dl Albumin/Globulin Ratio 1.4 (0.9-2) Blood Type O Positive Antibody Screen NEGATIVE Crossmatch See Detail 02/09/22 Range/Units 08:17 WBC (4.8-10.8) K/ul RBC (4.63-6.08) M/uL Hgb (14.0-18.0) g/dl Hct (40.1-51.0) % MCV (80.0-100.0) fL MCH (25.0-34.0) pg MCHC (32.0-36.0) g/dL RDW Std Deviation (36.4-46.3) fL RDW Coeff of Kong (11.5-14.5) % Plt Count (130-400) K/uL MPV (9.4-12.4) fL Sodium (136-145) mmol/L Potassium (3.5-5.1) mmol/L Chloride (98-107) mmol/L Carbon Dioxide (21-32) mmol/L Anion Gap (3-11) BUN (6-23) mg/dl Creatinine (0.6-1.4) mg/dl Est Cr Clr Drug Dosing ml/min Est GFR ( Amer) ml/min Est GFR (Non-Af Amer) ml/min BUN/Creatinine Ratio (10-20) Glucose (70-99(Fasting)) mg/dl POC Glucose 117 H (70-99) mg/dl Calcium (8.5-10.1) mg/dl Phosphorus (2.5-4.9) mg/dl Magnesium (1.7-2.4) mg/dl Total Bilirubin (0.2-1.0) mg/dl AST (13-39) U/L ALT (7-52) U/L Alkaline Phosphatase (34-104) U/L Total Protein (6.0-8.3) gm/dl Albumin (3.4-5.0) gm/dl Globulin (2.5-4.0) gm/dl Albumin/Globulin Ratio (0.9-2) Blood Type Antibody Screen Crossmatch Medications Administered Current Inpatient Medications Acetaminophen (Acetaminophen 325 Mg Tab) 650 mg PO Q4H PRN PRN Reason: pain/fever Stop: 03/09/22 20:03 Al Hydrox/Mg Hydrox/Simethicone (Aluminum/Magnesium Susp 30 Ml Udc) 30 ml PO Q6H PRN PRN Reason: Dyspepsia Stop: 03/09/22 20:03 Carvedilol (Carvedilol 12.5 Mg Tab) 12.5 mg PO QAM LONG Stop: 03/10/22 08:59 Last Admin: 02/09/22 07:55 Dose: 12.5 mg Dextrose (Dextrose 50% 50 Ml Syringe) 25 - 50 ml IV UD PRN; Protocol PRN Reason: Hypoglycemia Protocol Stop: 03/09/22 20:03 Glucagon (Glucagon For Inj 1 Mg Vial) 1 mg SQ UD PRN; Protocol PRN Reason: Hypoglycemia Protocol Stop: 03/09/22 20:03 Glucose (Glucose 40% Gel 15 Gm Tube) 15 - 30 gm PO UD PRN; Protocol PRN Reason: Hypoglycemia Protocol Stop: 03/09/22 20:03 Glucose (Glucose 10 Tab/Tube) 4 - 8 tab PO UD PRN; Protocol PRN Reason: Hypoglycemia Treatment Stop: 03/09/22 20:03 Piperacillin Sod/Tazobactam (Sod 3.375 gm/ Dextrose) 115 mls @ 28.75 mls/hr IV Q8H LONG; Protocol Stop: 02/18/22 00:00 Last Infusion: 02/10/22 03:55 Dose: Infused Promethazine HCl 12.5 mg/ (Sodium Chloride) 50.5 mls @ 202 mls/hr IV Q6H PRN PRN Reason: Nausea And Vomiting Stop: 03/09/22 20:03 Last Infusion: 02/08/22 20:15 Dose: Infused Potassium Chloride (K [place] / Wtr) 10 meq in 100 mls @ 100 mls/hr IV Q1H LONG Stop: 02/10/22 09:59 Sodium Chloride (Nss 1000ml) 500 mls @ 125 mls/hr IV .Q4H ONE Stop: 02/10/22 11:58 Miscellaneous (Carbohydrates For Hypoglycemia ) 15 - 30 gm PO UD PRN PRN Reason: Hypoglycemia Protocol Stop: 03/09/22 20:03 Pantoprazole Sodium (Pantoprazole 40 Mg Tab) 40 mg PO DAILY LONG Stop: 03/10/22 08:59 Last Admin: 02/09/22 13:51 Dose: Not Given Polyethylene Glycol (Polyethylene (Miralax) 17 Gm Pack) 17 gm PO DAILY PRN PRN Reason: Constipation Stop: 03/09/22 20:03 Potassium Chloride (Potassium Chloride Pwd 20 Meq Pack) 40 meq PO ONE ONE Stop: 02/10/22 07:59
[2022-02-10] MEDS: POTASSIUM CHLORIDE / WTR 10 MEQ/100 ML PLCT IV SCH ×2 (08:59→10:24)
[2022-02-10] MEDS: PIPERACILLIN/TAZOBACTAM 3.375 GM in DEXTROSE 5% 100 ML IV SCH (09:00)
[2022-02-10] MEDS: PANTOprazole 40 MG TAB PO SCH (09:02)
[2022-02-10] MEDS: carvediloL 12.5 MG TAB PO SCH (09:06)
--- NOTE | 2022-02-10 11:25 | Discharge Summary ---
Date of Service February 10, 2022 Admission HPI Per Admitting Provider This is a 51-year-old male who has significant past medical history of HTN, T2DM, incomplete right bundle branch block, GERD, history of postop streptococcal glomerulonephritis, newly diagnosed esophageal adenocarcinoma who presents to ED after undergoing EGD and stent placement of stenotic esophagus secondary to mass on 02/06/2022 due to persistent nausea and vomiting. Of significance patient was recently hospitalized on 01/25-01/26 due to inability to tolerate oral intake as well as heme positive stool.He was seen and evaluated by GI and felt that EGD not warranted at the time. Hemoglobin remained stable and he was treated with IV PPI and Pepcid. He was discharged home with gastroenterology follow-up as well as a PET scan scheduled for 02/11 for further staging of cancer. Yesterday he underwent EGD by Dr. Dobbs and found a malignant appearing esophageal stenosis with stent placed. He was discharged to home with a liquid diet for 2 days and omeprazole 40 mg once daily. WHen he went home he continued to have nausea and vomiting; Therefore, he presented to ED. HE generally feels weak. HE is not sure if he had any blood in vomit. HE denies any f/c/s, dizziness, lightheaded, chest pain, sob, cough, uri sx, abd pain, diarrhea, increased urg/freq with urination, melena, hematochezia. In ED patient remained hemodynamically stable. He was found to have elevated bili 4.3, ast 322, alt 755 and alp phose 324. He also was found to have Hypokalemia 3.1, sodium 134, glucose 152, WC 17.42k, H&H 9.7 and 30.7, platelet 341. CT abdomen pelvis revealed prominence of gallbladder wall which was partially visualized. Clinical correlation for acute cholecystitis is recommended. Interval placement of esophageal stent with satisfactory passage of contrast in the stomach. Thickening of the wall the esophagus and proximal stomach is again seen with numerous retroperitoneal lymph nodes enlarged from prior exam concerning for metastatic disease. In ED he received IV antiemetics, IV fluid, IV Zosyn and IV potassium. He denies any smoking, tobacco use, APAP use. +FH of Ca, great grandfather stomach ca, great grandmother had breast cancer. Admission Exam Per Admitting Provider General Appearance:Moderately built and nourished, no apparent distress Head: normocephalic, Atraumatic Eyes: normal inspection, EOMI, +Icteric Neck: supple, Trachea midline Respiratory/Chest: Normal breath sounds, CTA, No accessory muscle use Cardiovascular: S1, S2, No murmur Abdomen/GI:Soft, Non tender, Bowel sounds present, no guarding or rigidity Extremities/Musculoskeletal:normal inspection, no edema Neurologic/Psych:AAOX3, grossly no focal neurological deficits Skin: normal color, warm,+ jaundice Principal Diagnosis Nausea vomiting, after esophageal stent placement Recent diagnosis of esophageal cancer Electrolyte abnormalities Anemia Discharge Exam General Appearance:Moderately built and nourished, no apparent distress Head: normocephalic, Atraumatic Eyes: normal inspection, EOMI Neck: supple Respiratory/Chest: Normal breath sounds, CTA, No accessory muscle use Cardiovascular: S1, S2, No murmur Abdomen/GI:Soft, Non tender, Bowel sounds present, no guarding or rigidity Extremities/Musculoskeletal:normal inspection, no edema Neurologic/Psych:AAOX3, speech fluent, answering appropriately, moves extremities Skin: normal color, warm,+ jaundice Discharge Data Allergies Allergy/AdvReac Type Severity Reaction Status Date / Time No Known Allergies Allergy Unknown Verified 02/07/22 17:42 Consultations 02/07/22 17:38 ED Decision to Admit Stat 02/07/22 17:43 Consult General Surgery Routine 02/08/22 08:00 Consult Gastroenterology Routine Procedures Performed Operation Date: 02/08/22 08:25 Actual Procedures p Esophagogastroduodenoscopy, endoscopic retrograde cholangiopancreatography. - Ken Ruiz MD Ordered Studies 02/07/22 15:18 CT chest diagnostic wo con Stat FINDINGS: Lungs and pleura: Atelectasis versus scarring is seen in the dependent portions of the lungs. Heart and pericardium: Heart size is normal. No pericardial effusion. Vessels: Unremarkable. Mediastinum and chi: The esophagus is distended with enteric contrast. An esophageal stent is seen with passage of oral contrast into the stomach. Chest wall and lower neck: Unremarkable. Abdomen: For findings below the diaphragm, please refer to CT of the abdomen dated the same. Contrast is seen to pass normally into the stomach. Thickening of the distal esophagus and gastric wall is again seen. Bones: Unremarkable. IMPRESSION: No evidence of metastatic disease above the thorax. There is satisfactory passage of contrast through a esophageal stent. 02/07/22 15:37 CT abd pelvis wo con Stat FINDINGS: Lower chest: No acute abnormality Liver: Unremarkable. No focal lesions are seen. Gallbladder and biliary tree: The gallbladder contents are hyperdense which may represent vicarious excretion of contrast. There is prominence of the gallbladder wall measuring approximately 3.5 mm. No intra- or extrahepatic biliary ductal dilation. Pancreas: Unremarkable, no focal lesions. Spleen: Unremarkable. Adrenals: Unremarkable. Kidneys and ureters: Perinephric stranding is noted bilaterally. Bladder: Unremarkable. Reproductive organs: Prostatic calcifications are seen which may represent prior hemorrhage or granulomatous disease. Bowel: Diverticulosis is seen without evidence of diverticulitis. The appendix is normal. Contrast material is noted to pass freely through an esophageal stent. The gastric wall is thickened. Lymph nodes Retroperitoneal: Numerous enlarged lymph nodes are seen measuring up to 17 mm in short axis. Jolene hepatis nodes are also seen measuring up to 11 mm. There is a retroperitoneal node measuring 31 x 37 mm, stable to minimally enlarged from prior exam, which may also represent an enlarged retroperitoneal node. Pelvic: Unremarkable. Mesenteric: Subcentimeter lymph nodes are noted. Peritoneum: Fat stranding is seen in the upper abdomen particularly around the stomach. Vessels: Unremarkable. Abdominal wall: Unremarkable. Bones: Unremarkable. IMPRESSION: 1. Prominence of the gallbladder wall which is partially visualized with intraluminal vicarious contrast. Clinical correlation for acute cholecystitis is recommended. 2. Interval placement of esophageal stent with satisfactory passage of contrast into the stomach. Thickening of the wall of the esophagus and proximal stomach is again seen. Numerous retroperitoneal lymph nodes are seen, enlarged from prior exam, concerning for metastatic disease. Subcentimeter mesenteric nodes are also seen. 02/07/22 16:46 US gallbladder Stat FINDINGS: Pancreas: The pancreatic head and tail are obscured by overlying bowel gas. The remaining portions of the pancreas are within normal limits. Liver: There are scattered hypoechoic lesions seen within the liver with the 2 largest within the right hepatic lobe measuring 4.5 and 2.7 cm. The main portal vein is patent and demonstrate normal direction of flow. There is mild periportal edema again noted. There is mild intrahepatic bile duct dilatation. Gallbladder: No gallbladder wall thickening. No gallstones. CBD: 5 mm. Right kidney: No hydronephrosis. IMPRESSION: 1. Multiple scattered hypoechoic lesions within the liver consistent with metastatic disease. Dominant lesion measures 4.5 cm. 2. Normal gallbladder. No gallstones. 02/07/22 19:22 MR MRCP Routine 02/08/22 FL ERCP biliary ductal Routine FINDINGS: 14 fluoroscopic spot images of the upper abdomen were submitted for review. There is an indwelling distal esophageal/gastric stent. Balloon dilatation was performed. Contrast was injected through the stent which demonstrates patency. IMPRESSION: Fluoroscopic assistance provided for a balloon dilatation of the indwelling esophageal/gastric stent. Hospital Course (1) Primary cancer of esophagus with metastasis to other site: (2) Nausea & vomiting: (3) Anemia: (4) Hypokalemia: (5) T2DM (type 2 diabetes mellitus): (6) Hypertension: Plan This is a 51-year-old male who has significant past medical history of HTN, T2DM, incomplete right bundle branch block, GERD, history of postop streptococcal glomerulonephritis, newly diagnosed esophageal adenocarcinoma who presents to ED after undergoing EGD and stent placement of stenotic esophagus secondary to mass on 02/06/2022 due to persistent nausea and vomiting. Nausea and vomiting Esophageal adenocarcinoma status post stent placement via EGD on 02/06/2022, currently undergoing staging with METS to lymph nodes and now liver Transaminitis Leukocytosis Patient underwent EGD with stent placement 02/06. Since procedure has been unable to tolerate anything orally. Has new onset transaminitis with hyperbilirubinemia of 4.3, AST 322, ALT 75 and alk phos 324 Also has elevated WBC at 17.42k CT abdomen pelvis concerning for possible acute cholecystitis GB US:Multiple scattered hypoechoic lesions within the liver consistent with metastatic disease. Dominant lesion measures 4.5 cm. MRCP with no significant biliary ductal dilatation. However, apparent extrinsic compression upon the common hepatic and common bile ducts, as described above. This could be due to adjacent lymphadenopathy. ERCP might be considered. Innumerable hepatic lesions measuring up to 2 cm. These are consistent with metastases. 3. Distal esophageal and proximal gastric mass consistent with known primary with pathologic lymphadenopathy. Distal esophageal stent in place. Gastroenterology - recommended ERCP After ERCP, discussed findings with the GI attending, Dr. Ruiz.- Pre- existing esophageal stent partially migrated to the stomach. This was repositioned again. Stent lumen dilated to 15 mm however still would not accommodate passage of the duodenoscope hence ERCP not performed. Patient okay to start clear liquid diet. Patient is interested in possible hospice/ palliative care, and does not wish for any more intervention. 02/09 - patient feels well, is tolerating p.o. clear liquid diet. Hemoglobin 6.9 discussed possible blood transfusion, patient agreed and 1 unit was transfused. Potassium magnesium also replaced. Patient would like to be discharged home as he is making caregiver for his mom. He has appointment with Dr. Centeno (oncology), and PET scan scheduled for Friday. Goals of care Lissett TUCKER also met w/ the pt for goals of care discussion due to poorly differentiated metastatic cancer. Remains DNR/DNI; uncertain about whether or not he wants to pursue aggressive treatment. Wants to meet with oncologist and undergo PET scan next week to discuss prognosis more fully. Most concerned about maintaining a certain level of comfort and quality of life during this time. Outpatient palliative appt via telemedicine made for Friday02/12/22 at 1 pm for further discussion. Please see Lissett's note for further details of discussion. Hypokalemia Due to vomiting, poor intake Replacing Microcytic anemia Likely in setting of cancer, h/o GI bleeding Hgb downtrending to 7.6 likely dilutional effect, bleeding. s/p endoscopy 02/09 - Hemoglobin 6.9 discussed possible blood transfusion, patient agreed and 1 unit was transfused. EKG change lateral depressions, trop negative, denies chest pain Echo obtained with EF 55%, grade 1 diastolic dysfunction HTN bp stable continue coreg T2DM A1c 7.1 on 09/2021, current 6.2% Monitor blood sugars, given poor intake will not place on coverage DVT ppx:SCDS DNR/DNI Dispo: Plan to DC home PCP: Brigid Hu Total Time Total Time Spent Total Time Spent (In Minutes): 40 Discharge Plan Discharge Items Patient Disposition: Home - Self-Care Reason For Visit: ELEVATED LFTS, NEWLY DX ESOPHAGEAL CANCER Discharge Diagnosis: Nausea vomiting, after esophageal stent placement Recent diagnosis of esophageal cancer Electrolyte abnormalities Anemia Condition on Discharge: Fair Activity: Per Instructions section Non-emergency contact: Primary Care Provider, Dumping Machine Operator and Oncologist Call non-emergency contact if: you have any medication questions and your symptoms worsen Follow-up/Referrals: Brigid Joseph PA-C [Primary Care Provider] - Diet: Clear liquid Addtl Attending Provider Instructions: Follow-up with your oncologist, Dr. Centeno, and obtain PET scan as already scheduled. Recommend to follow-up with your primary care doctor within 2 weeks. Follow-up with gastroenterology, Dr. Ruiz, as needed as well. Pending Studies at Discharge: No Stand-Alone Forms: My [facility] [employer], Smoking Cessation Medications and DC Order Prescriptions: New potassium chloride 10 mEq capsule, extended release 10 meq PO DAILY Qty: 30 0RF Continued carvedilol 12.5 mg tablet 12.5 mg PO QAM ondansetron HCl 4 mg tablet 4 mg PO Q8H PRN (Reason: Nausea) Discharge Orders: Discharge Order (Routine); Ordered 02/10/22 Ordered By: Shaquille Quesada Admission Data Admit Date/Time: 02/07/22 17:43 Attending Provider: Shaquille Quesada Admit Provider: Alonzo Solares Primary Care Provider: Brigid Joseph Other Providers: Nancy Pearson ; Alonzo Solares ; Sandy Ward ; Ken Ruiz
== END 2022-02-10 14:10 | disposition home or self-care (01) | DRG 375 ==
LOC: ED 14:30 → 3W 17:43 → SUATTDRO 17:43 → 3W 19:28

== ENCOUNTER 2022-02-19 18:18 | Observation (INO) ==
[2022-02-19] MEDS ORDERED: ONDANSETRON INJ 2 MG/ML 2 ML VIAL IV STA (18:47)
[2022-02-19] MEDS ORDERED: SODIUM CHLORIDE 0.9% 1000ML 1,000 ML IV ONE (18:47)
--- NOTE | 2022-02-19 18:49 | Emergency Department Note ---
Impression & Plan Esophageal cancer ADMIT ED Provider Note HPI: The patient is a 51-year-old gentleman with history of esophageal adenocarcinoma with metastasis, not currently on any chemotherapy or radiation therapy, presents the emergency department with generalized weakness that has been worsening over the past several days. Patient does appear listless and extremely jaundiced on arrival. Patient states that he just feels very weak, denies any focal complaint of pain, states he does feel nauseated and although this is been ongoing for about a month it seems to be worse today. He has not had any vomiting today. Patient denies any chest pain or shortness of breath. On arrival he is slightly tachycardic but otherwise hemodynamically stable and saturating well on room air. ROS: -General: Generalized weakness in the setting of metastatic esophageal cancer *10 point review systems was conducted and is otherwise negative unless stated above *Outpatient medications and allergy history reviewed PE: General: Alert, NAD HEENT: Normocephalic, atraumatic Eyes: Extraocular eye movement is intact, no scleral erythema Pulmonary: Clear to auscultation bilaterally, no wheezing Cardio: Regular rate and rhythm GI: Abdomen is soft, nontender : No suprapubic tenderness MSK: No evidence of trauma or malformation of the extremities, no edema Skin: Jaundice, no evidence of rash Neuro: Alert, no focal deficits Psychiatric: Cooperative conveyor monitor: - An order was placed for continuous cardiac monitoring - Patient was noted to be in sinus rhythm with a rate of 85 EKG: Rate: 80 Rhythm: Normal sinus rhythm Intervals: Within normal limits ST changes: No ST elevation Time: 1827 Medical Decision Making: Patient presented to the emergency department with generalized weakness, this is in the setting of metastatic esophageal cancer, he is significantly jaundiced on arrival, he is otherwise hemodynamically stable and he is alert and displays clear mentation. IV was established, patient was given IV fluids and Zofran, CT imaging of the chest as well as CT imaging of the abdomen pelvis were obtained. CT imaging does show evidence of hepatic metastasis and patient's known esophageal cancer at the distal esophagus, stent appears to abut the greater curvature of the stomach. There is significant dilation of the intrahepatic and extrahepatic biliary ducts, likely consistent with a mass stricture. Cannot rule out the possibility of a stone. Patient does have a significant transaminitis as well as an elevated bilirubin greater than 17. Patient is also noted to have a leukocytosis and anemia with a hemoglobin of 8.8. This is stable, in comparison to prior blood work. Patient was ordered a prophylactic dose of cefepime here in the ED, he was also ordered electrolyte repletion for potassium as his potassium was low at 2.8. EKG shows normal sinus rhythm. Patient denies any pain, he has not had any vomiting here in the ED. Upon review of previous gastroenterology notes from earlier this month, ERCP was unable to be performed secondary to esophageal stricture around the stent, scope was unable to be passed. Recommendation was made for transfer to tertiary care for interventional radiology assessment to possibly decompress the biliary tree and patient declined. I did discuss possible options with the patient including admission for inpatient hospice versus transfer to tertiary care to see if IR would be able to decompress the biliary tree. Patient is opting for transfer to tertiary care to see what treatment possibilities might exist. I did discuss all of the above findings with the on-call hospitalist at [facility] in [place], Dr. Jerome, who did accept the patient for transfer however bed is unavailable until tomorrow afternoon. Therefore the case was discussed with our in-house [facility] hospitalist, Dr. Price, who accepted the patient for admission until bed is available tomorrow at [facility] in [place]. Patient was in agreement for this plan, he did sign consent for transfer when the bed was available. He is resting in bed and appears comfortable and hemodynamically stable on my r eassessment prior to admission. He is noted to be DNR/DNI CODE STATUS but at this time would like to seek treatment options at tertiary care. Patient was admitted in stable condition for further care. Diagnosis: 1. Esophageal cancer with metastatic disease 2. Stricture of the distal biliary tree 3. Hyperbilirubinemia with jaundice 4. Leukocytosis 5. Chronic anemia 6. Hypokalemia 7. Nausea Disposition: Admission Latrell Mace DO Emergency Medicine Past Med/Surg History Medical History (Updated 02/19/22 @ 23:21 by Latrell Mace DO) Esophageal neoplasm GIB (gastrointestinal bleeding) Hypertension T2DM (type 2 diabetes mellitus) Surgical History Hx of esophagogastroduodenoscopy Family History Father Cancer Lung Grandmother (Paternal) Cancer Breast Grandfather (Paternal) Cancer Stomach Social History Smoking Status: Never smoker Second Hand Exposure: No; Hx Alcohol Use: No Hx Substance Use: No Preferred Language: Maori Communication Ability: Effective Telecommunications Switch Technician Required: No Beliefs That Will Affect Care: None marital status: Single Current Living Situation: Parent Current Living Situation Comment: 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 current occupational status: unemployed 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 Feels Safe at Home: Yes Diet Comment: Liquid diet during the past year weight has: decreased > 10 lbs Dental Care, Regularly: Yes Assistive Devices: None Allergies Allergies Allergy/AdvReac Type Severity Reaction Status Date / Time No Known Allergies Allergy Unknown Verified 02/19/22 21:16 Home Meds Home Medications Medication Instructions Recorded Confirmed carvedilol 12.5 mg tablet 12.5 mg PO QAM 02/01/22 02/19/22 ondansetron HCl 4 mg tablet 4 mg PO Q8H PRN Nausea 02/07/22 02/19/22 omeprazole 40 mg capsule,delayed 40 mg PO QAM 02/19/22 02/19/22 release oxycodone 10 mg tablet 10 mg PO Q4 PRN Pain, Moderate 02/19/22 02/19/22 Previous Rx's Medication Instructions Recorded potassium chloride 10 mEq 10 meq PO DAILY #30 caps 02/09/22 capsule,extended release Results & Data (ED) Vital Signs Vital Signs - 24 hr 02/19/22 18:20 02/19/22 21:00 02/19/22 21:30 Temperature 36.5 C Temperature Source Oral Pulse Rate 103 H 66 66 Respiratory Rate 19 21 17 Respiratory Effort / Characteristics Non-Labored Spontaneous Respiratory Depth Normal Respiratory Pattern Regular Blood Pressure 128/89 114/73 110/75 Blood Pressure Mean 102 86 86 Pulse Oximetry 98 96 95 Oxygen Delivery Method Room Air Room Air Room Air Sepsis Recent Fever Within 48 Hours No Sepsis New/Unexplained Change in Mental Status N/A Sepsis Action Taken by Nursing No Action Required Laboratory Data Result diagrams: 02/19/22 18:36 02/19/22 18:36 Lab Results 02/19/22 02/19/22 02/19/22 Range/Units 18:36 18:36 18:36 WBC 20.30 H (4.8-10.8) K/ul RBC 3.45 L (4.63-6.08) M/uL Hgb 8.8 L (14.0-18.0) g/dl Hct 27.6 L (40.1-51.0) % MCV 80.0 (80.0-100.0) fL MCH 25.5 (25.0-34.0) pg MCHC 31.9 L (32.0-36.0) g/dL RDW Std Deviation 62.2 H (36.4-46.3) fL RDW Coeff of [place] 22.0 H (11.5-14.5) % Plt Count 387 (130-400) K/uL MPV 10.8 (9.4-12.4) fL Immature Gran % (Auto) 1.6 % Neut % (Auto) 69.4 % Lymph % (Auto) 24.5 % [place] % (Auto) 4.4 % Eos % (Auto) 0.0 % Baso % (Auto) 0.1 % Neut # (Auto) 14.08 H (1.4-6.5) K/uL Lymph # (Auto) 4.98 H (1.2-3.4) K/uL [place] # (Auto) 0.89 H (0.24-0.82) K/uL Eos # (Auto) 0.01 (0-0.50) K/uL Baso # (Auto) 0.02 (0-0.2) K/uL Immature Gran # (Auto) 0.32 H (0.00-0.02) K/uL Absolute Nucleated RBC 0.06 H (0-0) K/uL Nucleated RBC % (auto) 0.3 % Polychromasia 1+ Stomatocytes 1+ Sodium 132 L (136-145) mmol/L Potassium 2.8 L (3.5-5.1) mmol/L Chloride 88 L (98-107) mmol/L Carbon Dioxide 34 H (21-32) mmol/L Anion Gap 10 (3-11) BUN 21 (6-23) mg/dl Creatinine 0.86 (0.6-1.4) mg/dl Est Cr Clr Drug Dosing Not Reportable Est GFR ( Amer) 114.7 ml/min Est GFR (Non-Af Amer) 99.0 ml/min BUN/Creatinine Ratio 24.4 H (10-20) Glucose 143 H (70-99(Fasting)) mg/dl Lactate (0.4-2.0) mmol/L Calcium 8.5 (8.5-10.1) mg/dl Total Bilirubin 17.8 H (0.2-1.0) mg/dl AST 164 H (13-39) U/L ALT 308 H (7-52) U/L Alkaline Phosphatase 589 H (34-104) U/L Troponin I High Sens 16.1 (0-20) pg/ml Total Protein 5.8 L (6.0-8.3) gm/dl Albumin 3.1 L (3.4-5.0) gm/dl Globulin 2.7 (2.5-4.0) gm/dl Albumin/Globulin Ratio 1.1 (0.9-2) TSH 0.959 (0.300-4.500) uIu/ml SARS-CoV-2 (PCR) (Negative) Influenza Type A (PCR) (Neg) Influenza Type B (PCR) (Neg) RSV (RT-PCR) (Neg) 02/19/22 02/19/22 Range/Units 20:36 21:15 WBC (4.8-10.8) K/ul RBC (4.63-6.08) M/uL Hgb (14.0-18.0) g/dl Hct (40.1-51.0) % MCV (80.0-100.0) fL MCH (25.0-34.0) pg MCHC (32.0-36.0) g/dL RDW Std Deviation (36.4-46.3) fL RDW Coeff of [place] (11.5-14.5) % Plt Count (130-400) K/uL MPV (9.4-12.4) fL Immature Gran % (Auto) % Neut % (Auto) % Lymph % (Auto) % [place] % (Auto) % Eos % (Auto) % Baso % (Auto) % Neut # (Auto) (1.4-6.5) K/uL Lymph # (Auto) (1.2-3.4) K/uL [place] # (Auto) (0.24-0.82) K/uL Eos # (Auto) (0-0.50) K/uL Baso # (Auto) (0-0.2) K/uL Immature Gran # (Auto) (0.00-0.02) K/uL Absolute Nucleated RBC (0-0) K/uL Nucleated RBC % (auto) % Polychromasia Stomatocytes Sodium (136-145) mmol/L Potassium (3.5-5.1) mmol/L Chloride (98-107) mmol/L Carbon Dioxide (21-32) mmol/L Anion Gap (3-11) BUN (6-23) mg/dl Creatinine (0.6-1.4) mg/dl Est Cr Clr Drug Dosing Est GFR ( Amer) ml/min Est GFR (Non-Af Amer) ml/min BUN/Creatinine Ratio (10-20) Glucose (70-99(Fasting)) mg/dl Lactate 1.2 (0.4-2.0) mmol/L Calcium (8.5-10.1) mg/dl Total Bilirubin (0.2-1.0) mg/dl AST (13-39) U/L ALT (7-52) U/L Alkaline Phosphatase (34-104) U/L Troponin I High Sens (0-20) pg/ml Total Protein (6.0-8.3) gm/dl Albumin (3.4-5.0) gm/dl Globulin (2.5-4.0) gm/dl Albumin/Globulin Ratio (0.9-2) TSH (0.300-4.500) uIu/ml SARS-CoV-2 (PCR) NEGATIVE (Negative) Influenza Type A (PCR) Negative (Neg) Influenza Type B (PCR) Negative (Neg) RSV (RT-PCR) Negative (Neg) Administered Medications Discontinued Medications Sodium Chloride (Nss 1000ml) 1,000 mls @ 999 mls/hr IV .Q1H1M ONE Stop: 02/19/22 19:47 Last Admin: 02/19/22 20:41 Dose: 999 mls/hr Documented By: MORALES Cefepime HCl (Maxipime) 2,000 mg in 20 mls @ 5 mls/min IV NOW STA; Protocol Stop: 02/19/22 19:07 Last Admin: 02/19/22 20:44 Dose: 5 mls/min Documented By: MORALES Potassium Chloride (K [place] / Wtr) 10 meq in 100 mls @ 100 mls/hr IV Q1H LONG; Protocol Stop: 02/19/22 21:44 Last Infusion: 02/19/22 23:00 Dose: 0 mls/hr Documented By: Admin: 02/19/22 21:56 Dose: 100 mls/hr Documented By: Infusion: 02/19/22 21:44 Dose: 100 mls/hr Documented By: Admin: 02/19/22 20:44 Dose: 100 mls/hr Documented By: MORALES Ioversol (Optiray 300 500ml) 102 ml IV ONCE ONE Stop: 02/19/22 20:23 Last Admin: 02/19/22 20:22 Dose: 102 ml Documented By: CORETTA Ondansetron HCl (Ondansetron Inj 2 Mg/Ml 2 Ml Vial) 4 mg IV NOW STA Stop: 02/19/22 18:48 Last Admin: 02/19/22 20:42 Dose: 4 mg Documented By: MORALES Imaging Data Radiologist's Impression: Abdomen/Pelvis CT 02/19/22 18:46 CT angio chest PE protocol, CT abd pelvis IV con only HISTORY: 51 years-old Male with PE. Acute weakness with jaundice and history of esophageal carcinoma TECHNIQUE: Multiple CTA images of the chest were obtained after the intravenous administration of 102 ml Optiray. Coronal and sagittal MIPS were obtained from the axial data set and were submitted for review. CT abdomen and pelvis with IV contrast only was also obtained All measurements were obtained according to NASCET criteria. A dose lowering technique was utilized adhering to the principles of ALARA. COMPARISON: CT chest, abdomen and pelvis 02/07/2022 FINDINGS: CTA: The heart is upper limits of normal in size. There is no pericardial effusion. Ectasia of the ascending thoracic aorta, 3.9 cm without aneurysm or dissection. Unremarkable pulmonary artery. No filling defects to suggest pulmonary emboli. CT CHEST: No thyroid nodule. Right tracheoesophageal recess and right paratracheal lymphadenopathy with lymph nodes measuring up to 1.3 cm in short axis. Appear generally stable. There is no new or progressive lymphadenopathy identified within the chest. Moderate hemidiaphragmatic elevation. No pneumothorax, pleural effusion, airspace consolidation, overt pulmonary edema, suspicious pulmonary nodules or masses identified. Unremarkable soft tissues. No acute fracture or destructive bone lesion identified. CT ABDOMEN/PELVIS: No pneumatosis or pneumoperitoneum. Unremarkable spleen, and adrenal glands. Interstitial and peripancreatic edema with trace abdominal pelvic ascites. Contracted gallbladder with wall thickening. There is a 2 mm hyperdense structure within the common bile duct on image 183. Intrahepatic and extrahepatic biliary ductal dilation is new/progressed from the prior study. There is focal narrowing of the common bile duct with possible stricturing/extrinsic mass effect from the malignant adjacent lymphadenopathy. Innumerable hepatic metastasis measure up to approximately 2 cm. The portal vein appears patent. Pathologic upper abdominal lymphadenopathy includes rolando rohepatic lymph nodes/conglomerate adenopathy measuring up to 5.1 cm. Numerous pathologically enlarged retroperitoneal lymph nodes appear generally stable. Mild cortical scarring and parenchymal thinning of the left kidney. No hydronephrosis. Prostamegaly. Unremarkable urinary bladder. Aorta and IVC are within normal limits.Distal esophageal and proximal gastric wall thickening is redemonstrated and appears similar to the prior study. An esophageal stent is in place with distal portion of the stent abutting and partially extending through the greater curvature of the gastric body on image 1:30 series 6. There is mild adjacent inflammatory stranding. There is diffuse gastric wall thickening. No small bowel obstruction. Colonic diverticulosis. Residual contrast within the large bowel. Normal appendix. Unremarkable soft tissues. No acute fracture or new destructive bone lesion. IMPRESSION: 1. No pulmonary emboli identified. 2. Distal esophageal and proximal gastric wall thickening redemonstrated compatible with the patient's known primary malignancy. 3. Stable pathologic adenopathy of the chest, abdomen and pelvis. 4. The stent within the distal esophagus and proximal stomach abuts and partially extends through the greater curvature of the proximal gastric body 5. No pneumoperitoneum. 6. Innumerable hepatic metastasis. 7. Progressively worsened intrahepatic and extrahepatic biliary ductal dilation, possibly from extrinsic mass effect from the metastatic lymphadenopathy. Additionally, there is suggestion of choledocholithiasis. 8. Possible acute pancreatitis. Correlate with lipase level. 9. Additional findings as above. ACT 112: Negative or not required by law. The above report was generated using voice recognition software. It may contain grammatical, syntax or spelling errors. Electronically signed by: Ivan Archer M.D. 02/19/2022 9:34 PM Chest CTA 02/19/22 18:46 CT angio chest PE protocol, CT abd pelvis IV con only HISTORY: 51 years-old Male with PE. Acute weakness with jaundice and history of esophageal carcinoma TECHNIQUE: Multiple CTA images of the chest were obtained after the intravenous administration of 102 ml Optiray. Coronal and sagittal MIPS were obtained from the axial data set and were submitted for review. CT abdomen and pelvis with IV contrast only was also obtained All measurements were obtained according to NASCET criteria. A dose lowering technique was utilized adhering to the principles of ALARA. COMPARISON: CT chest, abdomen and pelvis 02/07/2022 FINDINGS: CTA: The heart is upper limits of normal in size. There is no pericardial effusion. Ectasia of the ascending thoracic aorta, 3.9 cm without aneurysm or dissection. Unremarkable pulmonary artery. No filling defects to suggest pulmonary emboli. CT CHEST: No thyroid nodule. Right tracheoesophageal recess and right paratracheal lymphadenopathy with lymph nodes measuring up to 1.3 cm in short axis. Appear generally stable. There is no new or progressive lymphadenopathy identified within the chest. Moderate hemidiaphragmatic elevation. No pneumothorax, pleural effusion, airspace consolidation, overt pulmonary edema, suspicious pulmonary nodules or masses identified. Unremarkable soft tissues. No acute fracture or destructive bone lesion identified. CT ABDOMEN/PELVIS: No pneumatosis or pneumoperitoneum. Unremarkable spleen, and adrenal glands. Interstitial and peripancreatic edema with trace abdominal pelvic ascites. Contracted gallbladder with wall thickening. There is a 2 mm hyperdense structure within the common bile duct on image 183. Intrahepatic and extrahepat ic biliary ductal dilation is new/progressed from the prior study. There is focal narrowing of the common bile duct with possible stricturing/extrinsic mass effect from the malignant adjacent lymphadenopathy. Innumerable hepatic metastasis measure up to approximately 2 cm. The portal vein appears patent. Pathologic upper abdominal lymphadenopathy includes gastrohepatic lymph nodes/conglomerate adenopathy measuring up to 5.1 cm. Numerous pathologically enlarged retroperitoneal lymph nodes appear generally stable. Mild cortical scarring and parenchymal thinning of the left kidney. No hydronephrosis. Prostamegaly. Unremarkable urinary bladder. Aorta and IVC are within normal limits.Distal esophageal and proximal gastric wall thickening is redemonstrated and appears similar to the prior study. An esophageal stent is in place with distal portion of the stent abutting and partially extending through the greater curvature of the gastric body on image 1:30 series 6. There is mild adjacent inflammatory stranding. There is diffuse gastric wall thickening. No small bowel obstruction. Colonic diverticulosis. Residual contrast within the large bowel. Normal appendix. Unremarkable soft tissues. No acute fracture or new destructive bone lesion. IMPRESSION: 1. No pulmonary emboli identified. 2. Distal esophageal and proximal gastric wall thickening redemonstrated compatible with the patient's known primary malignancy. 3. Stable pathologic adenopathy of the chest, abdomen and pelvis. 4. The stent within the distal esophagus and proximal stomach abuts and partially extends through the greater curvature of the proximal gastric body 5. No pneumoperitoneum. 6. Innumerable hepatic metastasis. 7. Progressively worsened intrahepatic and extrahepatic biliary ductal dilation, possibly from extrinsic mass effect from the metastatic lymphadenopathy. Additionally, there is suggestion of choledocholithiasis. 8. Possible acute pancreatitis. Correlate with lipase level. 9. Additional findings as above. ACT 112: Negative or not required by law. The above report was generated using voice recognition software. It may contain grammatical, syntax or spelling errors. Electronically signed by: Ivan Archer M.D. 02/19/2022 9:34 PM Discharge Plan Visit Data Chief Complaint: Weakness Stated Complaint: CANCER, FATIGUE,WEAK ED Provider: Latrell Mace Discharge Problem: Esophageal cancer Patient Disposition: Admitted As Inpatient Forms Stand Alone Forms: [facility] Prescriptions Prescriptions: No Action carvedilol 12.5 mg tablet 12.5 mg PO QAM omeprazole 40 mg capsule,delayed release(DR/EC) 40 mg PO QAM oxycodone 10 mg tablet 10 mg PO Q4 PRN (Reason: Pain, Moderate) ondansetron HCl 4 mg tablet 4 mg PO Q8H PRN (Reason: Nausea) potassium chloride 10 mEq capsule, extended release 10 meq PO DAILY Qty: 30 0RF Referrals Referrals: Brigid Joseph PA-C [Primary Care Provider] -
[2022-02-19 18:56] LABS: Basophils # (auto) 0.02 K/uL (0-0.2); Basophils % (auto) 0.1 %; Eosinophils # (auto) 0.01 K/uL (0-0.50); Hematocrit (blood only) 27.6 % (40.1-51.0); Hemoglobin 8.8 g/dl (14.0-18.0); Immature Granulocytes # (auto) 0.32 K/uL (0.00-0.02); Immature Granulocytes % (auto) 1.6 %; Lymphocytes # (auto) 4.98 K/uL (1.2-3.4); Lymphocytes % (auto) 24.5 %; Mean Corpuscular Hemoglobin 25.5 pg (25.0-34.0); Mean Corpuscular Hgb Conc 31.9 g/dL (32.0-36.0); Mean Platelet Volume 10.8 fL (9.4-12.4); Monocytes # (auto) 0.89 K/uL (0.24-0.82); Monocytes % (auto) 4.4 %; Neutrophils # (auto) 14.08 K/uL (1.4-6.5); Neutrophils % (auto) 69.4 %; Nucleated RBC # (auto) 0.06 K/uL (0-0); Nucleated RBC % (auto) 0.3 %; Platelet Count 387 K/uL (130-400); RDW Standard Deviation 62.2 fL (36.4-46.3); Red Blood Count 3.45 M/uL (4.63-6.08)
[2022-02-19] MEDS ORDERED: CEFEPIME 2,000 MG/20 ML VIAL IV STA (19:04)
[2022-02-19 19:17] LABS: Alanine Aminotransferase 308 U/L (7-52); Albumin Globulin Ratio 1.1 (0.9-2); Albumin Level 3.1 gm/dl (3.4-5.0); Alkaline Phosphatase 589 U/L (34-104); Anion Gap 10 (3-11); Aspartate Aminotransferase 164 U/L (13-39); BUN Creatinine Ratio 24.4 (10-20); Bilirubin,Total 17.8 mg/dl (0.2-1.0); Blood Urea Nitrogen 21 mg/dl (6-23); Calcium 8.5 mg/dl (8.5-10.1); Carbon Dioxide 34 mmol/L (21-32); Chloride 88 mmol/L (98-107); Est GFR (African American) 114.7 ml/min; Globulin 2.7 gm/dl (2.5-4.0); Glucose 143 mg/dl (70-99(Fasting)); Potassium 2.8 mmol/L (3.5-5.1); Sodium 132 mmol/L (136-145); Total Protein 5.8 gm/dl (6.0-8.3)
[2022-02-19 19:22] LABS: Troponin I High Sensitivity 16.1 pg/ml (0-20)
[2022-02-19 19:25] LABS: Polychromasia 1+; Stomatocytes 1+
[2022-02-19] MEDS ORDERED: OPTIRAY 300 500mL IV ONE (20:22)
[2022-02-19] MEDS: POTASSIUM CHLORIDE / WTR 10 MEQ/100 ML PLCT IV SCH ×2 (20:44→21:56)
[2022-02-19 21:33] LABS: Influenza A virus by PCR Negative (Neg); Influenza B virus by PCR Negative (Neg); RSV by PCR Negative (Neg); SARS CoV2 RNA(COVID-19) InHosp NEGATIVE (Negative)
--- NOTE | 2022-02-19 21:36 | CT Scan Report ---
CT angio chest PE protocol, CT abd pelvis IV con only HISTORY: 51 years-old Male with PE. Acute weakness with jaundice and history of esophageal carcinom a TECHNIQUE: Multiple CTA images of the chest were obtained after the intravenous administration of 102 ml Optiray. Coronal and sagittal MIPS were obtained from the axial data set and were submitted for review. CT abdomen and pelvis with IV contrast only was also obtained All measurements were obtained according to NASCET criteria. A dose lowering technique was utilized adhering to the principles of AL IFEOMA. COMPARISON: CT chest, abdomen and pelvis 02/07/2022 FINDINGS: CTA: The heart is upper limits of normal in size. There is no pericardial effusion. Ectasia of the ascendi ng thoracic aorta, 3.9 cm without aneurysm or dissection. Unremarkable pulmonary artery. No filling d efects to suggest pulmonary emboli. CT CHEST: No thyroid nodule. Right tracheoesophageal recess and right paratracheal lymphadenopathy with lymph n odes measuring up to 1.3 cm in short axis. Appear generally stable. There is no new or progressive ly mphadenopathy identified within the chest. Moderate hemidiaphragmatic elevation. No pneumothorax, ple ural effusion, airspace consolidation, overt pulmonary edema, suspicious pulmonary nodules or masses identified. Unremarkable soft tissues. No acute fracture or destructive bone lesion identified. CT ABDOMEN/PELVIS: No pneumatosis or pneumoperitoneum. Unremarkable spleen, and adrenal glands. Interstitial and perip[place] creatic edema with trace abdominal pelvic ascites. Contracted gallbladder with wall thickening. There is a 2 mm hyperdense structure within the common bile duct on image 183. Intrahepatic and extrahepat ic biliary ductal dilation is new/progressed from the prior study. There is focal narrowing of the co mmon bile duct with possible stricturing/extrinsic mass effect from the malignant adjacent lymphadeno barry. Innumerable hepatic metastasis measure up to approximately 2 cm. The portal vein appears paten t. Pathologic upper abdominal lymphadenopathy includes gastrohepatic lymph nodes/conglomerate adenopa thy measuring up to 5.1 cm. Numerous pathologically enlarged retroperitoneal lymph nodes appear gener ally stable. Mild cortical scarring and parenchymal thinning of the left kidney. No hydronephrosis. Prostamegaly. Unremarkable urinary bladder. Aorta and IVC are within normal limits.Distal esophageal and proximal g astric wall thickening is redemonstrated and appears similar to the prior study. An esophageal stent is in place with distal portion of the stent abutting and partially extending through the greater cur vature of the gastric body on image 1:30 series 6. There is mild adjacent inflammatory stranding. The re is diffuse gastric wall thickening. No small bowel obstruction. Colonic diverticulosis. Residual c ontrast within the large bowel. Normal appendix. Unremarkable soft tissues. No acute fracture or new destructive bone lesion. IMPRESSION: 1. No pulmonary emboli identified. 2. Distal esophageal and proximal gastric wall thickening redemonstrated compatible with the patient' s known primary malignancy. 3. Stable pathologic adenopathy of the chest, abdomen and pelvis. 4. The stent within the distal esophagus and proximal stomach abuts and partially extends through the greater curvature of the proximal gastric body 5. No pneumoperitoneum. 6. Innumerable hepatic metastasis. 7. Progressively worsened intrahepatic and extrahepatic biliary ductal dilation, possibly from extrin sic mass effect from the metastatic lymphadenopathy. Additionally, there is suggestion of choledochol ithiasis. 8. Possible acute pancreatitis. Correlate with lipase level. 9. Additional findings as above. ACT 112: Negative or not required by law. The above report was generated using voice recognition software. It may contain grammatical, syntax o r spelling errors. Electronically signed by: Ivan Archer M.D. 02/19/2022 9:34 PM
[2022-02-19] MEDS ORDERED: POTASSIUM CHLORIDE PWD 20 MEQ PACK PO STA (22:55)
[2022-02-19] MEDS ORDERED: LACTATED RINGER'S 1,000 ML IV ONE (22:58)
[2022-02-19 23:57] LABS: Appearance Urine Clear (Clear); Bacteria Urine Automated Negative (Negative); Blood Urine Negative (Negative); Color Urine Dark Yellow; Epithelial Cell Urine Auto 0-5 /lpf (0-5); Glucose Urine UA Negative (Negative); Ketones Urine Negative (Negative); Leukocyte Esterase Urine Trace (Negative); Nitrite Urine Positive (Negative); Protein Urine 1+ (Negative); RBC Urine Automated 0-4 /hpf (0-4); Specific Gravity Urine > 1.045 (1.000-1.030); Urobilinogen Urine Negative (Negative); pH Urine 6.5 (4.5-7.5)
[2022-02-20] LABS: Bilirubin Urine 3+ (Negative)
[2022-02-20 00:41] LABS: Magnesium 2.1 mg/dl (1.7-2.4)
[2022-02-20] MEDS ORDERED: PROMETHAZINE HCL 6.25 MG in SODIUM CHLORIDE 0.9% 50 ML IV PRN (00:53)
[2022-02-20] MEDS ORDERED: ACETAMINOPHEN 325 MG TAB PO PRN (00:53)
[2022-02-20] MEDS ORDERED: POTASSIUM CHLORIDE PWD 20 MEQ PACK PO STA (00:53)
[2022-02-20] MEDS ORDERED: oxyCODONE HCL IR 5 MG TAB (IMMEDIATE RELEASE) PO PRN ×2 (00:53→02:29)
[2022-02-20] MEDS ORDERED: LORazepam 0.5 MG TAB PO PRN (00:53)
[2022-02-20] MEDS ORDERED: PIPERACILLIN/TAZOBACTAM 4.5 GM/120 ML BAG IV ONE (00:53)
[2022-02-20] MEDS ORDERED: GLUCAGON FOR INJ 1 MG VIAL SQ PRN (02:29)
[2022-02-20] MEDS ORDERED: GLUCOSE 40% GEL 15 GM TUBE PO PRN (02:29)
[2022-02-20] MEDS ORDERED: GLUCOSE 10 TAB/TUBE PO PRN (02:29)
[2022-02-20] MEDS ORDERED: DEXTROSE 50% 50 ML SYRINGE IV PRN (02:29)
[2022-02-20] MEDS ORDERED: CARBOHYDRATES FOR HYPOGLYCEMIA PO PRN (02:29)
--- NOTE | 2022-02-20 03:26 | History & Physical Report ---
Date of Service February 20, 2022 Assessment & Plan (1) Sepsis: Plan: Secondary to biliary tract obstruction History esophageal cancer with liver mets Palliative chemotherapy contemplated hx diastolic dysfunction (EF 55 to 60%, TTE 2021), patient on the dry side hypertension, BP on the lower side chronic anemia, hemoglobin at baseline DM2 diet-controlled, well-controlled as of recent hemoglobin A1c of 6.2 last January 2022 F Transfer to [facility] once bed available (Patient kindly accepted for transfer by Dr. Jerome of the hospitalist service. Transfer paperwork already completed by ED provider.) Wilma LANDON N.p.o. for now in anticipation of IR procedure at [facility] Palliative care consultation as per patient request (Patient would like to discuss goals of care with specialist and to learn more about hospice. [facility] transfer may be cancelled if patient decides on hospice care.) ISS BG goal 1 10-1 40 DVT prophylaxis with Lovenox subcu DNR Text document was generated using [employer] voice recognition software. It may contain grammatical or spelling errors. Kindly contact undersigned for clarification of any documentation item in question. Admission and Anticipated Discharge Date Admission Date: February 20, 2022 History of Present Illness Chief Complaint: Weakness, increased jaundice Primary Care Provider: Brigid Joseph PA-C History obtained from patient and records. Medical history significant for diastolic dysfunction (EF 55 to 60%, TTE 2021), hypertension, esophageal cancer with liver mets, chronic anemia (baseline hemoglobin 8-9), DM2 diet-controlled. 3 confinements this month nausea/emesis symptoms attributed to newly diagnosed esophageal carcinoma with liver mets. Patient saw [facility] oncologist on outpatient visit last week. Palliative chemotherapy recommended. IR guided a port placement scheduled at [facility] this week. Patient noted increasing weakness and jaundice over the last few days. No actual chest pain, SOB, abdominal pain, fever, chills. Increased abdominal distention. Some nausea symptoms. Patient consulted ER. CT imaging showedprogressively worsened intrahepatic and extrahepatic biliary ductal dilation, possibly from extrinsic mass effect from the metastatic lymphadenopathy. IV Cefepime administered at the ER. Patient accepted for transfer at [facility] by hospitalist service for IR services for biliary tract obstruction pending bed availability. 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 Allergies Allergy/AdvReac Type Severity Reaction Status Date / Time No Known Allergies Allergy Unknown Verified 02/19/22 21:16 Home Medications Medication Instructions Recorded Confirmed Type carvedilol 12.5 mg tablet 12.5 mg PO QAM 02/01/22 02/19/22 History ondansetron HCl 4 mg tablet 4 mg PO Q8H PRN Nausea 02/07/22 02/19/22 History potassium chloride 10 mEq 10 meq PO DAILY #30 caps 02/09/22 02/19/22 Rx capsule,extended release omeprazole 40 mg capsule,delayed 40 mg PO QAM 02/19/22 02/19/22 History release oxycodone 10 mg tablet 10 mg PO Q4 PRN Pain, Moderate 02/19/22 02/19/22 History Past Med/Surg History Medical History (Updated 02/20/22 @ 06:28 by Barron Azul MD) Esophageal neoplasm GIB (gastrointestinal bleeding) Hypertension T2DM (type 2 diabetes mellitus) Surgical History Hx of esophagogastroduodenoscopy Family History Father Cancer Lung Grandmother (Paternal) Cancer Breast Grandfather (Paternal) Cancer Stomach Social History Smoking Status: Never smoker Second Hand Exposure: No; Do You Dip or Chew Tobacco: No; Hx Alcohol Use: No Hx Substance Use: No Preferred Language: Welsh Communication Ability: Effective Disc Jockey Required: No Beliefs That Will Affect Care: None marital status: Single Current Living Situation: Parent Current Living Situation Comment: 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 current occupational status: unemployed 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 Feels Safe at Home: Yes Safety Concerns: Feels Safe At This Time Diet Comment: Liquid diet during the past year weight has: decreased > 10 lbs Dental Care, Regularly: Yes Assistive Devices: None Review of Systems Review of Systems: As per HPI, all other systems reviewed and negative Physical Exam Physical Exam: GENERAL: Comfortable, slightly anxious, no respiratory distress SKIN: Jaundiced, warm HEENT: Pale palpebral conjunctivae, no ptosis, icteric sclerae, dry buccal mucosa NECK : Supple, no tenderness CHEST : CTA, no tenderness HEART : RRR, no obvious murmurs ABDOMEN: distention, minimal epigastric tenderness EXTREMITIES : No LE swelling/tenderness, no other conspicuous deformities noted NEUROLOGIC : Coherent, no facial asymmetry, no other gross focality Results & Data Results & Data ([facility]) Vital Signs (Past 12 Hours) Vital Signs Temp Pulse Resp BP Pulse Ox O2 Del Method 02/20/22 02:00 72 17 109/73 93 Room Air 02/20/22 01:30 78 18 118/77 96 Room Air 02/20/22 01:00 84 17 113/73 96 Room Air 02/20/22 00:30 76 19 116/79 91 Room Air 02/20/22 00:00 68 16 123/80 92 Room Air 02/19/22 23:30 71 22 107/87 98 Room Air 02/19/22 23:00 69 19 110/75 02/19/22 22:30 68 20 111/70 97 Room Air 02/19/22 22:00 72 21 130/84 96 Room Air 02/19/22 21:30 66 17 110/75 95 Room Air 02/19/22 21:00 66 21 114/73 96 Room Air 02/19/22 18:20 36.5 C 103 H 19 128/89 98 Room Air Laboratory Results Laboratory Results WBC 20.30 K/ul (4.8-10.8) H 02/19/22 18:36 RBC 3.45 M/uL (4.63-6.08) L 02/19/22 18:36 Hgb 8.8 g/dl (14.0-18.0) L 02/19/22 18:36 Hct 27.6 % (40.1-51.0) L 02/19/22 18:36 MCV 80.0 fL (80.0-100.0) 02/19/22 18:36 MCH 25.5 pg (25.0-34.0) 02/19/22 18:36 MCHC 31.9 g/dL (32.0-36.0) L 02/19/22 18:36 RDW Std Deviation 62.2 fL (36.4-46.3) H 02/19/22 18:36 RDW Coeff of [place] 22.0 % (11.5-14.5) H 02/19/22 18:36 Plt Count 387 K/uL (130-400) 02/19/22 18:36 MPV 10.8 fL (9.4-12.4) 02/19/22 18:36 Immature Gran % (Auto) 1.6 % 02/19/22 18:36 Neut % (Auto) 69.4 % 02/19/22 18:36 Lymph % (Auto) 24.5 % 02/19/22 18:36 [place] % (Auto) 4.4 % 02/19/22 18:36 Eos % (Auto) 0.0 % 02/19/22 18:36 Baso % (Auto) 0.1 % 02/19/22 18:36 Neut # (Auto) 14.08 K/uL (1.4-6.5) H 02/19/22 18:36 Lymph # (Auto) 4.98 K/uL (1.2-3.4) H 02/19/22 18:36 [place] # (Auto) 0.89 K/uL (0.24-0.82) H 02/19/22 18:36 Eos # (Auto) 0.01 K/uL (0-0.50) 02/19/22 18:36 Baso # (Auto) 0.02 K/uL (0-0.2) 02/19/22 18:36 Immature Gran # (Auto) 0.32 K/uL (0.00-0.02) H 02/19/22 18:36 Absolute Nucleated RBC 0.06 K/uL (0-0) H 02/19/22 18:36 Nucleated RBC % (auto) 0.3 % 02/19/22 18:36 Polychromasia 1+ 02/19/22 18:36 Stomatocytes 1+ 02/19/22 18:36 Sodium 132 mmol/L (136-145) L 02/19/22 18:36 Potassium 2.8 mmol/L (3.5-5.1) L 02/19/22 18:36 Chloride 88 mmol/L (98-107) L 02/19/22 18:36 Carbon Dioxide 34 mmol/L (21-32) H 02/19/22 18:36 Anion Gap 10 (3-11) 02/19/22 18:36 BUN 21 mg/dl (6-23) 02/19/22 18:36 Creatinine 0.86 mg/dl (0.6-1.4) 02/19/22 18:36 Est Cr Clr Drug Dosing Not Reportable 02/19/22 18:36 Est GFR ( Amer) 114.7 ml/min 02/19/22 18:36 Est GFR (Non-Af Amer) 99.0 ml/min 02/19/22 18:36 BUN/Creatinine Ratio 24.4 (10-20) H 02/19/22 18:36 Glucose 143 mg/dl (70-99(Fasting)) H 02/19/22 18:36 Lactate 1.2 mmol/L (0.4-2.0) 02/19/22 21:15 Calcium 8.5 mg/dl (8.5-10.1) 02/19/22 18:36 Magnesium 2.1 mg/dl (1.7-2.4) 02/19/22 18:36 Total Bilirubin 17.8 mg/dl (0.2-1.0) H 02/19/22 18:36 AST 164 U/L (13-39) H 02/19/22 18:36 ALT 308 U/L (7-52) H 02/19/22 18:36 Alkaline Phosphatase 589 U/L (34-104) H 02/19/22 18:36 Troponin I High Sens 16.1 pg/ml (0-20) 02/19/22 18:36 Total Protein 5.8 gm/dl (6.0-8.3) L 02/19/22 18:36 Albumin 3.1 gm/dl (3.4-5.0) L 02/19/22 18:36 Globulin 2.7 gm/dl (2.5-4.0) 02/19/22 18:36 Albumin/Globulin Ratio 1.1 (0.9-2) 02/19/22 18:36 Lipase TNP 02/19/22 18:36 TSH 0.959 uIu/ml (0.300-4.500) 02/19/22 18:36 Urine Color Dark Yellow 02/19/22 23:46 Urine Appearance Clear (Clear) 02/19/22 23:46 Urine pH 6.5 (4.5-7.5) 02/19/22 23:46 Ur Specific [place] > 1.045 (1.000-1.030) H 02/19/22 23:46 Urine Protein 1+ (Negative) H 02/19/22 23:46 Urine Glucose (UA) Negative (Negative) 02/19/22 23:46 Urine Ketones Negative (Negative) 02/19/22 23:46 Urine Blood Negative (Negative) 02/19/22 23:46 Urine Nitrite Positive (Negative) A 02/19/22 23:46 Urine Bilirubin 3+ (Negative) H 02/19/22 23:46 Urine Urobilinogen Negative (Negative) 02/19/22 23:46 Ur Leukocyte Esterase Trace (Negative) H 02/19/22 23:46 Urine WBC (Auto) 1-5 /hpf (0-5) 02/19/22 23:46 Urine RBC (Auto) 0-4 /hpf (0-4) 02/19/22 23:46 U Hyaline Cast (Auto) 1-5 /lpf (0-5) 02/19/22 23:46 U Epithel Cells (Auto) 0-5 /lpf (0-5) 02/19/22 23:46 Urine Bacteria (Auto) Negative (Negative) 02/19/22 23:46 SARS-CoV-2 (PCR) NEGATIVE (Negative) 02/19/22 20:36 Influenza Type A (PCR) Negative (Neg) 02/19/22 20:36 Influenza Type B (PCR) Negative (Neg) 02/19/22 20:36 RSV (RT-PCR) Negative (Neg) 02/19/22 20:36 Impressions Abdomen/Pelvis CT 02/19/22 18:46 CT angio chest PE protocol, CT abd pelvis IV con only HISTORY: 51 years-old Male with PE. Acute weakness with jaundice and history of esophageal carcinoma TECHNIQUE: Multiple CTA images of the chest were obtained after the intravenous administration of 102 ml Optiray. Coronal and sagittal MIPS were obtained from the axial data set and were submitted for review. CT abdomen and pelvis with IV contrast only was also obtained All measurements were obtained according to NASCET criteria. A dose lowering technique was utilized adhering to the principles of ALARA. COMPARISON: CT chest, abdomen and pelvis 02/07/2022 FINDINGS: CTA: The heart is upper limits of normal in size. There is no pericardial effusion. Ectasia of the ascending thoracic aorta, 3.9 cm without aneurysm or dissection. Unremarkable pulmonary artery. No filling defects to suggest pulmonary emboli. CT CHEST: No thyroid nodule. Right tracheoesophageal recess and right paratracheal lymphadenopathy with lymph nodes measuring up to 1.3 cm in short axis. Appear generally stable. There is no new or progressive lymphadenopathy identified with in the chest. Moderate hemidiaphragmatic elevation. No pneumothorax, pleural effusion, airspace consolidation, overt pulmonary edema, suspicious pulmonary nodules or masses identified. Unremarkable soft tissues. No acute fracture or destructive bone lesion identified. CT ABDOMEN/PELVIS: No pneumatosis or pneumoperitoneum. Unremarkable spleen, and adrenal glands. Interstitial and peripancreatic edema with trace abdominal pelvic ascites. Contracted gallbladder with wall thickening. There is a 2 mm hyperdense structure within the common bile duct on image 183. Intrahepatic and extrahepatic biliary ductal dilation is new/progressed from the prior study. There is focal narrowing of the common bile duct with possible stricturing/extrinsic mass effect from the malignant adjacent lymphadenopathy. Innumerable hepatic metastasis measure up to approximately 2 cm. The portal vein appears patent. Pathologic upper abdominal lymphadenopathy includes gastrohepatic lymph nodes/conglomerate adenopathy measuring up to 5.1 cm. Numerous pathologically enlarged retroperitoneal lymph nodes appear generally stable. Mild cortical scarring and parenchymal thinning of the left kidney. No hydronephrosis. Prostamegaly. Unremarkable urinary bladder. Aorta and IVC are within normal limits.Distal esophageal and proximal gastric wall thickening is redemonstrated and appears similar to the prior study. An esophageal stent is in place with distal portion of the stent abutting and partially extending through the greater curvature of the gastric body on image 1:30 series 6. There is mild adjacent inflammatory stranding. There is diffuse gastric wall thickening. No small bowel obstruction. Colonic diverticulosis. Residual contrast within the large bowel. Normal appendix. Unremarkable soft tissues. No acute fracture or new destructive bone lesion. IMPRESSION: 1. No pulmonary emboli identified. 2. Distal esophageal and proximal gastric wall thickening redemonstrated compatible with the patient's known primary malignancy. 3. Stable pathologic adenopathy of the chest, abdomen and pelvis. 4. The stent within the distal esophagus and proximal stomach abuts and partially extends through the greater curvature of the proximal gastric body 5. No pneumoperitoneum. 6. Innumerable hepatic metastasis. 7. Progressively worsened intrahepatic and extrahepatic biliary ductal dilation, possibly from extrinsic mass effect from the metastatic lymphadenopathy. Additionally, there is suggestion of choledocholithiasis. 8. Possible acute pancreatitis. Correlate with lipase level. 9. Additional findings as above. ACT 112: Negative or not required by law. The above report was generated using voice recognition software. It may contain grammatical, syntax or spelling errors. Electronically signed by: Ivan Archer M.D. 02/19/2022 9:34 PM Chest CTA 02/19/22 18:46 CT angio chest PE protocol, CT abd pelvis IV con only HISTORY: 51 years-old Male with PE. Acute weakness with jaundice and history of esophageal carcinoma TECHNIQUE: Multiple CTA images of the chest were obtained after the intravenous administration of 102 ml Optiray. Coronal and sagittal MIPS were obtained from the axial data set and were submitted for review. CT abdomen and pelvis with IV contrast only was also obtained All measurements were obtained according to NASCET criteria. A dose lowering technique was utilized adhering to the principles of ALARA. COMPARISON: CT chest, abdomen and pelvis 02/07/2022 FINDINGS: CTA: The heart is upper limits of normal in size. There is no pericardial effusion. Ectasia of the ascending thoracic aorta, 3.9 cm without aneurysm or dissection. Unremarkable pulmonary artery. No filling defects to suggest pulmonary emboli. CT CHEST: No thyroid nodule. Right tracheoesophageal recess and right paratracheal lymphadenopathy with lymph nodes measuring up to 1.3 cm in short axis. Appear generally stable. There is no new or progressive lymphadenopathy identified within the chest. Moderate hemidiaphragmatic elevation. No pneumothorax, pleural effusion, airspace consolidation, overt pulmonary edema, suspicious pulmonary nodules or masses identified. Unremarkable soft tissues. No acute fracture or destructive bone lesion identified. CT ABDOMEN/PELVIS: No pneumatosis or pneumoperitoneum. Unremarkable spleen, and adrenal glands. Interstitial and peripancreatic edema with trace abdominal pelvic ascites. Contracted gallbladder with wall thickening. There is a 2 mm hyperdense structure within the common bile duct on image 183. Intrahepatic and extrahepatic biliary ductal dilation is new/progressed from the prior study. There is focal narrowing of the common bile duct with possible stricturing/extrinsic mass effect from the malignant adjacent lymphadenopathy. Innumerable hepatic metastasis measure up to approximately 2 cm. The portal vein appears patent. Pathologic upper abdominal lymphadenopathy includes gastrohepatic lymph nodes/conglomerate adenopathy measuring up to 5.1 cm. Numerous pathologically enlarged retroperitoneal lymph nodes appear generally stable. Mild cortical scarring and parenchymal thinning of the left kidney. No hydronephrosis. Prostamegaly. Unremarkable urinary bladder. Aorta and IVC are within normal limits.Distal esophageal and proximal gastric wall thickening is redemonstrated and appears similar to the prior study. An esophageal stent is in place with distal portion of the stent abutting and partially extending through the greater curvature of the gastric body on image 1:30 series 6. There is mild adjacent inflammatory stranding. There is diffuse gastric wall thickening. No small bowel obstruction. Colonic diverticulosis. Residual contrast within the large bowel. Normal appendix. Unremarkable soft tissues. No acute fracture or new destructive bone lesion. IMPRESSION: 1. No pulmonary emboli identified. 2. Distal esophageal and proximal gastric wall thickening redemonstrated compatible with the patient's known primary malignancy. 3. Stable pathologic adenopathy of the chest, abdomen and pelvis. 4. The stent within the distal esophagus and proximal stomach abuts and partially extends through the greater curvature of the proximal gastric body 5. No pneumoperitoneum. 6. Innumerable hepatic metastasis. 7. Progressively worsened intrahepatic and extrahepatic biliary ductal dilation, possibly from extrinsic mass effect from the metastatic lymphadenopathy. Additionally, there is suggestion of choledocholithiasis. 8. Possible acute pancreatitis. Correlate with lipase level. 9. Additional findings as above. ACT 112: Negative or not required by law. The above report was generated using voice recognition software. It may contain grammatical, syntax or spelling errors. Electronically signed by: Ivan Archer M.D. 02/19/2022 9:34 PM Diagnostic Findings EKG as per my interpretation : rate 80, NSR, LAD, LAFB, incomplete RBBB, T wave abnormalities lateral leads Code Status & VTE Plan VTE Prophylaxis Plan VTE Prophylaxis will be ordered: Yes
[2022-02-20] MEDS: INSULIN ASPART PER UNIT SC SCH ×5 (03:51→23:20)
[2022-02-20 06:29] LABS: Basophils # (auto) 0.02 K/uL (0-0.2); Basophils % (auto) 0.1 %; Eosinophils # (auto) 0.01 K/uL (0-0.50); Eosinophils % (auto) 0.1 %; Hematocrit (blood only) 23.7 % (40.1-51.0); Hemoglobin 7.4 g/dl (14.0-18.0); Immature Granulocytes # (auto) 0.37 K/uL (0.00-0.02); Lymphocytes # (auto) 4.62 K/uL (1.2-3.4); Lymphocytes % (auto) 25.2 %; Mean Corpuscular Hemoglobin 25.3 pg (25.0-34.0); Mean Corpuscular Hgb Conc 31.2 g/dL (32.0-36.0); Mean Corpuscular Volume 80.9 fL (80.0-100.0); Mean Platelet Volume 10.8 fL (9.4-12.4); Monocytes # (auto) 0.97 K/uL (0.24-0.82); Monocytes % (auto) 5.3 %; Neutrophils # (auto) 12.34 K/uL (1.4-6.5); Neutrophils % (auto) 67.3 %; Nucleated RBC # (auto) 0.07 K/uL (0-0); Nucleated RBC % (auto) 0.4 %; Platelet Count 342 K/uL (130-400); RDW Coefficient of Variation 21.8 % (11.5-14.5); RDW Standard Deviation 62.5 fL (36.4-46.3); Red Blood Count 2.93 M/uL (4.63-6.08); White Blood Count 18.33 K/ul (4.8-10.8)
[2022-02-20 06:31] LABS: Albumin Globulin Ratio 1.2 (0.9-2); Albumin Level 2.7 gm/dl (3.4-5.0); BUN Creatinine Ratio 25.3 (10-20); Bilirubin,Total 15.6 mg/dl (0.2-1.0); Creatinine Clr Calc Pharmacy 116.3 ml/min; Est GFR (African American) 116.4 ml/min; Est GFR (Non-African American) 100.5 ml/min; Globulin 2.2 gm/dl (2.5-4.0); Potassium 3.1 mmol/L (3.5-5.1); Total Protein 4.9 gm/dl (6.0-8.3)
[2022-02-20 07:08] LABS: Anisocytosis Present; Schistocytes 1+; Stomatocytes 2+; Target Cells 2+
[2022-02-20] MEDS ORDERED: POTASSIUM CHLORIDE CRTAB 20 MEQ TABCR PO STA (08:18)
[2022-02-20] MEDS: PANTOprazole 40 MG TAB PO SCH (08:39)
[2022-02-20] MEDS: ENOXAPARIN INJ 30 MG/0.3 ML SYR SQ SCH (08:39)
[2022-02-20] MEDS: carvediloL 3.125 MG TAB PO SCH ×2 (08:39→20:08)
[2022-02-20] MEDS: PIPERACILLIN/TAZOBACTAM 3.375 GM in DEXTROSE 5% 100 ML IV SCH ×2 (08:40→16:59)
[2022-02-20] MEDS: LACTATED RINGER'S 1,000 ML IV SCH ×2 (10:18→16:59)
--- NOTE | 2022-02-20 15:40 | Communication Note ---
Date of Service: February 20, 2022 Follow-up for biliary obstruction, esophageal cancer with metastasis Seen resting in bed, comfortable, not in distress appears somewhat weak but awake and alert Denies abdominal pain, nausea vomiting, fevers or chills States he is tolerating liquids well Patient states that he has decided to transition to palliative care services He is requesting to consult transfer to [facility] Continue IV Zosyn for now Diet resumed with liquids only Continue symptom control Palliative care service consulted Isaiah Varela MD
--- NOTE | 2022-02-20 22:38 | Electrocardiogram Report ---
Test Reason : Blood Pressure : / mmHG Vent. Rate : 080 BPM Atrial Rate : 080 BPM P-R Int : 138 ms QRS Dur : 092 ms QT Int : 402 ms P-R-T Axes : 052 -11 090 degrees QTc Int : 463 ms Normal sinus rhythm Incomplete right bundle branch block Nonspecific ST and T wave abnormality Abnormal ECG When compared with ECG of 08-FEB-2022 08:14, Nonspecific T wave abnormality no longer evident in Inferior leads Confirmed by Yonny Castle ([id number]) on 02/20/2022 10:38:26 PM Referred By: REFERRED SELF Confirmed By:Yonny Castle
[2022-02-21] MEDS: PIPERACILLIN/TAZOBACTAM 3.375 GM in DEXTROSE 5% 100 ML IV SCH ×2 (01:31→08:54)
[2022-02-21 07:19] LABS: Hematocrit (blood only) 22.2 % (40.1-51.0); Hemoglobin 6.9 g/dl (14.0-18.0); Mean Corpuscular Hemoglobin 25.5 pg (25.0-34.0); Mean Corpuscular Hgb Conc 31.1 g/dL (32.0-36.0); Mean Corpuscular Volume 81.9 fL (80.0-100.0); Mean Platelet Volume 10.8 fL (9.4-12.4); Nucleated RBC # (auto) 0.16 K/uL (0-0); Platelet Count 308 K/uL (130-400); RDW Standard Deviation 63.5 fL (36.4-46.3); Red Blood Count 2.71 M/uL (4.63-6.08); White Blood Count 16.82 K/ul (4.8-10.8)
[2022-02-21 07:34] LABS: Albumin Level 2.6 gm/dl (3.4-5.0); BUN Creatinine Ratio 24.7 (10-20); Bilirubin,Total 15.3 mg/dl (0.2-1.0); Calcium 7.8 mg/dl (8.5-10.1); Creatinine Clr Calc Pharmacy 113.6 ml/min; Est GFR (African American) 115.3 ml/min; Est GFR (Non-African American) 99.5 ml/min; Total Protein 4.8 gm/dl (6.0-8.3)
[2022-02-21 07:51] LABS: Anisocytosis Present; Basophils # (auto) 0.01 K/uL (0-0.2); Basophils % (auto) 0.1 %; Eosinophils # (auto) 0.02 K/uL (0-0.50); Eosinophils % (auto) 0.1 %; Immature Granulocytes # (auto) 0.47 K/uL (0.00-0.02); Immature Granulocytes % (auto) 2.8 %; Lymphocytes # (auto) 4.99 K/uL (1.2-3.4); Lymphocytes % (auto) 29.7 %; Monocytes # (auto) 0.78 K/uL (0.24-0.82); Monocytes % (auto) 4.6 %; Neutrophils # (auto) 10.55 K/uL (1.4-6.5); Neutrophils % (auto) 62.7 %; Polychromasia 1+; Target Cells 1+
[2022-02-21] MEDS: carvediloL 3.125 MG TAB PO SCH (08:53)
[2022-02-21] MEDS: PANTOprazole 40 MG TAB PO SCH (08:53)
[2022-02-21] MEDS: ENOXAPARIN INJ 30 MG/0.3 ML SYR SQ SCH (08:54)
[2022-02-21] MEDS: INSULIN ASPART PER UNIT SC SCH ×2 (09:04→13:23)
[2022-02-21] MEDS: POTASSIUM CHLORIDE CRTAB 20 MEQ TABCR PO SCH ×2 (09:57→10:39)
[2022-02-21] MEDS ORDERED: POTASSIUM CHLORIDE PWD 20 MEQ PACK PO SCH (10:15)
--- NOTE | 2022-02-21 14:51 | Hospitalist Progress Note ---
Date of Service February 21, 2022 Assessment & Plan (1) Primary cancer of esophagus with metastasis to other site: Plan: (1) Sepsis: Secondary to biliary tract obstruction History esophageal cancer with liver mets -- Patient decided to transition to palliative care, hospice at home Case management on board Palliative care service also consulted -- Continue IV Zosyn As needed antiemetics, analgesics hx diastolic dysfunction (EF 55 to 60%, TTE 2021) -- Patient on the dry side hypertension -- Blood pressure stable chronic anemia -- hemoglobin at baseline DM2 diet-controlled, well-controlled as of recent hemoglobin A1c of 6.2 last January 2022 DVT prophylaxis with Lovenox subcu DNR Admission and Anticipated Discharge Date Admission Date: February 20, 2022 Subjective Follow-up for metastatic esophageal cancer, etc. Seen resting in bed, comfortable, not in distress States he did not get much sleep last night But feels fine overall today Has intermittent nausea, relieved with medication No abdominal pain No shortness of breath, chest pain or any other pain No Other symptoms Review of Systems Review of Systems: all noted and negative except for above Physical Exam Physical Exam: General- oriented x 3, not in distress, speaks in sentences with no effort or accessory muscle use Eyes-positive icterus Neck- no JVD Lungs- clear BS bilaterally, no rales/wheezes Heart- normal rate, regular rhythm; no murmurs Abdomen- normal bowel sounds, nondistended, soft, nontender Extremities- no pretibial edema, no calf tenderness Neuro- alert, oriented x 3; no gross focal neurologic deficits Skin- warm & dry, positive jaundice Results & Data Results & Data ([facility]) Vital Signs (Past 12 Hours) Vital Signs Temp Pulse Resp BP Pulse Ox 02/21/22 14:23 36.6 C 67 16 116/76 95 02/21/22 08:47 36.5 C 74 16 113/73 94 all noted and reviewed including below
--- NOTE | 2022-02-21 16:03 | Discharge Summary ---
Discharge Summary Date of Service February 21, 2022 Notes For Next Care Provider Patient transition to home with hospice services. Medication Changes From Visit None Admission HPI Per Admitting Provider History obtained from patient and records. Medical history significant for diastolic dysfunction (EF 55 to 60%, TTE 2021), hypertension, esophageal cancer with liver mets, chronic anemia (baseline hemoglobin 8-9), DM2 diet-controlled. 3 confinements this month nausea/emesis symptoms attributed to newly diagnosed esophageal carcinoma with liver mets. Patient saw [facility] oncologist on outpatient visit last week. Palliative chemotherapy recommended. IR guided a port placement scheduled at [facility] this week. Patient noted increasing weakness and jaundice over the last few days. No actual chest pain, SOB, abdominal pain, fever, chills. Increased abdominal distention. Some nausea symptoms. Patient consulted ER. CT imaging showedprogressively worsened intrahepatic and extrahepatic biliary ductal dilation, possibly from extrinsic mass effect from the metastatic lymphadenopathy. IV Cefepime administered at the ER. [place] [facility] [place] services for biliary tract obstruction pending bed availability. 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 Admission Exam Per Admitting Provider GENERAL: Comfortable, slightly anxious, no respiratory distress SKIN: Jaundiced, warm HEENT: Pale palpebral conjunctivae, no ptosis, icteric sclerae, dry buccal mucosa NECK : Supple, no tenderness CHEST : CTA, no tenderness HEART : RRR, no obvious murmurs ABDOMEN: distention, minimal epigastric tenderness EXTREMITIES : No LE swelling/tenderness, no other conspicuous deformities noted NEUROLOGIC : Coherent, no facial asymmetry, no other gross focality Principal Dx & Hospital Course #1 = Principal Diagnosis (1) Primary cancer of esophagus with metastasis to other site: (1) Sepsis: Secondary to biliary tract obstruction History esophageal cancer with liver mets -- Patient decided to transition to palliative care, hospice at home Case management on board Palliative care service also consulted -- Given IV Zosyn As needed antiemetics, analgesics -- Patient to be discharged to home today with hospice services hx diastolic dysfunction (EF 55 to 60%, TTE 2021) -- Patient on the dry side hypertension -- Blood pressure stable chronic anemia -- hemoglobin at baseline DM2 diet-controlled, well-controlled as of recent hemoglobin A1c of 6.2 last January 2022 DVT prophylaxis with Lovenox subcu DNR Discharge Exam General- oriented x 3, not in distress, speaks in sentences with no effort or accessory muscle use Eyes-positive icterus Neck- no JVD Lungs- clear BS bilaterally, no rales/wheezes Heart- normal rate, regular rhythm; no murmurs Abdomen- normal bowel sounds, nondistended, soft, nontender Extremities- no pretibial edema, no calf tenderness Neuro- alert, oriented x 3; no gross focal neurologic deficits Skin- warm & dry, positive jaundice Updated Medication List Medication Instructions Recorded Confirmed Type carvedilol 12.5 mg tablet 12.5 mg PO QAM 02/01/22 02/19/22 History ondansetron HCl 4 mg tablet 4 mg PO Q8H PRN Nausea 02/07/22 02/19/22 History omeprazole 40 mg capsule,delayed 40 mg PO QAM 02/19/22 02/19/22 History release oxycodone 10 mg tablet 10 mg PO Q4 PRN Pain, Moderate 02/19/22 02/19/22 History Hospital Stay Data Consultations 02/19/22 22:35 ED Decision to Admit Stat 02/20/22 00:52 Consult Palliative Care Routine Diagnostic Imagining Performed 02/19/22 18:46 CT abd pelvis IV con only Stat CT angio chest PE protocol Stat Pending Results Patient Have Any Pending Studies at Discharge: No Discharge Instructions Given to Patient (Per Discharging Provider) Hospice services to continue providing care at home. Total Time Total Time Spent Total Time Spent (In Minutes): >30 minutes
== END 2022-02-21 17:05 | disposition hospice, home (50) | DRG 871 ==
LOC: ED 18:18 → EDINP 02-20 00:49 → INTOOBSV 02-20 00:49 → 3E 02-20 02:30